=== PATIENT | female | born 1990 | race Two or more races ===

== ENCOUNTER 2024-01-24 09:42 | Outpatient (CLI) | payer MEDICAID, SELFPAY ==
[2024-01-24 10:11] LABS: Basophils # 0.1 K/mm3 (0-0.2); Eosinophils # 0.3 K/mm3 (0.0-0.4); Eosinophils % 3.3 % (0.1-12.0); Hematocrit 43.7 % (37.0-47.0); Hemoglobin 14.5 g/dL (12.2-16.2); Lymphocytes # 3.5 K/mm3 (0.7-4.5); Lymphocytes % 33.8 % (10-50); Mean Corpuscular HGB Conc 33.2 g/dL (31.8-35.4); Mean Corpuscular Hemoglobin 30.7 pg (27.0-31.2); Mean Corpuscular Volume 92.4 fl (81-99); Mean Platelet Volume 7.4 fl (7.4-10.4); Monocytes # 0.7 K/mm3 (0.1-1.0); Monocytes % 6.4 % (1.7-9.3); Neutrophils # 5.7 K/mm3 (1.8-7.8); Neutrophils % 55.5 % (37.0-80.0); Platelet Count 381 K/mm3 (142-424); Red Blood Count 4.73 M/mm3 (4.20-5.40); Red Cell Distribution Width 14.5 % (11.5-17.5); White Blood Count 10.2 K/mm3 (4.8-10.8)
[2024-01-24 10:46] LABS: Alanine Aminotransferase 34 U/L (12-78); Alkaline Phosphatase 146 U/L (38-126); Anion Gap 10.1 mEq/L (5-15); Aspartate Amino Transferase 49 U/L (14-36); Bilirubin,Direct 0.1 mg/dl (0.0-0.4); Bilirubin,Indirect 0.2 mg/dL (0.0-0.9); Bilirubin,Total 0.3 mg/dl (0.2-1.3); Bilirubin,Unconjugated 0.2 mg/dL (0.0-1.1); Blood Urea Nitrogen 12 mg/dl (7-17); Calcium 10.3 mg/dl (8.4-10.2); Carbon Dioxide 26 mmol/L (22.0-30.0); Chloride 110 mmol/L (98-107); Chol/HDL Ratio 4.2 (1-3.5); Cholesterol 235 mg/dl (140-200); Estimated Glomerular Filt Rate 117 ml/min (>60); GFR (African American) 141 ML/MIN (>60); Glucose 77 mg/dl (74-100); HDL Cholesterol 56 mg/dl (40-60); Magnesium 1.7 mg/dl (1.6-2.3); Potassium 4.1 mmoL/L (3.5-5.1); Sodium 142 mmol/L (136-145); Total Protein,Serum 6.6 g/dl (6.3-8.2); Triglycerides 185 mg/dl (30-150); VLDL Cholesterol 37 mg/dL (0-40)
[2024-01-24 10:56] LABS: Direct LDL Cholesterol 125.79 mg/dL (100-129)
[2024-01-24 10:59] LABS: Free T4 (Free Thyroxine) 0.94 ng/dl (0.78-2.19)
[2024-01-24 11:14] LABS: Thyroid Stimulating Hormone 0.92 uIU/mL (0.465-4.68)
== END 2024-01-24 23:59 | disposition home or self-care (01) ==
LOC: LAB 09:45
PROVIDERS: Visit Provider Nurse Practitioner
DX: R00.2 Palpitations (principal); I49.1 Atrial premature depolarization; Z86.79 Personal history of other diseases of the circulatory system
CPT/HCPCS: 36415; 80048; 80061; 80076; 83735; 84439; 84443; 85025; 93270

== ENCOUNTER 2024-02-19 19:46 | Emergency (ER) | payer MEDICAID, SELFPAY ==
[2024-02-19 19:46] VITALS: BP 106/58; PULSE 77; RESP 22; TEMP 36.9; O2SAT 100; BMI 31.9
--- NOTE | 2024-02-19 19:54 | ECG_ITS ---
APPROVED REPORT Exam: Resting ECG HR:60 bpm ECG Measurements Heart Rate 60 AXES ME 153 P 55 QRSd 102 QRS 68 QT 413 T 59 QTc 414 Conclusion SINUS RHYTHM NORMAL ECG UNCONFIRMED REPORT Electronically signed by : Basim Mccarthy, 02/19/2024 23:13:25
--- NOTE | 2024-02-19 19:59 | XR_ITS ---
PROCEDURE INFORMATION: Exam: XR Chest Exam date and time: 02/19/2024 8:23 PM Age: 33 years old Clinical indication: Chest wall pain; Additional info: Dyspnea TECHNIQUE: Imaging protocol: Radiologic exam of the chest. Views: 1 view. COMPARISON: No relevant prior studies available. FINDINGS: Lungs: Normal. Pleural spaces: Unremarkable. No pleural effusion. No pneumothorax. Heart/Mediastinum: Normal. Bones/joints: No acute abnormality. IMPRESSION: No acute findings.
[2024-02-19 20:00] VITALS: PULSE 60
--- NOTE | 2024-02-19 20:01 | ED_ITS ---
Discharge Plan Disposition Patient Disposition: Still a Patient Prescriptions Prescriptions: No Action buprenorphine-naloxone 8-2 mg film 1.5 film sublingual DAILY Patient Comments: Place 1&1/2 filmS under tongue once a day propranolol 40 mg tablet 40 mg PO BID Qty: 60 2RF Referrals Follow up/Referrals: Azael Sierra MD [Staff Physician] - See instructions Activity Restrictions/Add. Instructions Additional Instructions/Restrictions: Call Dr. Sierra for next available appointment return to the emergency room with any worsening symptoms no emergent medical condition identified today. Clinical Impressions Clinical Impression: Dizziness, Heart palpitations, Hypokalemia, Pre-syncope Discharge ED Provider: Juan Mccarthy General Adult HPI General Chief complaint: Arrhythmia/Palpitations Stated complaint: runs of svt with cp Time Seen by Provider: 02/19/24 19:56 Mode of Arrival: EMS Source of Information: Patient Limitations: No Limitations Description of Symptoms (Recalled from ER Triage Doc. by RN): pt has hx of SVT and going in and out of the rythym today, pt has been wearing a holter monitor and sees dr sierra on the History of Present Illness HPI narrative: Is a 33-year-old female who claims that she has a history of SVT presents today with near syncope lightheadedness and palpitations. She was at work states she fell and hit her head did not have any loss of consciousness but was very lightheaded and dizzy. She states that those symptoms have since almost completely resolved. She was recently in our cardiology office today had a 2- week event monitor that was planned and an echo and she is following with Dr. Sierra has an appointment on the of next month. EMS reported that she was in SVT but we do not have a rhythm strip to look at. Patient without any symptoms other than some dizziness at the moment. No nausea vomiting diarrhea changes in medications etc. Related Data Home Medications Medication Instructions Recorded Confirmed buprenorphine 8 mg-naloxone 2 mg 1.5 film sublingual DAILY 01/24/24 01/24/24 sublingual film Previous Rx's Medication Instructions Recorded propranolol 40 mg tablet 40 mg PO BID #60 tabs 01/24/24 Allergies Allergy/AdvReac Type Severity Reaction Status Date / Time NO KNOWN ALLERGIES Allergy Uncoded 01/24/24 09:11 [facility] Disclaimer: The information contained in this section may have been updated after the patient was seen, as this information can be updated by other users. Medical History HTN (hypertension) Bipolar 1 disorder Surgical History History of appendectomy Social History Smoking Status: Current every day smoker alcohol intake: never substance use type: marijuana current occupational status: employed Travel in the last 8 weeks: Inside the [place] ROS Obtained: Yes All systems reviewed & no additional complaints except as documented Physical Exam General General appearance: alert Respiratory Respiratory exam: Present normal lung sounds bilaterally; Absent respiratory distress Cardiovascular Cardiovascular exam: Present regular rate and normal rhythm Neurological Exam Neurological exam: Present alert, oriented X3 and other (Slightly tremulous) Medical Decision Making Shayan Inquiry Pt receiving controlled substance: No Vital Signs: 02/19/24 19:46 Temperature 98.5 F Temperature Source Oral Pulse Rate [Right Radial] 77 Respiratory Rate 22 Blood Pressure [Right Arm] 106/58 L Blood Pressure Mean [Right Arm] 74 02 Sat by Pulse Oximetry 100 Oxygen Delivery Method Room Air Lab Data Lab results reviewed: Yes I reviewed the patient's lab results. Lab Results 02/19/24 20:10: WBC 9.7, RBC 4.65, Hgb 14.1, Hct 43.4, MCV 93.3, MCH 30.2, MCHC 32.4, RDW 14.3, Plt Count 363, MPV 7.4, Neut % (Auto) 49.5, Lymph % (Auto) 40.5, [place] % (Auto) 4.4, Eos % (Auto) 4.6, Baso % (Auto) 1.0, Neut # (Auto) 4.8, Lymph # (Auto) 3.9, [place] # (Auto) 0.4, Eos # (Auto) 0.4, Baso # (Auto) 0.1, Sodium 140, Potassium 3.1 L, Chloride 108 H, Carbon Dioxide 28, Anion Gap 7.1, BUN 12, Creatinine 0.60, Estimated Creat Clear 181, Estimated GFR 117, Est GFR ( Amer) 141, Glucose 77, Calcium 9.5, Magnesium 1.7, Total Bilirubin 0.3, AST 57 H , ALT 60, Alkaline Phosphatase 140 H, Troponin I < 0.01, Total Protein 7.3, Albumin 4.1, Globulin 3.2, Albumin/Globulin Ratio 1.3, TSH 1.25 02/19/24 20:10 02/19/24 20:10 Orders (Tests/Meds): ED MEDICATIONS Generic Name Dose Route Start Last Admin Trade Name Freq PRN Reason Stop Dose Admin Potassium Chloride 60 meq 02/19/24 21:32 Potassium Chloride 20meq Tab PO 02/19/24 21:33 ONCE ONE Discontinued Medications Generic Name Dose Route Start Last Admin Trade Name Freq PRN Reason Stop Dose Admin Lactated Ringer's 1,000 mls @ 999 mls/hr 02/19/24 20:00 02/19/24 20:13 Lactated Ringer's 1000 Ml Bag IV 02/19/24 21:00 999 mls/hr .Q1H1M KARRI Administration ORDERS Category Date Time Status CXR --portable [XR chest portable] Stat Exams 02/19/24 19:59 Completed CBC w/Auto Diff [Complete Blood Count Auto Diff] Stat Lab 02/19/24 20:10 Completed CMP [Comprehensive Metabolic Panel] Stat Lab 02/19/24 20:10 Completed Magnesium Stat Lab 02/19/24 20:10 Completed TSH [Thyroid Stimulating Hormone] Stat Lab 02/19/24 20:10 Completed Trop I [Troponin I] Stat Lab 02/19/24 20:10 Completed Troponin I Q3H Lab 02/19/24 23:00 Ordered Troponin I Q3H Lab 02/20/24 02:00 Ordered ECG Data Tracing #1: I reviewed this ECG and interpreted as documented below: Ventricular to 60 normal sinus rhythm no acute ischemic changes noted normal axis no conduction abnormalities normal EKG Medical Decision Narrative: 33-year-old female with a questionable history of SVT is being worked up and followed by cardiology with an event monitor and echo presents today with similar symptoms. She is stable EKG is normal will place her on a monitor check electrolytes TSH magnesium etc. IV fluids will be administered and if all normal she will be able to be followed up outpatient with cardiology as previously instructed.- Reassessment 933 patient asymptomatic feels much better vital signs stable has not had any recurrence of her symptoms potassium mildly depressed she was given 60 p.o. potassium. Will follow-up with Dr. Sierra she did recently have a 2- week monitor and she is post to follow-up with them for results given the fact that she is in the emergency department I advised that she call tomorrow for an earlier appointment to see if there is any significant abnormalities on that. Still awaiting her echo because of insurance reasons. She was discharged in stable condition. Critical Care Critical Care Time Critical Care Time: No
[2024-02-19] MEDS: LACTATED RINGERS 1000ML 1,000 ML 999 ML IV (20:13)
[2024-02-19 20:20] LABS: Basophils # 0.1 K/mm3 (0-0.2); Eosinophils # 0.4 K/mm3 (0.0-0.4); Eosinophils % 4.6 % (0.1-12.0); Hematocrit 43.4 % (37.0-47.0); Hemoglobin 14.1 g/dL (12.2-16.2); Lymphocytes # 3.9 K/mm3 (0.7-4.5); Lymphocytes % 40.5 % (10-50); Mean Corpuscular HGB Conc 32.4 g/dL (31.8-35.4); Mean Corpuscular Hemoglobin 30.2 pg (27.0-31.2); Mean Corpuscular Volume 93.3 fl (81-99); Mean Platelet Volume 7.4 fl (7.4-10.4); Monocytes # 0.4 K/mm3 (0.1-1.0); Monocytes % 4.4 % (1.7-9.3); Neutrophils # 4.8 K/mm3 (1.8-7.8); Neutrophils % 49.5 % (37.0-80.0); Platelet Count 363 K/mm3 (142-424); Red Blood Count 4.65 M/mm3 (4.20-5.40); Red Cell Distribution Width 14.3 % (11.5-17.5); White Blood Count 9.7 K/mm3 (4.8-10.8)
[2024-02-19 20:27] LABS: Chloride 108 mmol/L (98-107)
[2024-02-19 20:28] LABS: Potassium 3.1 mmoL/L (3.5-5.1); Sodium 140 mmol/L (136-145)
[2024-02-19 20:30] LABS: Alanine Aminotransferase 60 U/L (12-78); Aspartate Amino Transferase 57 U/L (14-36); Blood Urea Nitrogen 12 mg/dl (7-17); Creatinine Clearance Estimated 181 mL/min (50-200); Estimated Glomerular Filt Rate 117 ml/min (>60); GFR (African American) 141 ML/MIN (>60)
[2024-02-19 20:31] LABS: Albumin Level 4.1 g/dl (3.5-5.0); Albumin/Globulin Ratio 1.3 (1.1-1.8); Alkaline Phosphatase 140 U/L (38-126); Anion Gap 7.1 mEq/L (5-15); Bilirubin,Total 0.3 mg/dl (0.2-1.3); Calcium 9.5 mg/dl (8.4-10.2); Carbon Dioxide 28 mmol/L (22.0-30.0); Globulin 3.2 g/dL (1.3-3.2); Glucose 77 mg/dl (74-100); Magnesium 1.7 mg/dl (1.6-2.3); Total Protein,Serum 7.3 g/dl (6.3-8.2)
[2024-02-19 20:51] LABS: Troponin I < 0.01 ng/ml (0.00-0.034)
[2024-02-19 21:02] LABS: Thyroid Stimulating Hormone 1.25 uIU/mL (0.465-4.68)
[2024-02-19] MEDS: POTASSIUM CHLORIDE 20MEQ TAB 60 MEQ PO (21:36)
[2024-02-19 21:39] VITALS: BP 121/72; PULSE 72; RESP 15; TEMP 36.6; O2SAT 99
== END 2024-02-19 21:40 | disposition still patient (30) ==
PROVIDERS: Emergency Provider Student in an Organized Health Care Education/Training Program
DX: E87.6 Hypokalemia (principal); R55 Syncope and collapse; R00.2 Palpitations; R42 Dizziness and giddiness; I10 Essential (primary) hypertension; F17.210 Nicotine dependence, cigarettes, uncomplicated; Z86.79 Personal history of other diseases of the circulatory system
CPT/HCPCS: 71045; 80053; 83735; 84443; 84484; 85025; 93005; 96360; 99284; J7120

== ENCOUNTER 2024-02-28 17:13 | Emergency (ER) | payer MEDICAID, SELFPAY ==
[2024-02-28 17:20] VITALS: BP 120/72; PULSE 96; RESP 18; TEMP 36.9; O2SAT 97; BMI 31.9
--- NOTE | 2024-02-28 17:26 | ED_ITS ---
Discharge Plan Disposition Patient Disposition: Home, Self-Care Condition: Good Prescriptions Prescriptions: New cyclobenzaprine 10 mg Tablet 10 mg PO BID PRN (Reason: Muscle Spasm) Qty: 20 0RF methylprednisolone 4 mg Tablets,Dose Pack 4 mg PO DIRECTED 6 Days Qty: 21 0RF Rx Instructions: Take 1 pack as directed for 6 days No Action buprenorphine-naloxone 8-2 mg film 1.5 film sublingual DAILY Patient Comments: Place 1&1/2 filmS under tongue once a day oxcarbazepine 300 mg tablet 300 mg PO DAILY mirtazapine 30 mg tablet 30 mg PO HS Patient Comments: TAKE 1 TABLET BY MOUTH ONCE DAILY AT BEDTIME aripiprazole 10 mg tablet 10 mg PO DAILY Patient Comments: TAKE 1 TABLET BY MOUTH ONCE DAILY FOR 30 DAYS Trintellix 20 mg tablet 20 mg PO DAILY Patient Comments: TAKE 1 TABLET BY MOUTH ONCE DAILY metoprolol succinate 25 mg tablet extended release 24 hr 25 mg PO DAILY Qty: 30 2RF Referrals Follow up/Referrals: Provider,Referral, MD [Primary Care Provider] - See instructions Activity Restrictions/Add. Instructions Additional Instructions/Restrictions: Go home and rest. It would be best if you rested tomorrow too. No heavy lifting. No twisting. Take the oral medications as directed. The muscle relaxer (cyclobenzaprine--Flexeril) will make you drowsy, so don't drive or operate heavy machinery after taking it. Follow up with your regular doctor. GO TO THE ER FOR ANY WORSENING SYMPTOMS OR CONCERN, ESPECIALLY BOWEL OR BLADDER ISSUES, SADDLE AREA NUMBNESS, FEVER, ETC Clinical Impressions Clinical Impression: Low back pain with sciatica Instructions Patient Instructions: Low Back Pain, DI for Low Back Pain, Cyclobenzaprine, Methylprednisolone Discharge ED Provider: Basim Francisco [facility] General Stated complaint: back pain, bilateral leg pain. Time Seen by Provider: 02/28/24 17:22 History of Present Illness Provider Complaint: She states that for the past 3 days she has had low back pain that radiates down both legs. She denies any urinary complaints. She denies any fall or trauma. Related Data Home Medications Medication Instructions Recorded Confirmed buprenorphine 8 mg-naloxone 2 mg 1.5 film sublingual DAILY 01/24/24 02/28/24 sublingual film aripiprazole 10 mg tablet 10 mg PO DAILY 02/22/24 02/28/24 mirtazapine 30 mg tablet 30 mg PO HS 02/22/24 02/28/24 oxcarbazepine 300 mg tablet 300 mg PO DAILY 02/22/24 02/28/24 vortioxetine 20 mg tablet 20 mg PO DAILY 02/22/24 02/28/24 (Trintellix) Previous Rx's Medication Instructions Recorded metoprolol succinate 25 mg 25 mg PO DAILY #30 tabs 02/22/24 tablet,extended release 24 hr cyclobenzaprine 10 mg tablet 10 mg PO BID PRN Muscle Spasm #20 02/28/24 tabs methylprednisolone 4 mg tablets in 4 mg PO DIRECTED 6 days #21 tabs 02/28/24 a dose pack Allergies Allergy/AdvReac Type Severity Reaction Status Date / Time NO KNOWN ALLERGIES Allergy Unknown Uncoded 02/28/24 17:36 [facility] Disclaimer: The information contained in this section may have been updated after the patient was seen, as this information can be updated by other users. Medical History (Updated 02/28/24 @ 18:04 by Basim Francisco APRN) Syncope HTN (hypertension) Bipolar 1 disorder Surgical History History of appendectomy Social History Smoking Status: Current every day smoker alcohol intake: never substance use type: marijuana current occupational status: employed Travel in the last 8 weeks: Inside the [place] ROS Obtained: Yes All systems reviewed & no additional complaints except as documented Constitutional Constitutional: Denies chills and Denies fever(s) Eyes Eyes: Denies eye discharge ENT Ears, Nose, Mouth, and Throat: Denies dizziness, Denies otalgia and Denies sore throat Cardiovascular Cardiovascular: Denies chest pain Respiratory Respiratory: Denies shortness of breath, Denies chest congestion, Denies cough, Denies stridor and Denies wheezing Gastrointestinal Gastrointestingal: Denies nausea or vomiting Genitourinary Female Genitourinary: Denies dysuria, Denies urinary frequency, Denies urinary incontinence, Denies urinary hesitancy and Denies urinary urgency Musculoskeletal Musculoskeletal: Reports as per HPI and Reports back pain Integumentary/Breasts Skin/Breast: Denies rash Neurologic Neurologic: Denies dizziness and Denies paresthesias Allergic/Immunologic Allergic/Immunologic: Denies wheezing Physical Exam General General appearance: alert and in no apparent distress Head Head exam: atraumatic, normocephalic and normal inspection Eye Eye exam: Present normal appearance, PERRL and EOMI ENT ENT exam: Present normal exam, normal oropharynx, mucous membranes moist, TM's normal bilaterally and normal external ear exam Neck Neck exam: Present normal inspection, full ROM and trachea midline; Absent meningismus or lymphadenopathy Chest Chest inspection: Present normal inspection and symmetric chest wall rise; Absent tenderness Respiratory Respiratory exam: Present normal lung sounds bilaterally; Absent respiratory dis tress Cardiovascular Cardiovascular exam: Present regular rate and normal rhythm; Absent JVD Abdominal Exam Abdominal exam: Present soft and normal bowel sounds; Absent distention, tenderness or guarding Extremities Exam Extremities exam: Present normal inspection, full ROM and normal capillary refill; Absent calf tenderness Back Exam Back exam: Present normal inspection; Absent tenderness Neurological Exam Neurological exam: Present alert, oriented X3, CN II-XII intact, normal gait and reflexes normal; Absent motor sensory deficit Expanded Neurological Exam Cranial nerves: Normal: EOM function (II, III, IV, ), facial sensation (V), facial palsy (VII), gag reflex (IX), spinal accessory function (XI) and tongue deviation (XII) Cerebellar function: normal gait Motor strength - LUE: 5/5 Motor strength - RUE: 5/5 Motor strength - LLE: 5/5 Motor strength - RLE: 5/5 Upper motor neuron exam: Normal: cori neglect and sensory extinction Sensory exam upper extremity: Normal: light touch and 2 point discrimination Sensory exam lower extremity: Normal: light touch and 2 point discrimination DTR: 2+: biceps (L), biceps (R), patellar (L), patellar (R), Achilles tendon (L) and Achilles tendon (R) Spinal cord function: Absent saddle anesthesia Psychiatric Psychiatric exam: Present normal affect and normal mood Skin Skin exam: Present warm, dry, intact and normal color Lymphatic Lymphatic Findings: no adenopathy Medical Decision Making Medical Records Medical records reviewed: No I reviewed the patient's medical records. Shayan Inquiry Pt receiving controlled substance: No
[2024-02-28 18:08] VITALS: BP 120/72; PULSE 96; RESP 18; TEMP 36.9; O2SAT 97
== END 2024-02-28 18:08 | disposition home or self-care (01) ==
PROVIDERS: Emergency Provider Nurse Practitioner Family
DX: M54.41 Lumbago with sciatica, right side (principal); M54.42 Lumbago with sciatica, left side; F17.210 Nicotine dependence, cigarettes, uncomplicated
CPT/HCPCS: 99204; 99212; G0463

== ENCOUNTER 2024-03-05 13:23 | Outpatient (CLI) | payer MEDICAID, SELFPAY ==
--- NOTE | 2024-03-05 13:24 | CA_ITS ---
APPROVED REPORT EXAM: Comprehensive 2D, Doppler, and color-flow Echocardiogram Table Setter: Shannan Crawford RT(R) Ht: 5 ft 4 in Wt: 191lbs BSA: 1.92 BP: 121/66 mmHg Indications: SVT, CP, smoker, HTN, palpitations, bipolar, vertigo, excessive sweating. 2D Dimensions Left Atrium 4.08 cm F: 2.7 - 3.8 LA Volume 51.90 mL LVOT 1.99 cm (M/F) 1.5-2.5 LA Volume Index 27.03 mL/m2 (M/F) 16-34 EF AP4 50.30 % GL Strain -18.7 % M-Mode Dimensions RVDd 2.55 cm (0.9-2.6) LVDd 4.59 cm (3.5-5.7) Ao Diam 2.67 cm (2.0-3.7) LVDs 3.37 cm (3.5-5.7) IVSd 0.85 cm (0.6-1.1) PWd 0.89 cm (0.6-1.1) EF (Teich) 52.10% FS 26.60% EDV (Teich) 96.80 mL ESV (Teich) 46.40 mL LV Diastology E Decel Time 236 (160-240 msec) E/A Ratio 1.6 MED E' 10.4 (>= 7 cm/sec) E'/MED E' Ratio 7.80 (<= 14) LAT E' 15.5 (>= 10 cm/sec) E/LAT E' Ratio 5.23 (<= 14) Mitral Valve MV E Max Talon. 81.0 (40-130 cm/s) MV A Velocity 52.0 (40-130 cm/s) E/A Ratio 1.55 MV Decel. Time 236 (160-240 ms) Left Ventricle The left ventricle is normal size. The left ventricular systolic function is normal. The left ventricular ejection fraction is within the normal range. There is normal left ventricular wall thickness. There is normal LV segmental wall motion. The left ventricular diastolic function is normal. LVEF is 55%. Right Ventricle The right ventricle is normal size. The right ventricular systolic function is normal. Atria The left atrium size is normal. The right atrium size is normal. There is no Doppler evidence of interatrial shunt. Aortic Valve The aortic valve opens well. There is no aortic valvular stenosis. No aortic regurgitation is present. Mitral Valve The mitral valve is normal in structure. No evidence of mitral valve stenosis. Trace mitral regurgitation. Tricuspid Valve The tricuspid valve leaflets are thin and pliable. Mild tricuspid regurgitation. RVSP is 20-25 mmHg. Pulmonic Valve The pulmonary valve is normal in structure. Trace pulmonic regurgitation. Great Vessels The aortic root is normal in size. The ascending aorta is normal in size. IVC is normal in size and collapses >50% with inspiration. Pericardium There is no pericardial effusion. Other Information Study Quality: Adequate Conclusion Normal biventricular systolic function. Mild TR. Electronically signed by : Sharon Reilly MD 03/06/2024 13:40:26
== END 2024-03-05 23:59 | disposition home or self-care (01) ==
LOC: RT 13:24
PROVIDERS: Visit Provider Nurse Practitioner
DX: R00.2 Palpitations (principal); Z86.79 Personal history of other diseases of the circulatory system; I49.1 Atrial premature depolarization
CPT/HCPCS: 93306

== ENCOUNTER 2024-05-14 11:28 | Emergency (ER) | payer MEDICAID, SELFPAY ==
[2024-05-14 11:28] VITALS: BP 118/65; PULSE 70; RESP 16; TEMP 36.6; O2SAT 98; BMI 34.3
--- NOTE | 2024-05-14 11:29 | ECG_ITS ---
APPROVED REPORT Exam: Resting ECG HR:59 bpm ECG Measurements Heart Rate 59 AXES OK 151 P 51 QRSd 105 QRS 54 QT 421 T 49 QTc 421 Conclusion Sinus bradycardia Electronically signed by : MIGUEL CORDOVA, 05/15/2024 21:59:59
--- NOTE | 2024-05-14 11:31 | XR_ITS ---
FINAL REPORT CLINICAL HISTORY: palpitations COMPARISON: 02/19/2024 FINDINGS: SINGLE-VIEW CHEST The heart size is normal. The mediastinum is normal. The lungs are underinflated. There is no pneumothorax. IMPRESSION: No acute cardiopulmonary process. Reviewed, Interpreted and Dictated by Frandy Rdz MD Transcribed by Neli Pryor Authenticated and [facility]
--- NOTE | 2024-05-14 11:38 | PC.NURSE ---
RAD at for CXR
[2024-05-14 11:47] LABS: Basophils % 0.4 % (0.1-2.0); Eosinophils # 0.1 K/mm3 (0.0-0.4); Eosinophils % 1.1 % (0.1-12.0); Hematocrit 44.8 % (37.0-47.0); Hemoglobin 14.1 g/dL (12.2-16.2); Lymphocytes # 1.7 K/mm3 (0.7-4.5); Lymphocytes % 20.2 % (10-50); Mean Corpuscular HGB Conc 31.5 g/dL (31.8-35.4); Mean Corpuscular Hemoglobin 30.5 pg (27.0-31.2); Mean Corpuscular Volume 96.8 fl (81-99); Mean Platelet Volume 7.2 fl (7.4-10.4); Monocytes # 0.4 K/mm3 (0.1-1.0); Monocytes % 4.1 % (1.7-9.3); Neutrophils # 6.3 K/mm3 (1.8-7.8); Neutrophils % 74.2 % (37.0-80.0); Platelet Count 370 K/mm3 (142-424); Red Blood Count 4.63 M/mm3 (4.20-5.40); Red Cell Distribution Width 13.7 % (11.5-17.5); White Blood Count 8.5 K/mm3 (4.8-10.8)
--- NOTE | 2024-05-14 11:50 | ED_ITS ---
Discharge Plan Disposition Patient Disposition: Home, Self-Care Prescriptions Prescriptions: No Action furosemide [Lasix] 20 mg tablet 20 mg PO DAILY PRN (Reason: edema) Qty: 30 3RF buprenorphine-naloxone 8-2 mg film 1.5 film sublingual DAILY Patient Comments: Place 1&1/2 filmS under tongue once a day metoprolol succinate [Toprol XL] 100 mg tablet extended release 24 hr 50 mg PO DAILY Qty: 90 3RF oxcarbazepine 300 mg tablet 300 mg PO DAILY mirtazapine 30 mg tablet 30 mg PO HS Patient Comments: TAKE 1 TABLET BY MOUTH ONCE DAILY AT BEDTIME aripiprazole 10 mg tablet 10 mg PO DAILY Patient Comments: TAKE 1 TABLET BY MOUTH ONCE DAILY FOR 30 DAYS Trintellix 20 mg tablet 20 mg PO DAILY Patient Comments: TAKE 1 TABLET BY MOUTH ONCE DAILY cyclobenzaprine 10 mg Tablet 10 mg PO BID PRN (Reason: Muscle Spasm) Qty: 20 0RF methylprednisolone 4 mg Tablets,Dose Pack 4 mg PO DIRECTED 6 Days Qty: 21 0RF Rx Instructions: Take 1 pack as directed for 6 days Referrals Follow up/Referrals: Dc Galdamez MD [Staff Physician] - See instructions Activity Restrictions/Add. Instructions Additional Instructions/Restrictions: Follow-up with Dr. Galdamez regarding this visit to the emergency department and hyperthyroidism in the setting of palpitations. Hepatitis labs are pending, but these will result and you will be called if they are positive. Call your family doctor to establish care for this visit to the emergency department and schedule follow-up within 48 hours to ensure improvement. If you have any worsening of your condition or any other concerning signs or symptoms, return to the emergency department or your primary care doctor for further evaluation. Clinical Impressions Clinical Impression: Palpitations, Hyperthyroidism Print Language Print Language: Vincentian Discharge ED Provider: Mark Fischer HPI General Chief Complaint: Arrhythmia/Palpitations Stated Complaint: PALPITATIONS/HX SVT Time Seen by Provider: 05/14/24 11:30 History of Present Illness HPI narrative: Please note that above description of symptoms, in this electronic medical record under categorization of recalled from ER triage doctor by RN are reflective of an initial nursing assessment, however, is not reflective of my full history and physical exam that was personally taken and clarified. Consequentially, this preceding description of symptoms, which may include the patient's categorized chief complaint in the EMR, do not reflect my personal clinical impression, and the ultimate description of history of present illness and patient stated complaints should be deferred to this section of the note. Unless stated otherwise or congruent with this section of the note, additional signs, symptoms, or incongruence should be interpreted as inaccurate with my clinical impression. Related Data Home Medications ?Medication ?Instructions ?Recorded ?Confirmed buprenorphine 8 mg-naloxone 2 mg 1.5 film sublingual DAILY 01/24/24 04/24/24 sublingual film aripiprazole 10 mg tablet 10 mg PO DAILY 02/22/24 04/24/24 mirtazapine 30 mg tablet 30 mg PO HS 02/22/24 04/24/24 oxcarbazepine 300 mg tablet 300 mg PO DAILY 02/22/24 04/24/24 vortioxetine 20 mg tablet 20 mg PO DAILY 02/22/24 04/24/24 (Trintellix) Previous Rx's ?Medication ?Instructions ?Recorded cyclobenzaprine 10 mg tablet 10 mg PO BID PRN Muscle Spasm #20 02/28/24 tabs methylprednisolone 4 mg tablets in 4 mg PO DIRECTED 6 days #21 tabs 02/28/24 a dose pack metoprolol succinate 100 mg 50 mg (1/2 x 100 mg) PO DAILY #90 03/06/24 tablet,extended release 24 hr tabs (Toprol XL) furosemide 20 mg tablet (Lasix) 20 mg PO DAILY PRN edema #30 tabs 04/04/24 Allergies Allergy/AdvReac Type Severity Reaction Status Date / Time NO KNOWN ALLERGIES Allergy Unknown Uncoded 04/24/24 14:19 [facility] Disclaimer: The information contained in this section may have been updated after the patient was seen, as this information can be updated by other users. Medical History Syncope HTN (hypertension) Bipolar 1 disorder Surgical History History of appendectomy Social History Smoking Status: Current every day smoker alcohol intake: never substance use type: marijuana current occupational status: employed Travel in the last 8 weeks: Inside the [place] ROS Obtained: Yes All systems reviewed & no additional complaints except as documented Physical Exam General General appearance: alert Neck Neck exam: Present trachea midline Chest Chest inspection: Present normal inspection and symmetric chest wall rise Respiratory Respiratory exam: Present normal lung sounds bilaterally; Absent respiratory distress, wheezes, stridor, accessory muscle use or prolonged expiratory phase Cardiovascular Cardiovascular exam: Present regular rate, normal rhythm and other (Pulses equal and symmetric in upper and lower extremities) Extremities Exam Extremities exam: Absent edema Neurological Exam Neurological exam: Present alert, oriented X3 and CN II-XII intact Skin Skin exam: Present warm and dry; Absent cyanosis, diaphoresis or pallor HEART Score HEART Score HEART Score assessment performed?: Yes HEART Score: 0 Critical Care Critical Care Time Critical Care Time: No Medical Decision Making Medical Records Medical records reviewed: Yes I reviewed the patient's medical records. Shayan Inquiry Pt receiving controlled substance: No Shayan was queried for this patient: No Vital Signs Vital Signs: 05/14/24 11:28 05/14/24 13:30 05/14/24 14:00 Temperature 97.8 F Temperature Source Oral Pulse Rate 69 70 Pulse Rate [Right] 70 Respiratory Rate 16 17 15 Blood Pressure 121/74 115/71 Blood Pressure [Right Arm] 118/65 Blood Pressure Mean [Right Arm] 82 Blood Pressure Source [Right Arm] Automatic Cuff 02 Sat by Pulse Oximetry 98 100 100 Oxygen Delivery Method Room Air Room Air Room Air Lab Data Labs: Lab Results 05/14/24 11:38: WBC 8.5, RBC 4.63, Hgb 14.1, Hct 44.8, MCV 96.8, MCH 30.5, MCHC 31.5 L, RDW 13.7, Plt Count 370, MPV 7.2 L, Neut % (Auto) 74.2, Lymph % (Auto) 20.2, [place] % (Auto) 4.1, Eos % (Auto) 1.1, Baso % (Auto) 0.4, Neut # (Auto) 6.3, Lymph # (Auto) 1.7, [place] # (Auto) 0.4, Eos # (Auto) 0.1, Baso # (Auto) 0.0, D- Dimer 0.67 H, Sodium 140, Potassium 3.5, Chloride 110 H, Carbon Dioxide 25, Anion Gap 8.5, BUN 10, Creatinine 0.70, Estimated GFR 97, Est GFR ( Amer) 117, Glucose 92, Calcium 8.9, Magnesium 2.1, Total Bilirubin 0.8, AST 224 H, ALT 330 H*, Alkaline Phosphatase 128 H, Troponin I < 0.01, Total Protein 7.3, Albumin 4.3, Globulin 3.0, Albumin/Globulin Ratio 1.4, TSH 0.25 L, Thyroxine (T4) 18.3 H, HCG, Quant < 2 05/14/24 11:38 05/14/24 11:38 Response Orders (Tests/Meds): ED MEDICATIONS Discontinued Medications Generic Name Dose Route Start Last Admin Trade Name Freq PRN Reason Stop Dose Admin Iopamidol 75 ml 05/14/24 13:10 05/14/24 13:11 Iopamidol-370 (76%);100ml Bottle IV 05/14/24 13:11 75 ml ONCE ONE Administration Sodium Chloride 50 ml 05/14/24 13:10 05/14/24 13:11 0.9 % Sodium Chloride 50 Ml Vial IV 05/14/24 13:11 50 ml ONCE ONE Administration Sodium Chloride 10 ml 05/14/24 13:10 05/14/24 13:11 Sodium Chloride 0.9% 10ml Syr (Rad Only) IV 05/14/24 13:11 10 ml ONCE ONE Administration ORDERS Category Date Time Status CT angio abdomen pelvis Stat Cat Scan 05/14/24 12:[address] angio chest PE protocol Stat Cat Scan 05/14/24 12:25 Taken XR chest portable Stat Exams 05/14/24 11:31 Completed CBC w/Auto Diff [Complete Blood Count Auto Diff] Stat Lab 05/14/24 11:38 Completed Comprehensive Metabolic Panel Stat Lab 05/14/24 11:38 Completed D-Dimer Stat Lab 05/14/24 11:38 Completed HCG,Quantitative Stat Lab 05/14/24 11:38 Completed HCV RNA PCR, Quant Stat Lab 05/14/24 13:15 Received HIV-1 Quant. RNA PCR Routine Lab 05/14/24 11:38 Received Hepatitis Panel Stat Lab 05/14/24 13:15 Received Magnesium Stat Lab 05/14/24 11:38 Completed T4 (Thyroxine) Stat Lab 05/14/24 11:38 Completed TSH [Thyroid Stimulating Hormone] Stat Lab 05/14/24 11:38 Completed Troponin I Q3H Lab 05/14/24 17:45 Ordered Troponin I Stat Lab 05/14/24 11:38 Completed MDM Narrative Medical Decision Narrative: 34-year-old female history of SVT psych issues, not currently taking her psychiatric meds, but taking metoprolol presenting with concern for palpitations. Patient states that she has had palpitations over the past few days not associated chest pain. She states that they are exertional, nonpositional. Better at rest. Associated with shortness of breath and nausea, no vomiting. No recent illness. Patient states she has been taking her metoprolol as prescribed. Has had high heart rate alerts from her Apple Watch, so came in for further evaluation. History was obtained via conversation with patient. On arrival, patient hemodynamically stable, alert, oriented x4, appropriate, GCS 15, moving all extremities spontaneously, pupils equal and reactive to light. Full physical exam performed and significant for bradycardic patient no acute distress. Saturating appropriately on room air around 100%, nontachycardic. Cardiac exam normal, pulses equal and symmetric in upper and lower extremities. Abdomen soft, nontender, nondistended. Unremarkable overall. Differential includes SVT, medication noncompliance, thyroid versus other endocrinologic abnormality, PE, pneumothorax, among others. Patient placed on continuous cardiac monitoring and continuous pulse ox with initial blood pressure 118/65, heart rate 60, saturation 100% on room air. Independent interpretation of EKG shows sinus bradycardia without ST or T wave changes concerning for acute ischemia. LA 151, QRS 105, QTc 421. [place] normal. Workup independently interpreted and significant for nonactionable CBC. Elevated dimer at 0.67. Patient's chemistry concerning for LFTs elevated AST 224, ALT 330, alkaline phosphatase 128 with normal bilirubin. This is most concerning for inflammatory hepatitis. On independent interpretation of imaging, no acute dissection or PE on CTA of the chest. CTA of the abdomen and pelvis without obvious intrahepatic abnormalities. Thyroid studies concerning for clinical hyperthyroidism with T4 elevated 18.3, TSH low at 0.25. See radiology read for full review of final results. Heart score 0. On reevaluation, patient resting comfortably. Further conversation reveals that patient was told she may have hepatitis at some point in the past, but was later told that she does not. Has never had hepatitis labs drawn, never treated for hepatitis. Hepatitis C as well as HIV was sent alongside for hepatitis panel. Regarding social determinants of health, patient also does not have a primary care physician, referral was placed to Dr. Galdamez, referral information placed in discharge paperwork, patient is agreeable to this. Given patient presentation, workup, history, this most likely represents clinical hyperthyroidism with associated palpitations. It was explained that hyperthyroidism medications are not typically started from the emergency department given need for monitoring of liver function test, blood counts, etc. Patient states that she is agreeable to outpatient management and following up with PCP. Because patient at baseline without signs or symptoms of clinical decompensation, deemed appropriate for discharge. Results were relayed to patient who voiced understanding and were agreeable to outpatient management and follow up. I discussed my clinical impression with patient and answered all questions. At this time, the evidence for any other entities in the differential is insufficient to warrant any further testing or ED observation. This was explained as well. Advisory was given that persistent or worsening symptoms require further evaluation. I confirmed the understanding of this discussion. Flight Engineer disclaimer Much of this encounter note is an electronic strategic planning analyst spoken language to printed text. Electronic strategic planning analyst of the spoken language may permit errors. Although I have reviewed the note, some errors may still exist.
[2024-05-14 11:55] LABS: Albumin Level 4.3 g/dl (3.5-5.0); Chloride 110 mmol/L (98-107)
[2024-05-14 11:56] LABS: Potassium 3.5 mmoL/L (3.5-5.1); Sodium 140 mmol/L (136-145)
[2024-05-14 11:58] LABS: Alanine Aminotransferase 330 U/L (12-78); Alkaline Phosphatase 128 U/L (38-126); Anion Gap 8.5 mEq/L (5-15); Aspartate Amino Transferase 224 U/L (14-36); Bilirubin,Total 0.8 mg/dl (0.2-1.3); Blood Urea Nitrogen 10 mg/dl (7-17); Carbon Dioxide 25 mmol/L (22.0-30.0); Estimated Glomerular Filt Rate 97 ml/min (>60); GFR (African American) 117 ML/MIN (>60)
[2024-05-14 11:59] LABS: Albumin/Globulin Ratio 1.4 (1.1-1.8); Calcium 8.9 mg/dl (8.4-10.2); Glucose 92 mg/dl (74-100); Magnesium 2.1 mg/dl (1.6-2.3); Total Protein,Serum 7.3 g/dl (6.3-8.2)
[2024-05-14 12:13] LABS: Troponin I < 0.01 ng/ml (0.00-0.034)
[2024-05-14 12:17] LABS: T4 (Thyroxine) 18.3 ug/dl (5.53-11.0)
[2024-05-14 12:18] LABS: D-Dimer 0.67 ug/mL (0.0-0.5); HCG,Quantitative < 2 mIU/ml (0-5.42)
--- NOTE | 2024-05-14 12:25 | CT_ITS ---
FINAL REPORT TECHNIQUE: The patient was injected with IV contrast. Axial images were obtained through the chest in a PE protocol. 3-D reconstruction images were also performed. Individualized dose reduction techniques using automated exposure control or adjustment of the MA and/or KV according to patient's size were employed. CLINICAL HISTORY: dimer, palpitations, soa COMPARISON: None FINDINGS: Mediastinal vasculature is adequately opacified. No pulmonary artery filling defects are identified to suggest PE. There is no aortic dissection. Note is made of an aberrant right subclavian artery. There is no axillary adenopathy. There is no hilar or mediastinal adenopathy. The heart size is normal. There is no pericardial or pleural effusion. Limited images of the upper abdomen are unremarkable. No suspicious infiltrate or nodule is identified. A calcified node in the subcarinal region is noted. IMPRESSION: No pulmonary embolus or dissection. Reviewed, Interpreted and Dictated by Frandy Rdz MD Transcribed by Ashley Christianson Authenticated and [facility]
--- NOTE | 2024-05-14 12:27 | CT_ITS ---
FINAL REPORT TECHNIQUE: Pre-and postcontrast images of the abdomen and pelvis were performed by computed tomography. Extensive 3-D reconstruction images were performed. A CTA was performed. This study was performed with techniques to keep radiation doses as low as reasonably achievable (ALARA). Individualized dose reduction techniques using automated exposure control or adjustment of mA and/or kV according to the patient''s size were employed. CLINICAL HISTORY: palpitations, soa, LFT elevations FINDINGS: ABDOMEN/PELVIS: There is mild fatty infiltration of the liver. The gallbladder is present. The spleen and pancreas are unremarkable. There are small nodules in the adrenal glands bilaterally. Nodules measure up to 1.2 cm, probably due to adenomas. The kidneys are unremarkable. The appendix is normal. The uterus is anteverted. Bilateral tubal ligation clips are identified. There is a 3.2 x 2.2 cm cystic structure in the left adnexal region, probably due to physiologic ovarian cyst. CTA: The abdominal aorta is proper caliber. The SMA, celiac axis, and ALEKS are patent. There is no significant stenosis or calcification. The renal arteries are patent bilaterally. The iliacs are unremarkable. IMPRESSION: Mild fatty liver. Bilateral adrenal gland nodules, probably due to adenomas. Reviewed, Interpreted and Dictated by Frandy Rdz MD Transcribed by Neli Pryor Authenticated and [facility]
[2024-05-14 12:31] LABS: Thyroid Stimulating Hormone 0.25 uIU/mL (0.465-4.68)
[2024-05-14] MEDS: SODIUM CHLORIDE 0.9% 10ML SYR (RAD ONLY) 10 ML IV (13:11)
[2024-05-14] MEDS: IOPAMIDOL-370 (76%);100ML BOTTLE 75 ML IV (13:11)
[2024-05-14] MEDS: 0.9 % SODIUM CHLORIDE 50 ML VIAL IV (13:11)
[2024-05-14 13:30] VITALS: BP 121/74; PULSE 69; RESP 17; O2SAT 100
[2024-05-14 14:00] VITALS: BP 115/71; PULSE 70; RESP 15; O2SAT 100
[2024-05-14 15:00] VITALS: BP 132/88; PULSE 78; RESP 17; TEMP 36.7; O2SAT 98
[2024-05-17 03:40] LABS: HIV 1 RNA, Real time PCR <20 copies/mL (.)
[2024-05-17 11:15] LABS: HBsAg Screen Negative (Negative); HCV Ab Reactive (Non Reactive); Hep A Ab, IGM Negative (Negative); Hep B Core Ab, IgM Negative (Negative)
[2024-05-22 08:10] LABS: PDF: SCANNED IMAGE
== END 2024-05-14 15:01 | disposition home or self-care (01) ==
PROVIDERS: Emergency Provider Emergency Medicine
DX: R00.2 Palpitations (principal); E05.90 Thyrotoxicosis, unspecified without thyrotoxic crisis or storm; R06.02 Shortness of breath; R11.0 Nausea; R00.1 Bradycardia, unspecified; R94.5 Abnormal results of liver function studies; B19.20 Unspecified viral hepatitis C without hepatic coma; F17.210 Nicotine dependence, cigarettes, uncomplicated; F31.9 Bipolar disorder, unspecified; I10 Essential (primary) hypertension
CPT/HCPCS: 71045; 71275; 74174; 80050; 80053; 80074; 83735; 84436; 84443; 84484; 84702; 85025; 85378; 87522; 87536; 93005; 99285; Q9967

== ENCOUNTER 2024-05-16 07:44 | Outpatient (CLI) | payer MEDICAID, SELFPAY ==
--- NOTE | 2024-05-16 | CA_ITS ---
APPROVED REPORT Exam: Exercise Treadmill Technologist: Adina Moreno, Ht: 5 ft 4 in Wt: 202 lbs BSA: 1.96 m2 HR: 65 bpm BP: 102/59 mmHg Rhythm: NSR Medical History Medical History: HTN, Smoking Medications: Lasix,,,,, Cyclobenzaprine,,,,, Mirtazapine,,,,, TriNTELLIX,,,,, BuPRenorphinE,,,,, Aripiprasole,,,,, Oxcarbatepine,,,,, Nalaxone,,,,, Metorpolol succinate,,,,, Allergies: No known drug allergies Cardiac Risk Factors: HTN, Smoking Stress Test Details Test: Prem HR Resting HR: 86 bpm Max Heart Rate (APMHR): 188 bpm Max HR Achieved: 156 bpm Target HR (85% APMHR): 160 bpm % of APMHR: 83 Recovery HR: 83 bpm HR response to stress: Normal HR response to stress BP Resting BP: 102.0/59 mmHg Max BP: 140/64 mmHg Recovery BP: 107.0/65.0 mmHg BP response to stress: Normal blood pressure response to stress. ECG Resting ECG: NSR Stress EC.[address] depression Arrhythmia: None Clinical Exercise duration: 07:45 min Highest Stage Achieved: Exercise capacity: 10.1 METs Stress ECG Conclusion Max HR approaching target HR (%83 of max HR) Max HR: 156 % of PM: 83% Max BP: 140/64 Mets: 10.1 Test stopped due to: soa No CP Conclusion: Normal ST response to exercise Normal GXT to HR achieved (83% of PM) GXT only (no imaging) Test Summary REST . . . . . . . Sitting REST 02:54 0.0 0.0 86 . 102/ 59 . . Stage 1 01:00 10.0 1.7 108 . . . . Stage 1 02:00 10.0 1.7 116 . . . . Stage 1 03:00 10.0 1.7 121 . 134/ 68 . . Stage 2 01:00 12.0 2.5 127 . . . . Stage 2 02:00 12.0 2.5 137 . . . . Stage 2 03:00 12.0 2.5 138 . 140/ 64 . . Stage 3 01:00 14.0 3.4 146 . . . . Stage 3 01:45 14.0 3.4 153 . . . Stop exercise at 07:45 RECOVERY 01:00 0.0 0.0 118 . . . . RECOVERY 02:00 0.0 0.0 99 . 129/ 62 . . RECOVERY 03:00 0.0 0.0 89 . 118/ 63 . . RECOVERY 04:00 0.0 0.0 89 . 118/ 63 . . RECOVERY 05:00 0.0 0.0 83 . 107/ 65 . . RECOVERY 05:25 0.0 0.0 86 . 107/ 65 . . Electronically signed by : Sharon Reilly MD 05/22/2024 13:28:00
== END 2024-05-16 23:59 | disposition home or self-care (01) ==
LOC: RT 07:45
PROVIDERS: Visit Provider Nurse Practitioner Family
DX: R07.89 Other chest pain (principal); R55 Syncope and collapse
CPT/HCPCS: 93017; 93018

== ENCOUNTER 2024-06-03 07:32 | Outpatient (CLI) | payer MEDICAID, SELFPAY ==
--- NOTE | 2024-06-03 07:32 | CT_ITS ---
APPROVED REPORT Dynamics Ax Consultant: CLINICAL INDICATION Chest Pain TECHNIQUE Image Acquisition: A 128 slice MDCT scanner (LearnSomething[employer] View) was used for data acquisition. A noncontrast coronary calcium scan was performed. A CT attenuation threshold of 130 Hounsfield units (HU) was used for the detection of calcium in contiguous voxels of 1 sq mm in area to be counted as individual lesions. Bolus tracking in the ascending aorta with a threshold of 180 HU was performed. Immediately afterwards, ECG synchronized cardiac CT was then performed from the cardiac base to apex using retrospective gating with ECG tube current modulation. A total of 85 mL of Isovue 370 mg/mL contrast medium was administered at 5 mL/sec followed by a saline flush using a biphasic injection protocol. A tube voltage of 120 KVp was used. The patient received the following medications prior to the cardiac CT. 75 mg of oral metoprolol 15 mg of oral ivabradine 0.8 mg of sublingual nitroglycerin The average heart rate at the time of acquisition was 59 bpm and regular. Image Reconstruction Transaxial images were reconstructed at 0.67 mm slide thickness. Data was reviewed interactively on an advanced workstation capable of 2 and 3-dimensional displays in all conventional reconstruction formats, including multiplanar reformations, maximum intensity projections, curved multiplanar reformations, and volume rendered reconstructions. When applicable, selected routine images describing the relevant coronary anatomy and pathology were saved and sent to PACS. Complications None Technical Quality Overall image quality was good. Coronary artery opacification was adequate. Total DLP (Dose-Length Product) is 1008.1 mGy-cm. The reported value represents the total of one or more individual components during the CT acquisition of this date and at this time, and as such, the same value may appear in more than one CT report depending on the interpreting/reporting physicians. COMPARISON None FINDINGS CT Coronary Calcium Scoring LMA (Left Main Artery) = 0 LAD (Left Anterior Descending) = 0 LCX (Left Coronary Circumflex) = 0 RCA (Right Coronary Artery) = 0 Total Calcium Score = 0 using the AJ-130 method. The interpretation of the calcium heart score is based on the following continuum*: 0 = no calcified plaque detected (risk of coronary artery disease is very low ??? less than 5%) 1-10 = calcium detected in extremely minimal levels (risk of coronary diseases is still low ??? less than 10%) 11-100 = mild levels of plaque detected with certainty (mild or minimal narrowing of heart arteries is likely) 101-400 = definite,at least moderate levels of plaque detected (relatively high risk of a heart attack within 3-5 years) >401-999 = extensive levels of plaque detected (high risk of heart attack, high levels of vascular disease are present, high likelihood of at least one significant coronary narrowing) *The calcium heart score quantifies the burden of coronary calcification/plaque in the coronary arteries. The calcium heart score is not able to evaluate the presence or burden of non-calcified (i.e. soft) plaque. There is no identifiable calcification in the aortic valve, mitral annulus or mitral valve, pericardium, or myocardium. Coronary CT Angiography The coronary arterial system is right dominant. Quantitative Stenosis Grading: Left Main (LM): The left main originates normally from the left sinus of Valsalva. The LM bifurcates into the left anterior descending artery and left circumflex artery. The LM is patent with no evidence of atherosclerosis. Left Anterior Descending (LAD) and Diagonal Branches: The LAD gives off 2 diagonal branch(es). The LAD and its branches are patent with no evidence of atherosclerosis. There is no evidence of LAD-myocardial bridge. Left Circumflex (LCX) and Obtuse Marginals (OM): The LCX gives off 1 Obtuse Marginal (OM) branch(es). The LCX and its branches are patent with no evidence of atherosclerosis. Right Coronary Artery (RCA): The RCA originates normally from the right sinus of Valsalva. The RCA gives off a posterior descending artery (PDA) and posterolateral (PL) branches. The RCA and its branches are patent with no evidence of atherosclerosis. Non-Coronary Cardiac Findings: Analysis of the left ventricular (LV) structure and function was performed after 3-D reconstruction of the LV from axial images, with user-corrected automatic contouring for assessment of LV volumes and user-defined reconstruction from oblique planes for measurement of 3-D cardiac structure and function. -The left ventricle systolic function is normal. -There is no left atrial appendage filling defect. Two right pulmonary veins and two left pulmonary veins drain normally into the left atrium. -No pericardial thickening or calcification. -Central and branch pulmonary arteries in the [id number] are unremarkable. -Thoracic aorta within the visualized thoracic aortic-branches in the [id number] is unremarkable. Extracardiac Structures No significant extra-cardiac findings. Note, however, that this study is focused on the cardiac findings. IMPRESSION -No coronary calcification with an Agatston score = 0 using the AJ-130 method. -No evidence of significant flow-limiting atherosclerosis of the coronary arteries. -No evidence of coronary anomalies or myocardial bridges. -CAD-RADS 0. Management recommendations per ACC/AHA guidelines*, as clinically appropriate. *Recommendations: CAD RADS 0: Reassurance. Consider non-atherosclerotic causes of chest pain. CAD RADS 1: Consider non-atherosclerotic causes of chest pain. Consider preventive therapy and risk factor modification. CAD RADS 2: Consider non-atherosclerotic causes of chest pain. Consider preventive therapy and risk factor modification, particularly for patients with nonobstructive plaque in multiple segments. CAD RADS 3: Consider further functional testing. Consider symptom-guided anti-ischemic and preventive pharmacotherapy as well as risk factor modification per published guideline statements. CAD RADS 4A: Consider further functional testing or invasive coronary angiography with revascularization per published guideline statements. Consider symptom-guided anti-ischemic and preventive pharmacotherapy as well as risk factor modification per published guideline statements. CAD RADS 4B: Invasive coronary angiography recommended with revascularization per published guideline statements. Consider symptom-guided anti-ischemic and preventive pharmacotherapy as well as risk factor modification per published guideline statements. CAD RADS 5: Consider invasive angiography and/or viability assessment with revascularization per published guideline statements. Consider symptom-guided anti-ischemic and preventive pharmacotherapy as well as risk factor modification per published guideline statements. CRITICAL RESULT None COMMUNICATION Per this written report The coronary and cardiac findings of this CCTA were reviewed, reported, and signed by Chito Reilly MD (Thermograph Operator) Conclusion Electronically signed by : Sharon Reilly MD 06/04/2024 11:58:14
[2024-06-03] MEDS: METOPROLOL TARTRATE 50MG TABLET *IVABRADINE+METOPROLOL REGIMINE 50 MG PO (08:07)
[2024-06-03] MEDS: IVABRADINE HCL 7.5MG TABLET *IVABRADINE+METOPROLOL REGIMINE 15 MG PO (08:07)
[2024-06-03 08:08] VITALS: BP 139/63; PULSE 76; RESP 18; TEMP 36.1; O2SAT 97
[2024-06-03 08:21] LABS: HCG Qualitative, Serum Negative (Negative)
[2024-06-03 08:37] VITALS: BP 129/70; PULSE 59; RESP 16; TEMP 36.2; O2SAT 100
[2024-06-03] MEDS: NITROGLYCERIN 0.4MG SL TABLET 0.8 MG SL (08:37)
[2024-06-03 08:39] VITALS: BP 109/66; PULSE 61; RESP 18; O2SAT 100
[2024-06-03 08:42] VITALS: BP 114/60; PULSE 60; RESP 18; O2SAT 100
[2024-06-03] MEDS: 0.9 % SODIUM CHLORIDE 50 ML VIAL IV (08:43)
[2024-06-03] MEDS: SODIUM CHLORIDE 0.9% 10ML SYR (RAD ONLY) 10 ML IV (08:43)
[2024-06-03] MEDS: IOPAMIDOL-370 (76%);100ML BOTTLE 85 ML IV (08:43)
[2024-06-03 08:54] VITALS: BP 104/63; PULSE 53; RESP 18; O2SAT 98
== END 2024-06-03 08:54 | disposition home or self-care (01) ==
PROVIDERS: PCP Nurse Practitioner Family; Visit Provider Nurse Practitioner Family
DX: R55 Syncope and collapse (principal); R07.89 Other chest pain; R00.2 Palpitations
CPT/HCPCS: 75574; 84703; Q9967

== ENCOUNTER 2024-07-23 19:12 | Emergency (ER) | payer MEDICAID, SELFPAY ==
--- NOTE | 2024-07-23 19:24 | XR_ITS ---
PROCEDURE INFORMATION: Exam: XR Chest Exam date and time: 07/23/2024 7:18 PM Age: 34 years old Clinical indication: Cough and other: Pain TECHNIQUE: Imaging protocol: Radiologic exam of the chest. Views: 2 views. COMPARISON: CT ANGIO CHEST PE PROTOCOL 14/05/2024 13:01 FINDINGS: Lungs: Unremarkable. No consolidation. Pleural spaces: Unremarkable. No pleural effusion. No pneumothorax. Heart/Mediastinum: Unremarkable. No cardiomegaly. Bones/joints: Unremarkable. IMPRESSION: No acute findings.
[2024-07-23 19:25] VITALS: BP 121/70; PULSE 86; RESP 20; TEMP 36.4; O2SAT 100; BMI 37.8
--- NOTE | 2024-07-23 19:27 | ED_ITS ---
Discharge Plan Disposition Patient Disposition: Home, Self-Care Condition: Good Prescriptions Prescriptions: New sulfamethoxazole-trimethoprim [Bactrim DS] 800-160 mg Tablet 1 tab PO BID 10 Days Qty: 20 0RF cephalexin 500 mg capsule 500 mg PO QID Qty: 40 0RF mupirocin 2 % ointment 1 applic topical TID 7 Days Qty: 15 0RF tjcywtvqcrjgwzd-czgzehoxr-ZX [Bromfed DM] 2-30-10 mg/5 mL Syrup 5 ml PO Q6H PRN (Reason: Cough) Qty: 240 0RF No Action metoprolol succinate 100 mg tablet extended release 24 hr 100 mg PO DAILY Patient Comments: TAKE 1 TABLET BY MOUTH ONCE DAILY oxcarbazepine 300 mg tablet 300 mg PO DAILY amitriptyline 25 mg tablet 25 mg PO HS Patient Comments: TAKE 1 TABLET BY MOUTH ONCE DAILY AT BEDTIME mirtazapine 30 mg tablet 30 mg PO HS Patient Comments: TAKE 1 TABLET BY MOUTH ONCE DAILY AT BEDTIME furosemide 20 mg tablet 20 mg PO DAILY Patient Comments: TAKE 1 TABLET BY MOUTH ONCE DAILY NEEDED FOR EDEMA aripiprazole 10 mg tablet 10 mg PO DAILY Patient Comments: TAKE 1 TABLET BY MOUTH ONCE DAILY sofosbuvir-velpatasvir 400-100 mg tablet 1 tab PO DAILY Patient Comments: TAKE ONE TABLET BY MOUTH EVERY DAY Caplyta 42 mg capsule 42 mg PO DAILY Patient Comments: TAKE 1 CAPSULE BY MOUTH ONCE DAILY Referrals Follow up/Referrals: Provider,Referral, MD [Primary Care Provider] - See instructions Activity Restrictions/Add. Instructions Additional Instructions/Restrictions: Drink plenty of fluids. Take tylenol or ibuprofen for pain or fever. Take the medications as directed. Follow up with your regular doctor. GO TO THE ER FOR ANY WORSENING SYMPTOMS Keep the affected area clean and dry. Follow up with your regular doctor. Take the antibiotics as directed and apply the topical antibiotics as directed. Apply warm wet compresses to the affected area three or four times per day. GO TO THE ER FOR ANY WORSENING SYMPTOMS Clinical Impressions Clinical Impression: Acute bronchitis, Abscess of skin Instructions Patient Instructions: Acute Bronchitis, Boil Print Language Print Language: Belgian Discharge ED Provider: Basim Francisco [facility] HPI General Stated complaint: Body aches,staph in left leg Time Seen by Provider: 10/29/24 19:27 History of Present Illness Provider Complaint: she states that she has had a cough with greenish sputum and sinus congestion since she had covid-19 2 weeks. She also has a skin abscess on her left groin that has been present for the past 2 weeks. She was say by her pcp in [place] when it first started. She states that she took bactrim and it did seem to get better, but since finished the antibiotics her symptoms have returned. Related Data Home Medications ?Medication ?Instructions ?Recorded ?Confirmed amitriptyline 25 mg tablet 25 mg PO HS 07/23/24 07/23/24 aripiprazole 10 mg tablet 10 mg PO DAILY 07/23/24 07/23/24 furosemide 20 mg tablet 20 mg PO DAILY 07/23/24 07/23/24 lumateperone 42 mg capsule 42 mg PO DAILY 07/23/24 07/23/24 (Caplyta) metoprolol succinate 100 mg 100 mg PO DAILY 07/23/24 07/23/24 tablet,extended release 24 hr mirtazapine 30 mg tablet 30 mg PO HS 07/23/24 07/23/24 oxcarbazepine 300 mg tablet 300 mg PO DAILY 07/23/24 07/23/24 sofosbuvir 400 mg-velpatasvir 100 1 tab PO DAILY 07/23/24 07/23/24 mg tablet Previous Rx's ?Medication ?Instructions ?Recorded pubdllhkxgutvwh-twdyuabkvbsamed-RC 5 ml PO Q6H PRN Cough #240 mL 07/23/24 2 mg-30 mg-10 mg/5 mL oral syrup (Bromfed DM) cephalexin 500 mg capsule 500 mg PO QID #40 caps 07/23/24 mupirocin 2 % topical ointment 1 applic topical TID 7 days #15 07/23/24 grams sulfamethoxazole 800 1 tab PO BID 10 days #20 tabs 07/23/24 mg-trimethoprim 160 mg tablet (Bactrim DS) Allergies Allergy/AdvReac Type Severity Reaction Status Date / Time No Known Allergies Allergy Verified 07/23/24 19:29 [facility] Disclaimer: The information contained in this section may have been updated after the patient was seen, as this information can be updated by other users. Medical History (Updated 07/23/24 @ 19:52 by Basim Francisco APRN) Syncope HTN (hypertension) Bipolar 1 disorder Surgical History History of tubal ligation History of appendectomy Family History (Updated 06/03/24 @ 08:01 by Roxy Ratliff, RN) Other Family history of cancer Social History (Updated 06/03/24 @ 08:00 by Roxy Ratliff RN) Smoking Status: Current every day smoker alcohol intake: never substance use type: marijuana, crack/cocaine and IV drugs current occupational status: employed Travel in the last 8 weeks: None ROS Obtained: Yes All systems reviewed & no additional complaints except as documented Constitutional Constitutional: Denies chills and Denies fever(s) Eyes Eyes: Denies eye discharge ENT Ears, Nose, Mouth, and Throat: Denies dizziness, Denies otalgia and Denies sore throat Cardiovascular Cardiovascular: Denies chest pain Respiratory Respiratory: Denies shortness of breath, Denies chest congestion, Denies cough, Denies stridor and Denies wheezing Gastrointestinal Gastrointestingal: Denies nausea or vomiting Musculoskeletal Musculoskeletal: Reports system reviewed and no additional complaints, except as documented and Denies arthralgias Integumentary/Breasts Skin/Breast: Reports as per HPI Neurologic Neurologic: Denies dizziness and Denies paresthesias Allergic/Immunologic Allergic/Immunologic: Denies wheezing Physical Exam General General appearance: alert and in no apparent distress Head Head exam: atraumatic, normocephalic and normal inspection Eye Eye exam: Present normal appearance, PERRL and EOMI ENT ENT exam: Present normal exam, normal oropharynx, mucous membranes moist, TM's normal bilaterally and normal external ear exam Neck Neck exam: Present normal inspection, full ROM and trachea midline; Absent meningismus or lymphadenopathy Chest Chest inspection: Present normal inspection and symmetric chest wall rise; Absent tenderness Respiratory Respiratory exam: Present normal lung sounds bilaterally; Absent respiratory dis tress Cardiovascular Cardiovascular exam: Present regular rate and normal rhythm; Absent JVD Abdominal Exam Abdominal exam: Present soft and normal bowel sounds; Absent distention, tenderness or guarding Extremities Exam Extremities exam: Present normal inspection, full ROM and normal capillary refill; Absent calf tenderness Back Exam Back exam: Present normal inspection; Absent tenderness Neurological Exam Neurological exam: Present alert and oriented X3 Psychiatric Psychiatric exam: Present normal affect and normal mood Skin Skin exam: Present warm, dry, intact and normal color Lymphatic Lymphatic Findings: no adenopathy Medical Decision Making Medical Records Medical records reviewed: No I reviewed the patient's medical records. Screening: Per USPSTF and CDC recommendations, given the prevalence of disease in our region, it is our hospital?s policy to screen for HIV and viral Hepatitis for all patients aged 18 and over and those with ongoing risk factors. Shayan Inquiry Pt receiving controlled substance: No Lab Data Lab results reviewed: Yes I reviewed the patient's lab results. Orders (Tests/Meds): ORDERS Category Date Time Status Chest XR 2 view (NOT portable) [XR chest 2V] Stat Exams 07/23/24 19:24 Ordered
[2024-07-23 19:40] VITALS: BP 121/70; PULSE 86; RESP 20; TEMP 36.4; O2SAT 100
[2024-07-23] MEDS: SULFA/TRIMETHOPRIM 1 TABLET 1 EACH PO (19:52)
[2024-07-23] MEDS: cephALEXin 500MG CAPSULE 500 MG PO (19:52)
--- NOTE | 2024-07-29 16:31 | PC.NURSE ---
PATIENT'S WOUND CULTURE REVIEWED BY Rylee BROWN APRN, WHO SPOKE WITH PATIENT AND DISCUSSED FOLLOWING UP WITH PCP [facility] FOR POSSIBLE NEED OF IV ANTIBIOTICS. PATIENT VERBALIZED UNDERSTANDING AND STATES SHE DOES NOT CURRENTLY HAVE A PCP, BUT WILL FIND ONE AND FOLLOW-UP.
== END 2024-07-23 19:55 | disposition home or self-care (01) ==
PROVIDERS: Emergency Provider Nurse Practitioner Family
DX: J20.9 Acute bronchitis, unspecified (principal); L02.214 Cutaneous abscess of groin
CPT/HCPCS: 71046; 87070; 87077; 87186; 87205; 99213; G0381

== ENCOUNTER 2024-08-03 10:44 | Outpatient (CLI) | payer MEDICAID, SELFPAY ==
[2024-08-03 10:44] VITALS: BP 116/63; PULSE 63; RESP 16; TEMP 36.6; O2SAT 100
[2024-08-03] MEDS: DAPTOmycin 500 MG in 0.9 % SODIUM CHLORIDE 50 ML 100 MG IV (11:54)
== END 2024-08-03 11:54 | disposition home or self-care (01) ==
LOC: INF 10:46
PROVIDERS: PCP Nurse Practitioner Family; Visit Provider Nurse Practitioner Family
DX: L02.91 Cutaneous abscess, unspecified (principal)
CPT/HCPCS: 96365; G0463; J0878

== ENCOUNTER 2024-08-04 15:51 | Outpatient (CLI) | payer MEDICAID, SELFPAY ==
[2024-08-04 15:51] VITALS: BP 109/53; PULSE 60; RESP 16; O2SAT 100
[2024-08-04] MEDS: DAPTOmycin 500 MG in 0.9 % SODIUM CHLORIDE 50 ML 100 MG IV (16:18)
[2024-08-04 16:26] VITALS: BMI 34.3
== END 2024-08-04 16:56 | disposition home or self-care (01) ==
LOC: INF 15:52
PROVIDERS: PCP Nurse Practitioner Family; Visit Provider Nurse Practitioner Family
DX: L02.91 Cutaneous abscess, unspecified (principal)
CPT/HCPCS: 96365; G0463; J0878

== ENCOUNTER 2024-08-05 10:34 | Outpatient (CLI) | payer MEDICAID, SELFPAY ==
[2024-08-05 10:49] VITALS: BMI 34.3
[2024-08-05 11:09] LABS: Blood Urea Nitrogen 10 mg/dl (7-17); Calcium 9.3 mg/dl (8.4-10.2); Carbon Dioxide 29 mmol/L (22.0-30.0); Chloride 108 mmol/L (98-107); Creatine Kinase 107 U/L (30-135); Creatinine Clearance Estimated 165 mL/min (50-200); Estimated Glomerular Filt Rate 97 ml/min (>60); GFR (African American) 117 ML/MIN (>60); Glucose 79 mg/dl (74-100); Sodium 141 mmol/L (136-145)
[2024-08-05 11:33] VITALS: BP 108/57; PULSE 67; RESP 18; O2SAT 95
[2024-08-05] MEDS: DAPTOmycin 500 MG in 0.9 % SODIUM CHLORIDE 50 ML 100 MG IV (11:33)
[2024-08-05] MEDS: SODIUM CHLORIDE 0.9% 50ML BAG 50 ML IV (11:33)
[2024-08-05 12:09] VITALS: BP 107/63; PULSE 64; RESP 18; O2SAT 95
== END 2024-08-05 12:09 | disposition home or self-care (01) ==
LOC: INF 10:36
PROVIDERS: PCP Nurse Practitioner Family; Visit Provider Nurse Practitioner Family
DX: L02.214 Cutaneous abscess of groin (principal)
CPT/HCPCS: 80048; 82550; 96365; J0878

== ENCOUNTER 2024-08-06 10:46 | Outpatient (CLI) | payer MEDICAID, SELFPAY ==
[2024-08-06] MEDS: SODIUM CHLORIDE 0.9% 10ML FLUSH SYRINGE 10 ML IV (11:07)
[2024-08-06 11:08] VITALS: BP 114/64; PULSE 62; RESP 16; TEMP 36.7; O2SAT 98
[2024-08-06] MEDS: DAPTOmycin 500 MG in 0.9 % SODIUM CHLORIDE 50 ML 100 MG IV (11:08)
[2024-08-06] MEDS: SODIUM CHLORIDE 0.9% 50ML BAG 50 ML IV (11:08)
[2024-08-06 12:00] VITALS: BP 106/56; PULSE 54; RESP 16; TEMP 36.7; O2SAT 99
== END 2024-08-06 12:00 | disposition home or self-care (01) ==
LOC: INF 10:46
PROVIDERS: PCP Nurse Practitioner Family; Visit Provider Nurse Practitioner Family
DX: L02.91 Cutaneous abscess, unspecified (principal)
CPT/HCPCS: 96365; J0878

== ENCOUNTER 2024-08-07 10:34 | Outpatient (CLI) | payer MEDICAID, SELFPAY ==
--- OUTSIDE RECORDS SUMMARY | 2024-08-07 10:35 | XMS_ITS | Clinical Summary ---
Author Organization Healthcare Address [address] [place] [address] Care Team Providers Care Assembler Arranger Name Role Phone Lc Hancock MD Primary Care Provider [phone] Allergies No known active allergies Medications No known medications Active Problems No known active problems Social History Tobacco Use Types Packs/Day Years Used Date Smoking Tobacco: Never Assessed Comments Unknown Sex and Gender Information Value Date Recorded Sex Assigned at Not on file Legal Sex Female 8:18 PM EDT Gender Identity Not on file Sexual Orientation Not on file Last Filed Vital Signs Vital Sign Reading Time Taken Comments Blood Pressure 111/74 12/09/2023 9:37 PM EDT Pulse 83 12/09/2023 9:37 PM EDT Temperature 36.7 ??C (98 ??F) 12/09/2023 9:37 PM EDT Respiratory Rate 18 12/09/2023 9:37 PM EDT Oxygen Saturation 100% 12/09/2023 9:37 PM EDT Inhaled Oxygen Concentration - - Weight 81.6 kg (180 lb) 12/09/2023 9:37 PM EDT Height 162.6 cm (5' 4 ) 12/09/2023 9:37 PM EDT Body Mass Index 30.9 12/09/2023 9:37 PM EDT Plan of Treatment Health Maintenance Due Date Last Done Comments [facility]-Depression Screening 1992 [facility]-/Child/Adol SDOH Screenings 1992 [facility]-Obesity Intervention 1998 [facility]-Varicella Vaccines (2 of 2 - 2-dose childhood series) 09/06/2004 06/14/2004 [facility]- SDOH Screenings 2010 [facility]-Adult SDOH Screenings 2010 [facility]-HPV Vaccines (2 - 3-dose series) 02/10/2011 01/13/2011 [facility]-Pap Smear 2013 [facility]-Cervical Cancer Screening 2022 [facility]-HPV/Cotest 2022 [id number] Vaccine (3 - 2022-24 season) 2024 02/24/2021, 01/27/2021 [facility]-Influenza Vaccine (#1) 2024 [facility]-DTaP,Tdap,and Td Vaccine s (3 - Td or Tdap) 02/01/2027 02/01/2017, 06/14/2004, 05/10/1996 [facility]-Zoster Vaccines (1 of 2) 2042 06/14/2004 [facility]-RSV Vaccine: 60+ Years o r (1 - 1-dose 60+ series) 2052 [facility]-Hepatitis B Vaccines Completed 004, 02/11/1999, 12/17/1998 [facility]-HIV Screening Completed 11/21/2022, 11/21/2022 [facility]-Hepatitis C Screening Completed 11/21/2022 [facility]-HIB Vaccines Aged Out No longer e ligible based on patient's age to complete this topic [facility]-Hepatitis A Vaccines Aged Out No longer eligible based on patient's age to complete this topic [facility]-IPV Vaccines Aged Out No longer e ligible based on patient's age to complete this topic [facility]-Pneumococcal Vaccine: Pediatrics (0 to 5 Years) and At-Risk Patients (6 to 64 Years) Aged Out No longer eligible b ased on patient's age to complete this topic [facility]-Rotavirus Vaccines Aged Out No lo nger eligible based on patient's age to complete this topic Procedures Procedure Name Priority Date/Time Associated Diagnosis Comments HEPATITIS C ANTIBODY - ED W/REFLEX TO HCV QUANT PCR STAT 11/21/2022 9:27 PM EST HIV 1/2 ANTIBODY/ANTIGEN SCREEN WITH REFLEX TO HIV I/II DIFFERENTIATION STAT 11/21/2022 9:27 PM EST from Last 3 Months or Most Recently Relevant to Health Maintenance Results * HIV 1 & 2 Antibody/Antigen Screen (11/21/2022 9:27 PM EST) HIV 1 & 2 Antibody/Antigen Screen Non Reactive Non Reactive 11/21/2022 10:28 PM EST [facility] Comment:Screening for HIV 1 & 2 antibodies, and P24 antigen is NONREACTIVE. No confirmatory testing is required. Blood Venous blood specimen / Unknown Venipuncture / Unknown 11/21/2022 9:27 PM EST 11/21/2022 9:52 PM EST Trent Riddle MD LAB BLOOD ORDERABLES Final Res ult [facility] [address] [place] [address] * (ABNORMAL) Hepatitis C Antibody - ED (11/21/2022 9:27 PM EST) Pathologist [facility] Hepatitis C Antibody Positive(A ) Negative 11/21/2022 10:31 PM EST [facility] Blood Venous blood specimen / Unknown Venipuncture / Unknown 11/21/2022 9:27 PM EST 11/21/2022 9:52 PM EST Trent Riddle MD LAB BLOOD ORDERABLES Final Res [facility] [address] [place] [address] from Last 3 Months or Most Recently Relevant to Health Maintenance Insurance MEDICAID Care Teams Assembler Arranger Relationship Specialty Start Date End Date Lc Hancock MD [address] [id number] PCP - General 02/05/21
--- OUTSIDE RECORDS SUMMARY | 2024-08-07 10:35 | XMS_ITS | Encounter Summary ---
Author Organization [facility] Address [address] [place] [address] Care Team Providers Care Development Mechanic Name Role Phone Provider, No Known Primary Care Provider Unavail able Reason for Visit * Cardiac (Routine) - Closed Specialty Diagnoses / Procedures Referred By Contac t Referred To Contact Diagnoses SVT (supraventricular tachycardia) Palpitations Procedures Holter Monitor - 72 Hour Up To 15 Days Diana Holland APRN [address] [place] [address] Phone: tel: fax: [employer] [facility] [address] [facility] [place] [address] Phone: tel: Referral ID Status Reason Start Date Expiration Date Visits Re quested Visits Authorized [id number] Closed 05/15/2023 05/14/2024 1 1 Encounter Details Date Type Department Care Team (Late st Contact Info) Description 05/15/2023 1:30 PM EDT Ancillary Procedure [facility] [address] [id number] Social History Tobacco Use Types Packs/Day Years Used Date Smoking Tobacco: Every Day Cigarettes 1 15 Passive Smoke Exposure: Current Smokeless Tobacco: Never Alcohol Use Standard Drinks/Week Comments Yes 0 (1 standard drink = 0.6 oz pur e alcohol) occ Comments Unknown Sex and Gender Information Value Date Recorded Sex Assigned at Not on file Legal Sex Female 7:31 AM EDT Gender Identity Not on file Sexual Orientation Not on file documented as of this encounter Plan of Treatment Not on file documented as of this encounter Procedures Procedure Name Priority Date/Time Associated Diagnosis Comments HOLTER MONITOR >48HRS UP TO 7 DAYS HOOK-UP & INTERP Routine 05/15/2023 4:03 PM EDT SVT (supraventricular tachycardia) Palpitations documented in this encounter Results * HOLTER MONITOR >48HRS UP TO 7 DAYS HOOK-UP & INTERP (05/15/2023 4:03 PM EDT) Anatomical Region Laterality Modality Ultrasound Narrative 06/05/2023 5:07 PM EDT ?A relatively benign monitor study. ?Nonsustained SVT. ??See raw data for further information. Study Description Monitor placed on patient by Venancio Sandra MA at 13:30 EDT. Instructions were provided to patient on use of holter monitor and duration of monitoring. The monitor was scanned on 05/31/2023. The patient was monitored for 6 days 11 hours and 59 minutes. Indications for this exam include Supraventricular tachycardia. Total beats: [id number]. Average HR: 86. Min HR: 46. Max HR: 179. Study Impressions A relatively benign monitor study. Nonsustained SVT. See raw data for further information. us Diana Holland APRN [facility] Final Result documented in this encounter Visit Diagnoses Not on filedocumented in this encounter Care Teams Development Mechanic Relationship Specialty Start Date End Date Provider, [place] [address] PCP - General 05/15/23 documented as of this encounter
--- OUTSIDE RECORDS SUMMARY | 2024-08-07 10:35 | XMS_ITS | Encounter Summary ---
Author Organization Healthcare Address [address] [place] [address] Care Team Providers Care Universal Grinder Tool Name Role Phone Lc Hancock MD Primary Care Provider [phone] Encounter Details Date Type Department Care Team (Latest Contact Info) Description 12/09/2023 Travel Social History Tobacco Use Types Packs/Day Years Used Date Smoking Tobacco: Never Assessed Comments Unknown Sex and Gender Information Value Date Recorded Sex Assigned at Not on file Legal Sex Female 8:18 PM EDT Gender Identity Not on file Sexual Orientation Not on file documented as of this encounter Plan of Treatment Not on file documented as of this encounter Visit Diagnoses Not on filedocumented in this encounter Care Teams Universal Grinder Tool Relationship Specialty Start Date End Date Lc Hancock MD [address] [place], [place] [id number] PCP - General 02/05/21 documented as of this encounter
--- OUTSIDE RECORDS SUMMARY | 2024-08-07 10:35 | XMS_ITS | Clinical Summary ---
Author Organization [facility] Address [address] [place] [address] Care Team Providers Care Hardware Sales Assistant Name Role Phone Provider, No Known Primary Care Provider Unavail able Allergies No known active allergies Medications risperiDONE (risperDAL) 1 MG tablet Take 1 tablet by mouth Every 12 (Twelve) Hours. 05/26/2023 Active QUEtiapine (SEROquel) 50 MG tablet Take 1 tablet by mouth every night at bedtime. 06/07/2023 Active atorvastatin (LIPITOR) 10 MG tablet TAKE ONE TABLET BY MOUTH DAILY AT BEDTIME FOR HLD 05/26/2023 Active Austedo 6 MG tablet TAKE 1 tablet with food Orally Once a day FOR 30 day(s) 06/08/2023 Active Trintellix 5 MG tablet tablet Take 1 tablet by mouth Daily. 06/07/2023 Active ibuprofen (ADVIL,MOTRIN) 800 MG tablet Take 1 tablet by mouth 3 times a day. 06/09/2023 Active propranolol (INDERAL) 10 MG tabletIndicatio ns:SVT (supraventricul ar tachycardia) Take 1 tablet by mouth 2 (Two) Times a Day. 60 tablet 3 06/15/2023 Active Active Problems Problem Noted Date Diagnosed Date Other hyperlipidemia 06/15/2023 Assessment & Plan (06/15/2023 3:55 PM EDT): Lipid panel from 05/25/2023 reviewed, triglycerides 122, cholesterol 262, HDL 42, LDL 196. -Continue atorvastatin at current dose. SVT (supraventricular tachycardia) 05/15/2023 Assessment & Plan (06/15/2023 3:56 PM EDT): Holter monitor from 05/15/2023 revealed a relatively benign monitor study. Nonsustained SVT noted. Patient has been out of propanolol and is requesting a refill. - Propanolol 10 mg twice daily. Assessment & Plan (05/15/2023 9:27 PM EDT): Patient reports an increase in palpitations. History of SVT - 7-day Holter monitor further evaluation management - We will likely start beta-mercedes at follow-up visit once monitor results reviewed. 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 Patient reportedly has had a full cardiac work-up in the last several years, including a left heart cath at [facility]. Palpitations 05/15/2023 Screening for lipid disorders 05/15/2023 Assessment & Plan (05/15/2023 9:27 PM EDT): She reports that she was previously taking a cholesterol medication and has not had labs checked in a while. - Fasting lipid panel for further evaluation and management. Immunizations Name Administration Dates Next Due HPV Quadrivalent 01/13/2011 Hep B, Adolescent or Pediatric 06/14/2004,1998,12/17/1998 MMR 05/10/1996 Pneumococcal Conjugate 20-Valent (PCV20) 023 TD Preservative Free (Tenivac) 05/10/1996 Td (TDVAX) 06/14/2004 Tdap 02/01/2017 Varicella 06/14/2004 Family History Medical History Relation Name Comments No Known Problems Father No Known Problems Mother Relation Name Status Comments Father Mother Social History Tobacco Use Types Packs/Day Years Used Date Smoking Tobacco: Every Day Cigarettes 1 15 Passive Smoke Exposure: Current Smokeless Tobacco: Never Tobacco Cessation:Ready to Q uit: Not Asked; Counseling Given: Not Answered Alcohol Use Standard Drinks/Week Comments Yes 0 (1 standard drink = 0.6 oz pur e alcohol) occ Abuse Screen Answer Date Recorded Unsafe at Home or Work/School Not on file Feels Threatened by Someone? Not on file 08/2023 Does Anyone Keep You from Co ntacting Others or Doint Things Outside the Home? Not on file 07/06/2023 Physical Sign of Abuse Present Not on file 1 Housing Stability Answer Date Recorded Current Living Arrangements Not on file 06/25 Potentially Unsafe Housing Conditions Not on beth e 07/06/2023 Family and Community Support Answer Nelson e Recorded Help with Day-to-Day Activities Not on file 07/06/2023 Lonely or Isolated Not on file 07/06/2023 Employment Answer Date Recorded Do you want help finding or keeping work or a anil b? Not on file 07/06/2023 Disabilities Answer Date Recorded Concentrating, Remembering, or Making Decisions Difficulty Not on file 07/06/2023 Doing Errands Independently Difficulty Not on fi le 07/06/2023 Education Answer Date Recorded Help with school or training? Not on file Preferred Language Not on file 07/06/2023 Comments Unknown Sex and Gender Information Value Date Recorded Sex Assigned at Not on file Legal Sex Female 7:31 AM EDT Gender Identity Not on file Sexual Orientation Not on file Last Filed Vital Signs Vital Sign Reading Time Taken Comments Blood Pressure 120/72 06/15/2023 1:31 PM EDT Pulse 99 06/15/2023 1:31 PM EDT Temperature - - Respiratory Rate - - Oxygen Saturation 100% 06/15/2023 1:31 PM EDT Inhaled Oxygen Concentration - - Weight 91.2 kg (201 lb) 06/15/2023 1:31 PM EDT Height 162.6 cm (5' 4 ) 06/15/2023 1:31 PM EDT Body Mass Index 34.5 06/15/2023 1:31 PM EDT Plan of Treatment Health Maintenance Due Date Last Done Comments Annual Gynecologic Pelvic an d Breast Exam 1992 ANNUAL PHYSICAL 07/31/2019 PAP SMEAR 07/31/2019 INFLUENZA VACCINE 04/25/2024 LIPID PANEL 05/25/2024 05/25/2023 COVID-19 Vaccine ( - season) 05/26/202410/2020, 01/27/2021 TDAP/TD VACCINES (3 - Td or Tdap) 02/01/2027 02/01/2017, 06/14/2004, 05/10/1996 HEPATITIS C SCREENING Completed 11/21/2022, 023 Pneumococcal Vaccine 0-64 Completed 05/26/2023 Procedures Procedure Name Priority Date/Time Associated Diagnosis Comments LIPID PANEL Routine 05/25/2023 Screening for lipid disorders from Last 3 Months or Most Recently Relevant to Health Maintenance Results * Lipid Panel (05/25/2023) Blood Diana Holland APRN LAB BLOOD ORDERABLES Fin al Result [facility]
[address] [place] [address], from Last 3 Months or Most Recently Relevant to Health Maintenance Insurance [employer] Care Teams Hardware Sales Assistant Relationship Specialty Start Date End Date Provider, No Known [facility] [place] [address] PCP - General 05/15/23
--- OUTSIDE RECORDS SUMMARY | 2024-08-07 10:35 | XMS_ITS | Encounter Summary ---
Author Organization [facility] Address [address] [place] [address] Care Team Providers Care Cooling Tower Technician Name Role Phone Provider, No Known Primary Care Provider Unavail able Reason for Visit * Reason Comments Rapid Heart Rate Encounter Details Date Type Department Care Team (Latest Contact Info) Description 06/15/2023 1:30 PM EDT Office Visit [facility] CARDIOLOGY [address] [id number] Diana Holland APRN [address] [place] [id number] SVT (supraventricular tachycardia) (Primary Dx); Other hyperlipidemia Social History Tobacco Use Types Packs/Day Years [...] on file documented as of this encounter Last Filed Vital Signs Vital Sign Reading [...] Mass Index 34.5 06/15/2023 1:31 PM EDT documented in this encounter Progress Notes * Diana Holland APRN - 06/15/2023 3:56 PM EDTAssociated Problem(s): SVT (supraventricular tachycardia) Holter monitor from 05/15/2023 revealed a relatively benign monitor study. Nonsustained SVT noted. Patient has been out of propanolol and is requesting a refill. - Propanolol 10 mg twice daily. * Diana Holland APRN - 06/15/2023 3:55 PM EDTAssociated Problem(s): Other hyperlipidemia Lipid panel from 05/25/2023 reviewed, triglycerides 122, cholesterol 262, HDL 42, LDL 196. -Continue atorvastatin at current dose. * Diana Holland APRN - 06/15/2023 1:30 PM EDT Images from the original note were not included. [facility] Provider Note Date: 06/15/2023 Name: Arleen Montenegro : 1990 PCP: Provider, No Known Chief Complaint Patient presents with Rapid Heart Rate Subjective History of Present Illness Arleen Montenegro is a 33 y.o. female with medical history of bipolar disorder, anxiety, depression, substance abuse and pseudoseizures who presents today for follow-up on SVT and recent Holter monitor results. Patient reports that she was diagnosed with SVT several years ago. She has noticed an increase in palpitations recently. She was previously followed by a information tech in [place] but recently moved back to [place]. She reports that she was taking a beta-mercedes and a cholesterol medicine [facility] but has been out of that for several months. She also reports shortness of breath and occasional dizziness. She has had a full cardiac work-up in the past several years, including a left heart cath at [facility] that was reportedly normal. Holter monitor from 05/15/2023 revealed a relatively benign monitor study. Nonsustained SVT noted. Patient has been out of propanolol and is requesting a refill. Lipid panel from 05/25/2023 reviewed, triglycerides 122, cholesterol 262, HDL 42, LDL 196. She was recently started on atorvastatin 10 mg by another provider. She denies any new symptoms or concerns today. Cardiac history 1. SVT Echocardiogram 09/20/2019-EF 60%. Trace tricuspid regurgitation. RVSP is normal. Holter monitor 05/15/2023-relatively benign monitor study. Nonsustained SVT. 5 events of SVT, longest event was 6 beats. Fastest event was 121 bpm. No Known Allergies Current Outpatient Medications: atorvastatin (LIPITOR) 10 MG tablet, TAKE ONE TABLET BY MOUTH DAILY AT BEDTIME FOR HLD, Disp: , Rfl: Austedo 6 MG tablet, TAKE 1 tablet with food Orally Once a day FOR 30 day(s), Disp: , Rfl: ibuprofen (ADVIL,MOTRIN) 800 MG tablet, Take 1 tablet by mouth 3 times a day., Disp: , Rfl: QUEtiapine (SEROquel) 50 MG tablet, Take 1 tablet by mouth every night at bedtime., Disp: , Rfl: risperiDONE (risperDAL) 1 MG tablet, Take 1 tablet by mouth Every 12 (Twelve) Hours., Disp: , Rfl: Trintellix 5 MG tablet tablet, Take 1 tablet by mouth Daily., Disp: , Rfl: propranolol (INDERAL) 10 MG tablet, Take 1 tablet by mouth 2 (Two) Times a Day., Disp: 60 tablet, Rfl: 3 Past Medical History: Diagnosis Date SVT (supraventricular tachycardia) Past Surgical History: Procedure Laterality Date APPENDECTOMY DENTAL PROCEDURE TONSILLECTOMY TUBAL ABDOMINAL LIGATION Family History Problem Relation Age of Onset No Known Problems Mother No Known Problems Father Social History Socioeconomic History Marital status: Unknown Tobacco Use Smoking status: Every Day Packs/day: 1.00 Years: 15.00 Pack years: 15.00 Types: Cigarettes Passive exposure: Current Smokeless tobacco: Never Vaping Use Vaping Use: Never used Substance and Sexual Activity Alcohol use: Yes Comment: occ Drug use: Yes Types: Marijuana Sexual activity: Defer Objective Vital Signs: BP 120/72 Pulse 99 Ht 162.6 cm (64 ) Wt 91.2 kg (201 lb) SpO2 100% BMI 34.50 kg/m?? Estimated body mass index is 34.5 kg/m?? as calculated from the following: Height as of this encounter: 162.6 cm (64 ). Weight as of this encounter: 91.2 kg (201 lb). Physical Exam Vitals reviewed. Constitutional: Appearance: Normal appearance. HENT: Head: Normocephalic. Cardiovascular: Rate and Rhythm: Normal rate and regular rhythm. Heart sounds: Normal heart sounds. Pulmonary: Effort: Pulmonary effort is normal. Breath sounds: Normal breath sounds. Musculoskeletal: Right lower leg: No edema. Left lower leg: No edema. Skin: General: Skin is warm and dry. Capillary Refill: Capillary refill takes less than 2 seconds. Neurological: General: No focal deficit present. Mental Status: She is alert and oriented to person, place, and time. Psychiatric: Mood and Affect: Mood normal. Behavior: Behavior normal. Cardiology studies reviewed: Holter monitor reviewed. Assessment and Plan Diagnoses and all orders for this visit: 1. SVT (supraventricular tachycardia) (Primary) Assessment & Plan: Holter monitor from 05/15/2023 revealed a relatively benign monitor study. Nonsustained SVT noted. Patient has been out of propanolol and is requesting a refill. - Propanolol 10 mg twice daily. Orders: - propranolol (INDERAL) 10 MG tablet; Take 1 tablet by mouth 2 (Two) Times a Day. Dispense: 60 tablet; Refill: 3 2. Other hyperlipidemia Assessment & Plan: Lipid panel from 05/25/2023 reviewed, triglycerides 122, cholesterol 262, HDL 42, LDL 196. -Continue atorvastatin at current dose. Recommendations: Report if any new/changing symptoms immediately Follow Up Return in about 6 months (around 12/14/2023) for SVT . Patient was given instructions and counseling regarding her condition or for health maintenance advice. Please see specific information pulled into the AVS if appropriate. documented in this encounter Plan of Treatment Not on file documented as of this encounter Visit Diagnoses Diagnosis SVT (supraventricular tachycardia)- Primary Other specified cardiac dysrhythmias Other hyperlipidemia documented in this encounter Care Teams Cooling Tower Technician Relationship Specialty Start Date End Date Provider, [place] [address] PCP - General 05/15/23 documented as of this encounter
--- OUTSIDE RECORDS SUMMARY | 2024-08-07 10:35 | XMS_ITS | Encounter Summary ---
Author Organization [facility] Address [address] [place] [address] Care Team Providers Care Assistant Mechanic Name Role Phone Provider, No Known Primary Care Provider Unavail able Reason for Referral * Cardiac (Routine) - Closed Specialty Diagnoses / Procedures Referred By Skyler t Referred To Contact Diagnoses SVT (supraventricular tachycardia) Palpitations Procedures Holter Monitor - 72 Hour Up To 15 Days Diana Holland APRN [address] [place] [address] Phone: tel: fax: [facility] [address] [place] [address] Phone: tel: Referral ID Status Reason Start Date Expiration Date Visits Re quested Visits Authorized [id number] Closed 05/15/2023 05/14/2024 1 1 Reason for Visit * Reason Comments Establish Care * Consultation (Routine) - Closed Specialty Diagnoses / Procedures Referred By Contac t Referred To Contact Cardiology Diagnoses Irregular heart rate Referring, [place], [place] [id number] [place] [address] [place] [address] Phone: tel: fax: Referral ID Status Reason Start Date Expiration Date Visits Re quested Visits Authorized [id number] Closed 05/08/2023 05/07/2024 1 1 Encounter Details Date Type Department Care Team (Late st Contact Info) Description 05/15/2023 1:00 PM EDT Office Visit [facility] CARDIOLOGY [address] [phone] Diana Holland APRN [address] [place] [address] SVT (supraventricular tachycardia) (Primary Dx); Screening for lipid disorders; Palpitations Social History Tobacco Use Types Packs/Day Years Used Date Smoking Tobacco: Every Day Cigarettes 1 15 Passive Smoke Exposure: Current Smokeless Tobacco: Never Tobacco Cessation:Ready to Q uit: No; Counseling Given: No Alcohol Use Standard Drinks/Week Comments Yes 0 [...] Sign Reading Time Taken Comments Blood Pressure 120/70 05/15/2023 1:02 PM EDT Pulse 90 05/15/2023 1:02 PM EDT Temperature - - Respiratory Rate - - Oxygen Saturation 97% 05/15/2023 1:02 PM EDT Inhaled Oxygen Concentration - - Weight 88.5 kg (195 lb) 05/15/2023 1:02 PM EDT Height 162.6 cm (5' 4 ) 05/15/2023 1:02 PM EDT Body Mass Index 33.47 05/15/2023 1:02 PM EDT documented in this encounter Progress Notes * Diana Holland APRN - 05/15/2023 9:27 PM EDTAssociated Problem(s): Screening for lipid disorders She reports that she was previously taking a cholesterol medication and has not had labs checked sindhu while. - Fasting lipid panel for further evaluation and management. * Diana Holland APRN - 05/15/2023 9:27 PM EDTAssociated Problem(s): SVT (supraventricular tachycardia) Patient reports an increase in palpitations. History of SVT - 7-day Holter monitor further evaluation management - We will likely start beta-mercedes at follow-up visit once monitor results reviewed. - We will obtain records from previous quality control engineering technician in [place]. Patient reportedly has had a full cardiac work-up in the last several years, including a left heart cath at [facility]. * Diana Holland APRN - 05/15/2023 1:00 PM EDTAssociated Order(s): ECG 12 Lead Post-Procedure Diagnose(s): Palpitations; SVT (supraventricular tachycardia) Images from the original note were not included. [facility] Provider Note Date: 05/15/2023 Name: Arleen Montenegro : 1990 PCP: Provider, No Known Chief Complaint Patient presents with Establish Care Subjective History of Present Illness Arleen Montenegro is a 33 y.o. female with medical history of bipolar disorder, anxiety, depression, substance abuse and pseudoseizures who presents today for new patient evaluation to establish cardiac care for history of SVT. Patient reports that she was diagnosed with SVT several years ago. She has noticed an increase in palpitations recently. She was previously followed by a quality control engineering technician in [place] but recently moved back to [place]. She reports that she was taking a beta-mercedes and a cholesterol medicine in the past but has been out of that for several months. She also reports shortness of breath and occasional dizziness. She has had a full cardiac work-up in the past several years, including a left heart cath at [facility] that was reportedly normal. Patient's mother is with her today and reports that the patient has had several episodes of passing out in the last several months, requiring CPR performed by her mom. Last episode was December 2022, ER records reviewed. There was no documentation of cardiac arrest or CPR during that visit. Cardiac history 1. SVT Echocardiogram 09/20/2019-EF 60%. Trace tricuspid regurgitation. RVSP is normal. Reports Denies Chest Pain [] [] Shortness of Air [x] [] Palpitations [x] [] Edema [] [x] Dizziness [x] [] Syncope [] [x] No Known Allergies No current outpatient medications on file. Past Medical History: Diagnosis Date SVT (supraventricular [...] Sexual activity: Defer Objective Vital Signs: BP 120/70 Pulse 90 Ht 162.6 cm (64 ) Wt 88.5 kg (195 lb) SpO2 97% BMI 33.47 kg/m?? Estimated body mass index is 33.47 kg/m?? as calculated from the following: Height as of this encounter: 162.6 cm (64 ). Weight as of this encounter: 88.5 kg (195 lb). BMI is >= 30 and <35. (Class 1 Obesity). The following options were offered after discussion;: weight loss educational material (shared in after visit summary) Physical Exam Constitutional: Appearance: Normal appearance. She is well-developed. HENT: Head: Normocephalic and atraumatic. Eyes: Pupils: Pupils are equal, round, and reactive to light. Neck: Vascular: No carotid bruit. Cardiovascular: Rate and Rhythm: Normal rate and regular rhythm. Pulses: Normal pulses. Heart sounds: Normal heart sounds. No murmur heard. Pulmonary: Breath sounds: Normal breath sounds. No wheezing or rhonchi. Musculoskeletal: Right lower leg: No edema. Left lower leg: No edema. Skin: Capillary Refill: Capillary refill takes less than 2 seconds. Coloration: Skin is not cyanotic. Nails: There is no clubbing. Neurological: Mental Status: She is alert and oriented to person, place, and time. Motor: No weakness. Gait: Gait normal. Psychiatric: Mood and Affect: Mood normal. Behavior: Behavior is cooperative. Thought Content: Thought content normal. Cognition and Memory: Memory normal. Cardiology studies reviewed: Echocardiogram 2019 and Recent hospitalization notes reviewed: ER visit from 01/12/2023 reviewed ECG 12 Lead Date/Time: 05/15/2023 1:21 PM Performed by: Diana Holland APRN Authorized by: Diana Holland APRN Comparison: not compared with previous ECG Previous ECG: no previous ECG available Rhythm: sinus tachycardia Rate: tachycardic BPM: 105 QRS axis: normal Clinical impression: normal ECG Assessment and Plan Diagnoses and all orders for this visit: 1. SVT (supraventricular tachycardia) (Primary) Assessment & Plan: Patient reports an increase in palpitations. History of SVT - 7-day Holter monitor further evaluation management - We will likely start beta-mercedes at follow-up visit once monitor results reviewed. - We will obtain records from previous quality control engineering technician in [place]. Patient reportedly has had a full cardiac work-up in the last several years, including a left heart cath at [facility]. Orders: - Holter Monitor - 72 Hour Up To 15 Days 2. Screening for lipid disorders Assessment & Plan: She reports that she was previously taking a cholesterol medication and has not had labs checked sindhu while. - Fasting lipid panel for further evaluation and management. Orders: - Lipid Panel; Future 3. Palpitations - Holter Monitor - 72 Hour Up To 15 Days - Comprehensive Metabolic Panel; Future - CBC & Differential; Future - Magnesium; Future - TSH Rfx On Abnormal To Free T4; Future Other orders - ECG 12 Lead Recommendations: ER if symptoms increase, Report if any new/changing symptoms immediately, and Limit caffeine Follow Up Return in about 4 weeks (around 06/12/2023) for cardiac testing results. Patient was given instructions and counseling regarding [...] 4:03 PM EDT SVT (supraventricular tachycardia) Palpitations ECG 12-LEAD Routine 05/15/2023 1:21 PM EDT SVT (supraventricular tachycardia) Palpitations documented in this encounter Results * TSH Rfx On Abnormal To Free T4 (05/25/2023) Blood us Diana E Trautwein HOME DEMONSTRATION AGENT LAB BLOOD ORDERABLES Fin al Result Performing Organization Address [facility] Phone Number [facility]
[address] [place] [address], [place] [phone] * Lipid Panel (05/25/2023) Blood Diana E Trautwein HOME DEMONSTRATION AGENT LAB BLOOD ORDERABLES Fin al Result Performing Organization Address [facility] Phone Number [facility]
[address] [place] [address], [place] [phone] * CBC & Differential (05/25/2023) Blood Diana E Trautwein HOME DEMONSTRATION AGENT LAB BLOOD ORDERABLES Fin al Result Performing Organization Address [facility] Phone Number [facility]
[address] [place] [address], [place] [phone] * Comprehensive Metabolic Panel (05/25/2023) Blood Diana E Trautwein HOME DEMONSTRATION AGENT LAB BLOOD ORDERABLES Fin al Result Performing Organization Address [facility] de Phone Number [facility]
[address] [place] [address], [place] [phone] * HOLTER MONITOR >48HRS UP TO 7 [...] this exam include Supraventricular tachycardia. Total beats: [id number]. Average HR: 86. Min HR: 46. Max HR: 179. Study Impressions A relatively benign monitor study. Nonsustained SVT. See raw data for further information. us Diana Holland APRN [facility] ORDShay JONES Final Result * ECG 12-LEAD (05/15/2023 1:21 PM EDT) Narrative ClotildeSlime ramos RegSched Rep - 05/15/2023 1:21 PM EDT Diana Holland APRN ? 05/15/2023 ??9:32 PM ECG 12 Lead Date/Time: 05/15/2023 1:21 PM Performed by: Diana Holland APRN Authorized by: Diana Holland APRN Comparison: not compared with previous ECG Previous ECG: no previous ECG available Rhythm: sinus tachycardia Rate: tachycardic BPM: 105 QRS axis: normal Clinical impression: normal ECG Procedure Note Diana Holland APRN - 05/15/2023 1:00 PM EDT Images from the original note were not included. [facility] Provider Note Date: 05/15/2023 Name: Arleen Montenegro : 1990 PCP: Provider, No Known Chief Complaint Patient presents with Establish Care Subjective History of Present Illness Arleen Montenegro is a 33 y.o. female with medical history of bipolar disorder,anxiety, depression, substance abuse and pseudoseizures who presents todayfor new patient evaluation to establish cardiac care for history of SVT.Patient reports that she was diagnosed with SVT several years ago. Shehas noticed an increase in palpitations recently. She was previouslyfollowed by a quality control engineering technician in [place] but recently moved back to [place].She reports that she was taking a beta-mercedes and a cholesterol medicinein the past but has been out of that for several months. She also reportsshortness of breath and occasional dizziness. She has had a full cardiacwork-up in the past several years, including a left heart cath at [facility] that was reportedly normal. Patient's mother is with her todayand reports that the patient has had several episodes of passing out inthe last several months, requiring CPR performed by her mom. Last episodewas December 2022, ER records reviewed. There was no documentation of cardiacarrest or CPR during that visit. Cardiac history 1. SVT Echocardiogram 09/20/2019-EF 60%. Trace tricuspid regurgitation. RVSP isnormal. Reports Denies Chest Pain [] [] Shortness of Air [x] [] Palpitations [x] [] Edema [] [x] Dizziness [x] [] Syncope [] [x] No Known Allergies No current outpatient medications on file. Past Medical History: Diagnosis Date SVT (supraventricular [...] Sexual activity: Defer Objective Vital Signs: BP 120/70 Pulse 90 Ht 162.6 cm (64 ) Wt 88.5 kg (195 lb) [id number]% BMI 33.47 kg/m?? Estimated body mass index is 33.47 kg/m?? as calculated from thefollowing: Height as of this encounter: 162.6 cm (64 ). Weight as of this encounter: 88.5 kg (195 lb). BMI is >= 30 and <35. (Class 1 Obesity). The following options wereoffered after discussion;: weight loss educational material (shared inafter visit summary) Physical Exam Constitutional: Appearance: Normal appearance. She is well-developed. HENT: Head: Normocephalic and atraumatic. Eyes: Pupils: Pupils are equal, round, and reactive to light. Neck: Vascular: No carotid bruit. Cardiovascular: Rate and Rhythm: Normal rate and regular rhythm. Pulses: Normal pulses. Heart sounds: Normal heart sounds. No murmur heard. Pulmonary: Breath sounds: Normal breath sounds. No wheezing or rhonchi. Musculoskeletal: Right lower leg: No edema. Left lower leg: No edema. Skin: Capillary Refill: Capillary refill takes less than 2 seconds. Coloration: Skin is not cyanotic. Nails: There is no clubbing. Neurological: Mental Status: She is alert and oriented to person, place, and time. Motor: No weakness. Gait: Gait normal. Psychiatric: Mood and Affect: Mood normal. Behavior: Behavior is cooperative. Thought Content: Thought content normal. Cognition and Memory: Memory normal. Cardiology studies reviewed: Echocardiogram 2019 and Recenthospitalization notes reviewed: ER visit from 01/12/2023 reviewed ECG 12 Lead Date/Time: 05/15/2023 1:21 PM Performed by: Diana Holland APRN Authorized by: Diana Holland APRN Comparison: not compared with previous ECG Previous ECG: no previous ECG available Rhythm: sinus tachycardia Rate: tachycardic BPM: 105 QRS axis: normal Clinical impression: normal ECG Assessment and Plan Diagnoses and all orders for this visit: 1. SVT (supraventricular tachycardia) (Primary) Assessment & Plan: Patient reports an increase in palpitations. History of SVT - 7-day Holter monitor further evaluation management - We will likely start beta-mercedes at follow-up visit once monitorresults reviewed. - We will obtain records from previous quality control engineering technician in [place].Patient reportedly has had a full cardiac work-up in the last severalyears, including a left heart cath at [facility]. Orders: - Holter Monitor - 72 Hour Up To 15 Days 2. Screening for lipid disorders Assessment & Plan: She reports that she was previously taking a cholesterol medication andhas not had labs checked in a while. - Fasting lipid panel for further evaluation and management. Orders: - Lipid Panel; Future 3. Palpitations - Holter Monitor - 72 Hour Up To 15 Days - Comprehensive Metabolic Panel; Future - CBC & Differential; Future - Magnesium; Future - TSH Rfx On Abnormal To Free T4; Future Other orders - ECG 12 Lead Recommendations: ER if symptoms increase, Report if any new/changingsymptoms immediately, and Limit caffeine Follow Up Return in about 4 weeks (around 06/12/2023) for cardiac testing results. Patient was given instructions and counseling regarding her condition orfor health maintenance advice. Please see specific information pulled intothe AVS if appropriate. us Diana Holland APRN ECG ORDERABLES Final Re sult documented in this encounter Visit Diagnoses Diagnosis SVT (supraventricular tachycardia)- Primary Other specified cardiac dysrhythmias Screening for lipid disorders Palpitations documented in this encounter Care Teams Assistant Mechanic Relationship Specialty Start Date End Date Provider, [place] [address] PCP - General 05/15/23 documented as of this encounter
--- OUTSIDE RECORDS SUMMARY | 2024-08-07 10:35 | XMS_ITS | Encounter Summary ---
Author Organization Healthcare Address [address] [place] [address] Care Team Providers Care Regulator Inspector Name Role Phone Lc Hancock MD Primary Care Provider [phone] Encounter Details Date Type Department Care Team (Latest Contact Info) Description 11/22/2022 Travel Social History Tobacco Use Types Packs/Day Years Used Date Smoking Tobacco: Never Assessed Comments Unknown Sex and Gender Information Value Date Recorded Sex Assigned at Not on file Legal Sex Female 8:18 PM EDT Gender Identity Not on file Sexual Orientation Not on file COVID-19 Exposure Response Date Recorded In the last 10 days, have yo u been in contact with someone who was confirmed or suspected to have Coronavirus/COVID-19? No / Unsure 11/21/2022 8:45 PM EST documented as of this encounter Plan of Treatment Not on file documented as of this encounter Visit Diagnoses Not on filedocumented in this encounter Care Teams Regulator Inspector Relationship Specialty Start Date End Date Lc Hancock MD [address] [place] [id number] PCP - General 02/05/21 documented as of this encounter
--- OUTSIDE RECORDS SUMMARY | 2024-08-07 10:35 | XMS_ITS | Encounter Summary ---
Author Organization Healthcare Address [address] [place] [address] Care Team Providers Care Automatic Equipment Technician Name Role Phone Lc Hancock MD Primary Care Provider [phone] Reason for Visit * Reason Comments Wound Check Encounter Details Date Type Department Care Team (Late st Contact Info) Description 12/09/2023 9:32 PM EDT - 12/09/2023 10:45 PM EDT Emergency [facility] [address] [place] [id number] Discharge Disposition: Left WIthout Being Seen Social History Tobacco Use Types Packs/Day Years [...] Mass Index 30.9 12/09/2023 9:37 PM EDT documented in this encounter Miscellaneous Notes * ED Triage Notes - Daniele Sebastian RN - 12/09/2023 9:32 PM EDT Pt endorses boil on left groin, endorses bright yellow/orange urine/ increase in pain today. documented in this encounter Plan of Treatment Not on file documented as of this encounter Visit Diagnoses Not on filedocumented in this encounter Care Teams Automatic Equipment Technician Relationship Specialty Start Date End Date Lc Hancock MD [address] [place] [address] PCP - General 02/05/21 documented as of this encounter
--- OUTSIDE RECORDS SUMMARY | 2024-08-07 10:36 | XMS_ITS | Encounter Summary ---
Author Organization Healthcare Address [address] [place] [address] Care Team Providers Care Quality Assurance Associate Name Role Phone Lc Hancock MD Primary Care Provider Reason for Visit * Reason Comments Seizures Shortness of Breath Encounter Details Date Type Department Care Team ([facility] st Contact Info) Description 11/21/2022 8:30 PM EST - 11/22/2022 2:42 AM EST Emergency [facility] Emergency Department [address] [place] [id number] Radha Riddle MD [address] [place] [phone] Teo Martin MD [address] [place] [phone] Seizure-like activity (CMS/HCC) (Primary Dx) Discharge Disposition: Home or Self Care Social History Tobacco Use Types Packs/Day Years [...] PM EST documented as of this encounter Last Filed Vital Signs Vital Sign Reading Time Taken Comments Blood Pressure 88/42 11/22/2022 2:10 AM EST Pulse 77 11/22/2022 2:10 AM EST Temperature 36.4 ??C (97.5 ??F) 11/22/2022 2:10 AM ES T Respiratory Rate 18 11/22/2022 2:10 AM EST Oxygen Saturation 95% 11/22/2022 2:10 AM EST Inhaled Oxygen Concentration - - Weight 99.8 kg (220 lb) 11/21/2022 8:45 PM EST Height 154.9 cm (5' 1 ) 11/21/2022 8:45 PM EST Body Mass Index 41.57 11/21/2022 8:45 PM EST documented in this encounter Discharge Instructions * Discharge Instructions* Clayton Sarabia MD - 11/22/2022 1:50 AM EST Seizure precautions: 1) Avoid sleep loss 2) Avoid open bodies of water or open flame 3) Avoid situations where loss of consciousness may predispose to injury 4) Avoid swimming alone 5) Take showers, not baths Do not drive until cleared by your neuro. documented in this encounter Miscellaneous Notes * ED Provider Notes - Gregg Baldwin DO - 11/21/2022 8:29 PM EST HPI Chief Complaint Patient presents with Seizures Shortness of Breath This is a 32-year-old female with history of bipolar, anxiety depression, nonepileptic seizures, substance abuse, hypertension presenting for possible seizure like activity. Patient believes she has had a seizure earlier today. Mother who is at bedside states that patient has been under lot of stress as the mother and father are going through a divorce in the father just recently left today. Became very upset started having chest pain and increased work of breathing then had with the mother described as eyes rolling in the back of her head and shaking in her arms. She states this episode lasted approximately 30 seconds. Did report some confusion afterwards. No tongue bite or urinary incontinence. No data recorded Patient History History reviewed. No pertinent past medical history. History reviewed. No pertinent surgical history. No family history on file. Immunization History Immunization History: reviewed Allergies: No Known Allergies Review of Systems Review of Systems Neurological: Positive for seizures. Physical Exam ED Triage Vitals [11/21/222044] Temp Heart Rate Resp BP 36.4 ??C (97.5 ??F) 77 20 118/69 SpO2 Temp Source Heart Rate Source Patient Position 98 % Oral Monitor -- BP Location FiO2 (%) -- -- Physical Exam Vitals reviewed. Constitutional: General: She is not in acute distress. Appearance: She is well-developed. She is not ill-appearing or toxic-appearing. HENT: Head: Normocephalic and atraumatic. Right Ear: External ear normal. Left Ear: External ear normal. Nose: Nose normal. Mouth/Throat: Mouth: Mucous membranes are moist. Pharynx: Oropharynx is clear. Eyes: Extraocular Movements: Extraocular movements intact. Conjunctiva/sclera: Conjunctivae normal. Cardiovascular: Rate and Rhythm: Normal rate. Pulses: Normal pulses. Pulmonary: Effort: Pulmonary effort is normal. Breath sounds: Normal breath sounds. Abdominal: General: There is no distension. Palpations: Abdomen is soft. Tenderness: There is no abdominal tenderness. There is no guarding or rebound. Musculoskeletal: Cervical back: Normal range of motion and neck supple. Right lower leg: No edema. Left lower leg: No edema. Skin: General: Skin is warm and dry. Capillary Refill: Capillary refill takes less than 2 seconds. Neurological: General: No focal deficit present. Mental Status: She is alert and oriented to person, place, and time. Cranial Nerves: No cranial nerve deficit. Sensory: No sensory deficit. Motor: No weakness. Coordination: Coordination normal. Gait: Gait normal. ED Course & MDM ED Disposition: Medical Decision Making This patient was seen and staffed with ED attending, Dr. Riddle. In summary, this is a 32 y.o. female presenting for evaluation of Seizures and Shortness of Breath. Patient arrived hemodynamically stable. Exam notable for nontoxic- appearing female. Nonfocal neurologic exam. Unremarkable cardiopulmonary exam. Based on her history and physical exam, my differential diagnosis included seizure, non epileptic seizure, drug intoxication, metabolic abnormality. Ruling out the most morbid conditions drove my clinical assessment. Given this, workup included troponins, UA, TSH, UDS, alcohol level, magnesium, CMP, Tylenol level, salicylate level, test, CBC, VBG, chest x-ray, CT head. ITherapy included IV fluids. It should be noted that her chronic conditions includes bipolar disorder, which currently is not atgoal therapy. This complicates her clinical picture because it may be exacerbating symptoms. Additional history was provided by family Care was transferred to the oncoming resident with laboratory analysis, imaging, and final disposition still pending. ED Prescriptions None Sign Off Checklist Clinical Impression: See Transfer of Care note for Clinical Impression ED Disposition: See Transfer of Care note for ED Disposition - Gregg Baldwin DO Resident 11/21/22 [id number] Cosigned by Radha Riddle MD at 11/23/2022 2:39 PM EST Associated attestation - Radha Riddle MD - 11/23/2022 2:39 PM EST I saw and evaluated the patient with the resident/fellow. I discussed the case with the resident/fellow and agree with the findings and plan as documented. * ED Triage Notes - Dc Guerrero - 11/21/2022 8:29 PM EST Patient brought to ED from home via EMS, patient states that she had multiple seizures today, but does not know if she takes seizure medications, also states she has a hard time breathing because of chest pressure that has been going on for some time. Patient was seen at [facility] last night and discharged home, patient states she has an appointment with a senior engineering associate in the morning but does not know who. * Progress Notes - Clayton Sarabia MD - 11/21/2022 8:29 PM EST I received sign-out and accepted care of this patient from the departing resident physician. Pleasesee the primary providers??? note for complete elements of the history, physical exam, and ED course. Illness Severity: Stable Patient Summary: Arleen Montenegro is a 32 y.o. female with a PMHx of History reviewed. No pertinent past medical history. presented to the ED with Seizures and Shortness of Breath. Most recent vital signs: Visit Vitals BP (!) 88/42 (Patient Position: Lying) Pulse 77 Temp 36.4 ??C (97.5 ??F) (Oral) Resp 18 Ht 1.549 m (5' 1 ) Wt 99.8 kg (220 lb) SpO2 95% BMI 41.57 kg/m?? BSA 2.07 m?? Room/Bed: 49/49 Disposition: Labs were independently interpreted by me. They are significant for UDS presumptive pos for cannabinoid, cocaine, methadone, trops undetectable. Upon repeat evaluation, patient in stable condition, amenable to discharge at this time. My clinical impression was discussed with the patient and all questions were answered. Specific return precautions were given, with verbalization of understanding and agreement of this plan. Any pending tests are to be followed up online. Ambulatory referral orders were placed to the following services: Referrals Provided Procedures Discharge Ambulatory referral to Neurology Referral Priority: Routine Referral Type: Consultation Referral Reason: Specialty Services Required Requested Specialty: Neurology Number of Visits Requested: 1 The following providers were documented as being assigned to this patient during this visit: Sincerely, MD Teo Berry MD Jacob M Agner, DO Philip M Kayser, MD Clinical Impressions as of 12/03/221851 Seizure-like activity (CMS/HCC) Impression: Complete Disposition: Discharge Cosigned by Teo Martin MD at 12/05/2022 3:47 PM EDT Associated attestation - Teo Martin MD - 12/05/2022 3:47 PM EDT Seen by resident only. documented in this encounter Plan of Treatment Not on file documented as of this encounter Procedures Procedure Name Priority Date/Time Associated Diagnosis Comments CT HEAD WO IV CONTRAST STAT 3 12:54 AM EST TROPONIN T, HIGH SENSITIVITY, 2 HOUR, PLASMA Timed 11/21/2022 11:25 PM EST URINALYSIS MICROSCOPIC FOR UA REFLEX STAT 11/21/2022 9:56 PM EST COCAINE METABOLITE CONFIRM URINE STAT 11/21/2022 9:56 PM EST METHADONE, LCMSMS STAT 11/21/2022 9:5 6 PM EST DRUG ABUSE SCREEN, URINE STAT 11/21/2022 9:56 PM EST THC URINE CONFIRM STAT 11/21/2022 9:5 6 PM EST URINALYSIS WITH REFLEX MICROSCOPIC STAT 11/21/2022 9:56 PM EST XR CHEST 1 VIEW STAT 11/21/2022 9:31 PM EST ED PROTOCOL HIV 1/2 ANTIBODY/ANTIGEN SCREEN W/REFLEX TO HIV 1/2 ANTIBODY DIFFERENTIATION STAT 11/21/2022 9:27 PM EST TROPONIN T, HIGH SENSITIVITY, 0 HOUR, PLASMA, REFLEX TO 2 HOUR STAT 11/21/2022 9:27 PM EST HEPATITIS C VIRUS (HCV) QUANTITATIVE PCR - ED STAT 11/21/2022 9:27 PM EST ETHYL ALCOHOL PLASMA STAT 11/21/2022 9:27 PM EST ACETAMINOPHEN, QUANTATATIVE, PLASMA STAT 11/21/2022 9:27 PM EST HIV 1/2 ANTIBODY/ANTIGEN SCREEN WITH REFLEX TO HIV I/II DIFFERENTIATION STAT 11/21/2022 9:27 PM EST HEPATITIS C ANTIBODY - ED W/REFLEX TO HCV QUANT PCR STAT 11/21/2022 9:27 PM EST CBC WITH AUTO DIFFERENTIAL STAT 11/21/2022 9:27 PM EST TEST QUALITATIVE PLASMA STAT 11/21/2022 9:27 PM EST TSH STAT 11/21/2022 9:27 PM EST FREE T4, PLASMA STAT 11/21/2022 9:27 PM EST MAGNESIUM, PLASMA STAT 11/21/2022 9:2 7 PM EST BLOOD GAS PANEL, VENOUS STAT 11/21/19 9:27 PM EST SALICYLATE, QUANTITATIVE, PLASMA STAT 11/21/2022 9:27 PM EST COMPREHENSIVE METABOLIC PANEL, PLASMA STAT 11/21/2022 9:27 PM EST ECG ADULT STAT 11/21/2022 9:18 PM EST documented in this encounter Results * CT Head wo IV Contrast (11/22/2022 12:54 AM EST) Anatomical Region Laterality Modality Head Computed Tomogra phy Impressions 11/22/2022 1:45 AM EST No acute intracranial abnormality. CRITICAL RESULT: ?? No. COMMUNICATION: Per this written report. Approved by Theo Rich D.O. on 11/22/2022 1:23 AM By electronically signing this report, I, the attending physician, attest that I have personally reviewed the images/data for the above examination(s) and agree with the final edited report. Dictated by Theo Rich D.O. on 11/22/2022 1:23 AM Signed by Aaron Glynn MD on 11/22/2022 1:45 AM Narrative 11/22/2022 1:45 AM EST Exam/Procedure: CT HEAD WO IV CONTRAST ordered by RADHA RIDDLE, [id number] CLINICAL INDICATION: seizure TECHNIQUE: Routine contiguous axial CT images of the head were obtained without contrast administration. Total DLP (Dose-Length Product): 665.57 mGy.cm. Please note: The reported value represents the total of one or more individual components during the CT acquisition on this date and at this time, and as such, the same value may appear in more than one CT report depending on the interpreting/reporting physicians. COMPARISON: None. FINDINGS: No acute intracranial abnormality. No evidence of acute hemorrhage or ischemia. No mass, mass effect, or midline displacement of structures. Normal ventricular size and configuration. Patent basal cisterns. No displaced or depressed calvarial fractures. The mastoid air cells are clear. Partial mucosal thickening in the left sphenoid sinus. The other visualized paranasal sinuses are clear. Procedure Note Aaron Glynn MD - 11/22/2022 Exam/Procedure: CT HEAD WO IV CONTRAST ordered by RADHA RIDDLE, [id number] CLINICAL INDICATION: seizure TECHNIQUE: Routine contiguous axial CT images of the head were obtained withoutcontrast administration. Total DLP (Dose-Length Product): 665.57 mGy.cm. Please note: The reportedvalue represents the total of one or more individual components during theCT acquisition on this date and at this time, and as such, the same valuemay appear in more than one CT report depending on theinterpreting/reporting physicians. COMPARISON: None. FINDINGS: No acute intracranial abnormality. No evidence of acute hemorrhage orischemia. No mass, mass effect, or midline displacement of structures.Normal ventricular size and configuration. Patent basal cisterns. No displaced or depressed calvarial fractures. The mastoid air cells areclear. Partial mucosal thickening in the left sphenoid sinus. The othervisualized paranasal sinuses are clear. IMPRESSION: No acute intracranial abnormality. CRITICAL RESULT: No. COMMUNICATION: Per this written report. Approved by Theo Rich D.O. on 11/22/2022 1:23 AM By electronically signing this report, I, the attending physician, attestthat I have personally reviewed the images/data for the aboveexamination(s) and agree with the final edited report. Dictated by Theo Rich D.O. on 11/22/2022 1:23 AM Signed by Aaron Glynn MD on 11/22/2022 1:45 AM Radha Riddle MD IMG CT PROCEDURES Final Result * Troponin T, High Sensitivity, 2 Hour, Plasma (11/21/2022 11:25 PM EST) Troponin T, High Sensitivity, 2 Hour <6 <14 ng/L 11/21/2022 11:49 PM EST [facility] Troponin Delta Interpretation Not Calculated 11/21/2022 11:49 PM EST [facility] Comment:Specimen not collect ed within acceptable timeframe. Delta will not be calculated. Blood Venous blood specimen / Unknown Venipuncture / Unknown 11/21/2022 11:25 PM EST 11/21/2022 11:28 PM EST Radha Riddle MD LAB BLOOD ORDERABLES Final Res ult Performing Organization Address City/[facility] Co de Phone Number [facility] [address] [place] [address] * Methadone Confirm LCMSMS (11/21/2022 9:56 PM EST) Methadone <50 <50 ng/mL 11/23/2022 2:11 PM EST [facility] EDDP - Methadone Metabolite <50 <50 ng/mL 11/23/2022 2:11 PM EST [facility] Urine Urine specimen obtained by clean catch procedure / Unknown Non-blood Collection / Unknown 11/21/2022 9:56 PM EST 11/21/2022 10:01 PM EST Narrative [facility] - 11/23/2022 2:11 PM EST Drug analysis is confirmed by LC-MS/MS (LC Tandem Mass Spectrometry) on Urine specimens. ?? This test was developed and its performance characteristics determined by [facility]. It has not been cleared or approved by the FDA. The laboratory is regulated under CLIA as qualified to perform high-complexity testing. This test is used for clinical purposes. Testing is performed at the [facility]. Radha Riddle MD LAB URINE ORDERABLES Final Res ult Performing Organization Address [facility] Co de Phone Number [facility] [address] [place] [address] * (ABNORMAL) Cocaine Metabolite Confirm Urine (11/21/2022 9:56 PM EST) Benzoylecgonine >1,000(H) <50 ng/mL 2:10 PM EST [facility] Urine Urine specimen obtained by clean catch procedure / Unknown Non-blood Collection / Unknown 11/21/2022 9:56 PM EST 11/21/2022 10:01 PM EST Narrative [facility] - 11/23/2022 2:10 PM EST Drug analysis is confirmed by LC-MS/MS (LC Tandem Mass Spectrometry) on Urine specimens. ?? This test was developed and its performance characteristics determined by [facility]. It has not been cleared or approved by the FDA. The laboratory is regulated under CLIA as qualified to perform high-complexity testing. This test is used for clinical purposes. Testing is performed at the [facility]. Radha Riddle MD LAB URINE ORDERABLES Final Res ult Performing Organization Address [facility] de Phone Number [facility] [address] [place] [address] * (ABNORMAL) THC Urine Confirm LCMSMS (11/21/2022 9:56 PM EST) 9 Carboxy THC 22(H) <10 ng/mL 11/23/2022 2:09 PM EST [facility] 9 Carboxy THC Glucuronide 330(H) <25 ng/mL 11/23/2022 2:09 PM EST [facility] Urine Urine specimen obtained by clean catch procedure / Unknown Non-blood Collection / Unknown 11/21/2022 9:56 PM EST 11/21/2022 10:01 PM EST Narrative [facility] - 11/23/2022 2:09 PM EST Drug analysis is confirmed by LC-MS/MS (LC Tandem Mass Spectrometry) on Urine specimens. ?? This test was developed and its performance characteristics determined by [facility]. It has not been cleared or approved by the FDA. The laboratory is regulated under CLIA as qualified to perform high-complexity testing. This test is used for clinical purposes. Testing is performed at the [facility]. us Radha Riddle MD LAB URINE ORDERABLES Final Res ult Performing Organization Address [facility] Co de Phone Number [facility] [address] [place] [address] * Urinalysis Microscopic Examination (11/21/2022 9:56 PM EST) Urine Urine specimen obtained by clean catch procedure / Unknown Non-blood Collection / Unknown 11/21/2022 9:56 PM EST 11/21/2022 10:01 PM EST Radha Riddle MD LAB URINE ORDERABLES Final Res ult [facility] [address] [place] [address] * Drug abuse screen (11/21/2022 9:56 PM EST) Amphetamine Screen Urine Negative Cutoff: 500 ng/mL 11/21/2022 10:34 PM EST [facility] Benzodiazepines Screen Urine Negative Cutoff: 200 ng/mL 11/21/2022 10:34 PM EST [facility] Cannabinoid Screen Urine Presumptive positive. Confirmation by LC-MS/MS to follow. Cutoff: 50 ng/mL 11/21/2022 10:34 PM EST [facility] Cocaine Screen Urine Presumptive positive. Confirmation by LC-MS/MS to follow. Cutoff: 300 ng/mL 11/21/2022 10:34 PM EST [facility] Barbiturate Screen Urine Negative Cutoff: 200 ng/mL 11/21/2022 10:34 PM EST [facility] Opiate Screen Urine Negative Cutoff: 300 ng/mL 11/21/2022 10:34 PM EST [facility] Methadone Screen Urine Presumptive positive. Confirmation by LC-MS/MS to follow. Cutoff: 300 ng/mL 11/21/2022 10:34 PM EST [facility] Buprenorphine Screen Urine Negative Cutoff: 10 ng/mL 11/21/2022 10:34 PM EST [facility] Fentanyl Screen Urine Negative Cutoff: 1 ng/mL 11/21/2022 10:34 PM EST [facility] Oxycodone Screen Urine Negative Cutoff: 100 ng/mL 11/21/2022 10:34 PM EST [facility] Urine Urine specimen obtained by clean catch procedure / Unknown Non-blood Collection / Unknown 11/21/2022 9:56 PM EST 11/21/2022 10:01 PM EST Radha Riddle MD LAB URINE ORDERABLES Final Res ult [facility] [address] [place] [address] * (ABNORMAL) Urinalysis with reflex microscopic (11/21/2022 9:56 PM EST) Color, Urine Yellow LAB URINALYSIS - AUTOMATED METHOD 11/21/2022 11:46 PM EST [facility] Clarity, Urine Cloudy LAB URINALYSIS - AUTOMATED METHOD 11/21/2022 11:46 PM EST [facility] Spec [place], Urine 1.011 <=1.005 to >=1.030 LAB URINALYSIS - AUTOMATED METHOD 11/21/2022 11:46 PM EST [facility] pH, Urine 6.0 4.5 to 8 LAB URINALYSIS - AUTOMATED METHOD 11/21/2022 11:46 PM EST [facility] Protein, Urine Negative Negative mg/dL LAB URINALYSIS - AUTOMATED METHOD 11/21/2022 11:46 PM EST [facility] Glucose, Urine Negative Negative mg/dL LAB URINALYSIS - AUTOMATED METHOD 11/21/2022 11:46 PM EST [facility] Ketones, Urine Negative Negative mg/dL LAB URINALYSIS - AUTOMATED METHOD 11/21/2022 11:46 PM EST [facility] Blood, Urine Negative Negative LAB URINALYSIS - AUTOMATED METHOD 11/21/2022 11:46 PM EST [facility] Bilirubin, Urine Negative Negative LAB URINALYSIS - AUTOMATED METHOD 11/21/2022 11:46 PM EST [facility] Urobilinogen, Urine 1.0 0.2 to 1.0 mg/dL LAB URINALYSIS - AUTOMATED METHOD 11/21/2022 11:46 PM EST [facility] Leukocytes, Urine Large(A) Negative LAB URINALYSIS - AUTOMATED METHOD 11/21/2022 11:46 PM EST [facility] Nitrite, Urine Negative Negative LAB URINALYSIS - AUTOMATED METHOD 11/21/2022 11:46 PM EST [facility] RBC, Urine 2 0 to 3 /HPF LAB URINALYSIS - AUTOMATED METHOD 11/21/2022 11:46 PM EST [facility] Comment:This result was prev iously suppressed from the chart. WBC, Urine >50(A) 0 to 5 /HPF LAB URINALYSIS - AUTOMATED METHOD 11/21/2022 11:46 PM EST [facility] Comment:This result was prev iously suppressed from the chart. Squamous Epithelial Cells 16 - 30(A) 0 to 5 /HPF LAB URINALYSIS - AUTOMATED METHOD 11/21/2022 11:46 PM EST [facility] Comment:This result was prev iously suppressed from the chart. Hyaline Casts 0 - 8 0 to 8 /LPF LAB URINALYSIS - AUTOMATED METHOD 11/21/2022 11:46 PM EST [facility] Comment:This result was prev iously suppressed from the chart. Bacteria, Urine Present Negative LAB URINALYSIS - AUTOMATED METHOD 11/21/2022 11:46 PM EST [facility] Comment:This result was prev iously suppressed from the chart. Renal Tubular Cells <1-2 0 /HPF 11/21/2022 11:46 PM EST [facility] Comment:This result was prev iously suppressed from the chart. Trichomonas Present Absent 11/21/2022 11:46 PM EST [facility] Comment:This result was prev iously suppressed from the chart. Yeast (Budding and/or Pseudohyphae) Present(A) Absent 11/21/2022 11:46 PM EST [facility] Comment:This result was prev iously suppressed from the chart. Urine Urine specimen obtained by clean catch procedure / Unknown Non-blood Collection / Unknown 11/21/2022 9:56 PM EST 11/21/2022 10:01 PM EST Narrative [facility] - 11/21/2022 11:46 PM EST Performed by manual method us Radha Riddle MD LAB URINE ORDERABLES Final Res ult [facility] [address] [place] [id number] * XR Chest 1 View (11/21/2022 9:31 PM EST) Anatomical Region Laterality Modality Chest Digital Radiogra phy Impressions 11/21/2022 10:06 PM EST Borderline cardiomegaly, otherwise no acute findings. CRITICAL RESULT: ?? No. COMMUNICATION: Per this written report. Dictated by Carter Hanson MD on 11/21/2022 10:05 PM Signed by Carter Hanson MD on 11/21/2022 10:06 PM Narrative 11/21/2022 10:06 PM EST Exam/Procedure: XR CHEST 1 VIEW ordered by RADHA RIDDLE, [id number] CLINICAL INDICATION: ? seizure TECHNIQUE: XR CHEST 1 VIEW COMPARISON: None. FINDINGS: No consolidation or evidence of a significant effusion. No appreciable pneumothorax. Borderline cardiomegaly, with unremarkable cardiac and mediastinal contours. No free subdiaphragmatic gas. No acute osseous findings. Procedure Note Carter Hanson MD - 11/21/2022 Exam/Procedure: XR CHEST 1 VIEW ordered by RADHA RIDDLE, [id number] CLINICAL INDICATION: ? seizure TECHNIQUE: XR CHEST 1 VIEW COMPARISON: None. FINDINGS: No consolidation or evidence of a significant effusion. No appreciablepneumothorax. Borderline cardiomegaly, with unremarkable cardiac andmediastinal contours. No free subdiaphragmatic gas. No acute osseousfindings. IMPRESSION: Borderline cardiomegaly, otherwise no acute findings. CRITICAL RESULT: No. COMMUNICATION: Per this written report. Dictated by Carter Hanson MD on 11/21/2022 10:05 PM Signed by Carter Hanson MD on 11/21/2022 10:06 PM Radha Riddle MD IMG XR PROCEDURES Final Result * Hepatitis C Virus (HCV) Quantitative PCR - ED (11/21/2022 9:27 PM EST) Hepatitis C Virus (HCV) Quantitative Interpretation Not Detected Not Detected . 11/22/2022 12:23 PM EST [facility] Hepatitis C Virus (HCV) Quantitative Viral Load Log Result <1.08 <1.08 log10 IU/mL 11/22/2022 12:23 PM EST [facility] Hepatitis C Virus (HCV) Quantitative IU/mL Result <12 <12 IU/mL 11/22/2022 12:23 PM EST [facility] Blood Venous blood specimen / Unknown Venipuncture / Unknown 11/21/2022 9:27 PM EST 11/21/2022 9:52 PM EST Narrative [facility] - 11/22/2022 12:23 PM EST The [employer] M2000 HCV test is a Real Time in vitro nucleic acid amplification test for the quantitation of Hepatitis C Viral (HCV) RNA in human serum in HCV-infected individuals. It is intended for use as an aid in the management of HCV-infected individuals undergoing anti-viral therapy. The dynamic range for this test is log10 = 1.08 to 8.00 and/or 12 to 100,000,000 IU/mL. The limit of detection (LOD) for this assay is 12 IU/mL and the limit of quantitation (LOQ) is 12 IU/mL. This assay is FDA approved for clinical use. Radha Riddle MD LAB BLOOD ORDERABLES Final Res ult Performing Organization Address [facility] de Phone Number [facility] [address] [place] [address] * Salicylate level (11/21/2022 9:27 PM EST) Salicylate, Quantitative, Plasma <1.0 <25 mg/dL mg/dL 11/21/2022 9:56 PM EST [facility] Blood Venous blood specimen / Unknown Venipuncture / Unknown 11/21/2022 9:27 PM EST 11/21/2022 9:34 PM EST Narrative [facility] - 11/21/2022 9:56 PM EST Therapeutic Range: ? <25 mg/dL Supratherapeutic Level: ??>30 mg/dL Radha Riddle MD LAB BLOOD ORDERABLES Final Res ult Performing Organization Address [facility] de Phone Number [facility] [address] [place] [address] * (ABNORMAL) Acetaminophen, Quantitative, Plasma (11/21/2022 9:27 PM EST) Acetaminophen <5.0(L) 10.0 - 30.0 ??g/mL 11/21/2022 10:15 PM EST [facility] Blood Venous blood specimen / Unknown Venipuncture / Unknown 11/21/2022 9:27 PM EST 11/21/2022 9:34 PM EST Narrative [facility] - 11/21/2022 10:15 PM EST Therapeutic: 10 to 30 ug/mL Supratherapeutic: >35 ug/mL Radha Riddle MD LAB BLOOD ORDERABLES Final Res ult Performing Organization Address City/[facility]/ZIP Co de Phone Number [facility] [address] [place] [address] * HIV 1 & 2 Antibody/Antigen Screen (11/21/2022 9:27 PM EST) Pathologist [facility] [place] HIV 1 & 2 Antibody/Antigen Screen Non Reactive Non Reactive 11/21/2022 10:28 PM EST [facility] Comment:Screening for HIV 1 & 2 antibodies, and P24 antigen is NONREACTIVE. No confirmatory testing is required. Blood Venous blood specimen / Unknown Venipuncture / Unknown 11/21/2022 9:27 PM EST 11/21/2022 9:52 PM EST Radha Riddle MD LAB BLOOD ORDERABLES Final Res ult Performing Organization Address [facility] Co de Phone Number [facility] [address] [place] [id number] * (ABNORMAL) CBC w/diff (11/21/2022 9:27 PM EST) Pathologist [facility] [place] WBC Count 15.33(H) 3.70 - 10.30 10*3/uL LAB HEMATOLOGY METHOD 11/21/2022 9:36 PM EST [facility] RBC Count 4.03 3.90 - 5.20 10*6/uL LAB HEMATOLOGY METHOD 11/21/2022 9:36 PM EST [facility] HGB 12.3 11.2 - 15.7 g/dL LAB HEMATOLOGY METHOD 11/21/2022 9:36 PM EST [facility] HCT 36.7 34.0 - 45.0 % LAB HEMATOLOGY METHOD 11/21/2022 9:36 PM EST [facility] Platelet Count 332 155 - 369 10*3/uL LAB HEMATOLOGY METHOD 11/21/2022 9:36 PM EST [facility] MCV 91 79 - 98 fL LAB HEMATOLOGY METHOD 11/21/2022 9:36 PM EST [facility] MCH 30.5 26.0 - 32.0 pg LAB HEMATOLOGY METHOD 11/21/2022 9:36 PM EST [facility] MCHC 33.5 30.7 - 35.5 g/dL LAB HEMATOLOGY METHOD 11/21/2022 9:36 PM EST [facility] RDW 14.4 11.5 - 14.5 % LAB HEMATOLOGY METHOD 11/21/2022 9:36 PM EST [facility] MPV 8.9 8.8 - 12.5 fL LAB HEMATOLOGY METHOD 11/21/2022 9:36 PM EST [facility] nRBC 0.0 <=0.0 per 100 WBCs LAB HEMATOLOGY METHOD 11/21/2022 9:36 PM EST [facility] Differential Type Automated LAB HEMATOLOGY METHOD 11/21/2022 9:36 PM EST [facility] Neutrophils % 63.0 % LAB HEMATOLOGY METHOD 11/21/2022 9:36 PM EST [facility] Lymphocytes % 29.0 % LAB HEMATOLOGY METHOD 11/21/2022 9:36 PM EST [facility] Monocytes % 7.0 % LAB HEMATOLOGY METHOD 11/21/2022 9:36 PM EST [facility] Eosinophils % 1.0 % LAB HEMATOLOGY METHOD 11/21/2022 9:36 PM EST [facility] Basophils % 0.0 % LAB HEMATOLOGY METHOD 11/21/2022 9:36 PM [facility] Immature Granulocytes % 0.0 % LAB HEMATOLOGY METHOD 11/21/2022 9:36 PM [facility] Neutrophils Absolute 9.66(H) 1.60 - 6.10 10*3/uL LAB HEMATOLOGY METHOD 11/21/2022 9:36 PM EST [facility] Lymphocytes Absolute 4.38(H) 1.20 - 3.90 10*3/uL LAB HEMATOLOGY METHOD 11/21/2022 9:36 PM EST [facility] Monocytes Absolute 1.00(H) 0.30 - 0.90 10*3/uL LAB HEMATOLOGY METHOD 11/21/2022 9:36 PM [facility] Eosinophils Absolute 0.22 0.00 - 0.50 10*3/uL LAB HEMATOLOGY METHOD 11/21/2022 9:36 PM [facility] Basophils Absolute 0.03 0.00 - 0.10 10*3/uL LAB HEMATOLOGY METHOD 11/21/2022 9:36 PM [facility] Immature Granulocytes Absolute 0.04 0.00 - 0.06 10*3/uL LAB HEMATOLOGY METHOD 11/21/2022 9:36 PM [facility] Blood Venous blood specimen / Unknown Venipuncture / Unknown 11/21/2022 9:27 PM EST 11/21/2022 9:34 PM EST Narrative [facility] - 11/21/2022 9:36 PM EST Therapeutic decision making should be based on absolute values, rather than percentages. Radha Riddle MD LAB BLOOD ORDERABLES Final Res ult [facility] [address] [place] [address] * (ABNORMAL) Blood gas panel, venous (11/21/2022 9:27 PM EST) pH, Venous 7.37 7.32 - 7.43 LAB HEMATOLOGY METHOD 11/21/2022 9:36 PM EST [facility] pCO2, Venous 46 37 - 52 mmHg LAB HEMATOLOGY METHOD 11/21/2022 9:36 PM EST [facility] pO2, Venous 22(L) 25 - 40 mmHg LAB HEMATOLOGY METHOD 11/21/2022 9:36 PM EST [facility] SO2, Measured, Venous 39.5(L) 65 - 80 % LAB HEMATOLOGY METHOD 11/21/2022 9:36 PM EST [facility] Base Excess, Venous 0.8 -2.0 - 3.0 mmol/L LAB HEMATOLOGY METHOD 11/21/2022 9:36 PM EST [facility] Bicarbonate, Calculated, Venous 27(H) 22 - 26 mmol/L LAB HEMATOLOGY METHOD 11/21/2022 9:36 PM EST [facility] Hematocrit, Whole Blood 39.3 34.0 - 45.0 % LAB HEMATOLOGY METHOD 11/21/2022 9:36 PM EST [facility] Sodium, Whole Blood 146(H) 136 - 145 mmol/L LAB HEMATOLOGY METHOD 11/21/2022 9:36 PM EST [facility] Potassium, Whole Blood 2.9(L) 3.6 - 4.9 mmol/L LAB HEMATOLOGY METHOD 11/21/2022 9:36 PM EST [facility] Chloride, Whole Blood 111(H) 97 - 107 mmol/L LAB HEMATOLOGY METHOD 11/21/2022 9:36 PM EST [facility] Glucose, Whole Blood 84 74 - 99 mg/dL LAB HEMATOLOGY METHOD 11/21/2022 9:36 PM EST [facility] Lactate, Venous, Whole Blood 1.5 0.5 - 2.2 mmol/L LAB HEMATOLOGY METHOD 11/21/2022 9:36 PM EST [facility] Ionized Calcium, Whole Blood 4.8 4.6 - 5.1 mg/dL LAB HEMATOLOGY METHOD 11/21/2022 9:36 PM EST [facility] Blood Venous blood specimen / Unknown Venipuncture / Unknown 11/21/2022 9:27 PM EST 11/21/2022 9:34 PM EST Radha Riddle MD LAB BLOOD ORDERABLES Final Res ult Performing Organization Address [facility] de Phone Number [facility] [address] [place] [address] * hCG qualitative (11/21/2022 9:27 PM EST) Test Negative Negative 11/21/2022 10:06 PM EST [facility] Blood Venous blood specimen / Unknown Venipuncture / Unknown 11/21/2022 9:27 PM EST 11/21/2022 9:34 PM EST Narrative [facility] - 11/21/2022 10:06 PM EST Reference Range: Males and non- females: Negative. Radha Riddle MD LAB BLOOD ORDERABLES Final Res ult Performing Organization Address [facility] de Phone Number [facility] [address] [place] [address] * Ethyl Alcohol Plasma (11/21/2022 9:27 PM EST) Ethanol Plasma <10 <10 mg/dL 11/21/2022 10:21 PM EST [facility] Blood Venous blood specimen / Unknown Venipuncture / Unknown 11/21/2022 9:27 PM EST 11/21/2022 9:52 PM EST Narrative [facility] - 11/21/2022 10:21 PM EST Test performed by Gas Chromatography at the [facility]. This test was developed and its performance characteristics determined by [facility]. It has not been cleared or approved by the FDA.The laboratory is regulated under CLIA as qualified to perform high-complexity testing. This test is used for clinical purposes only. us Radha Riddle MD LAB BLOOD ORDERABLES Final Res ult Performing Organization Address City/[facility] Co de Phone Number [facility] [address] [place] [address] * Free T4, Plasma (11/21/2022 9:27 PM EST) Free T4, Plasma 1.0 0.8 - 1.7 ng/dL 11/21/2022 11:00 PM EST [facility] Blood Venous blood specimen / Unknown Venipuncture / Unknown 11/21/2022 9:27 PM EST 11/21/2022 9:34 PM EST Narrative [facility] - 11/21/2022 11:00 PM EST Free T4 Trimester Specific Ranges 1st Trimester ??0.9??- 1.50 ng/dL 2nd Trimester ??0.7 - 1.40 ng/dL 3rd Trimester ??0.7??- 1.24 ng/dL Result [facility] Radha Riddle MD LAB BLOOD ORDERABLES Final Res ult Performing Organization Address [facility] de Phone Number [facility] [address] [place] [address] * Thyroid Stimulating Hormone, Plasma (11/21/2022 9:27 PM EST) Thyroid Stimulating Hormone, Plasma 0.69 0.40 - 4.20 uIU/mL 11/21/2022 10:06 PM EST [facility] Blood Venous blood specimen / Unknown Venipuncture / Unknown 11/21/2022 9:27 PM EST 11/21/2022 9:34 PM EST Narrative [facility] - 11/21/2022 10:06 PM EST Trimester Specific Ranges ?TSH (??IU/mL) 1st Trimester ??0.1 ??- 3.0 2nd Trimester ??0.19 - 4.06 3rd Trimester ??0.3 ??- 3.7 Result [facility] Radha Riddle MD LAB BLOOD ORDERABLES Final Res ult Performing Organization Address City/[facility] Co de Phone Number [facility] [address] [place] [address] * Troponin now and 120 min (11/21/2022 9:27 PM EST) [facility] Troponin T, High Sensitivity, 0 Hour <6 <14 ng/L 11/21/2022 10:06 PM EST [facility] Blood Venous blood specimen / Unknown Venipuncture / Unknown 11/21/2022 9:27 PM EST 11/21/2022 9:34 PM EST Radha Riddle MD LAB BLOOD ORDERABLES Final Res ult [facility] [address] [place] [address] * (ABNORMAL) Magnesium (11/21/2022 9:27 PM EST) [facility] Magnesium, Plasma 1.8(L) 1.9 - 2.4 mg/dL 11/21/2022 10:15 PM EST [facility] Blood Venous blood specimen / Unknown Venipuncture / Unknown 11/21/2022 9:27 PM EST 11/21/2022 9:34 PM EST Radha Riddle MD LAB BLOOD ORDERABLES Final Res ult Performing Organization Address City/[facility]/ZIP Co de Phone Number [facility] [address] [place] [address] * (ABNORMAL) Hepatitis C Antibody - ED (11/21/2022 9:27 PM EST) [facility] Hepatitis C Antibody Positive(A ) Negative 11/21/2022 10:31 PM EST [facility] Blood Venous blood specimen / Unknown Venipuncture / Unknown 11/21/2022 9:27 PM EST 11/21/2022 9:52 PM EST Radha Riddle MD LAB BLOOD ORDERABLES Final Res ult [facility] [address] [place] [address] * (ABNORMAL) CMP (11/21/2022 9:27 PM EST) [facility] Glucose, Plasma 84 74 - 99 mg/dL 11/21/2022 10:15 PM EST [facility] BUN, Plasma 11 7 - 21 mg/dL 11/21/2022 10:15 PM [facility] Creatinine, Plasma 0.63 0.60 - 1.10 mg/dL 11/21/2022 10:15 PM [facility] BUN/Creatinine Ratio 17 11/21/2022 10:15 PM [facility] Sodium, Plasma 145 136 - 145 mmol/L 11/21/2022 10:15 PM [facility] Potassium, Plasma 3.1(L) 3.7 - 4.8 mmol/L 11/21/2022 10:15 PM [facility] Chloride, Plasma 111(H) 97 - 107 mmol/L 11/21/2022 10:15 PM [facility] CO2, Plasma 25 22 - 29 mmol/L 11/21/2022 10:15 PM [facility] Anion Gap 9 6 - 16 mmol/L 11/21/2022 10:15 PM [facility] Total Calcium, Plasma 8.9 8.9 - 10.2 mg/dL 11/21/2022 10:15 PM [facility] Total Protein 6.3 6.3 - 7.9 g/dL 11/21/2022 10:15 PM [facility] Albumin, Plasma 3.7 3.5 - 5.2 g/dL 11/21/2022 10:15 PM [facility] AST, Plasma 17 11 - 32 U/L 11/21/2022 10:15 PM [facility] ALT, Plasma 15 8 - 33 U/L 11/21/2022 10:15 PM [facility] Alkaline Phosphatase, Plasma 115(H) 35 - 104 U/L 11/21/2022 10:15 PM [facility] Total Bilirubin, Plasma <0.2(L) 0.2 - 1.1 mg/dL 11/21/2022 10:15 PM [facility] eGFRcr 122.6 mL/min/1.7 3m*2 11/21/2022 10:15 PM [facility] Comment: Reported eGFRcr in mL/min/1.73m2 is based the CKD-EPI 2020 equation that does not use a race coefficient. Effective 04/20/22 our laboratory changed the eGFR calculation to the CKD-EPI 2020 equation from the previously reported eGFR, based on the MDRD equation. ??For comparisons between the two equations, please see laboratory website: ??[email or web address] Blood Venous blood specimen / Unknown Venipuncture / Unknown 11/21/2022 9:27 PM EST 11/21/2022 9:34 PM EST us Radha Riddle MD LAB BLOOD ORDERABLES Final Res ult Performing Organization Address City/[facility]/ZIP Co de Phone Number [facility] [address] [place] [id number] * EKG now - STAT (adult) (11/21/2022 9:18 PM EST) EKG DIAGNOSIS CLASS Normal MUSE ECG Ventricular Rate 82 BPM MUSE ECG Atrial Rate 82 BPM MUSE ECG HI Interval 162 ms MUSE ECG QRSD Interval 92 ms MUSE ECG QT Interval 416 ms MUSE ECG QTC Interval 486 ms MUSE ECG P Devon 60 degrees MUSE ECG R Devon 52 degrees MUSE ECG T Wave Devon 38 degrees MUSE ECG Diagnosis Normal sinus rhythm MUSE ECG Diagnosis Normal ECG MUSE ECG Diagnosis Confirmed by Marcelina Pal ([id number]) on 11/22/2022 2:18:33 PM MUSE ECG 11/21/2022 9:18 PM EST 11/22/2022 2:18 PM EST Radha Riddle MD ECG ORDERABLES Final Result Performing Organization Address City/[facility]/ZIP Co de Phone Number MUSE ECG documented in this encounter Visit Diagnoses Diagnosis Seizure-like activity (CMS/HCC)- Primary documented in this encounter Administered Medications Inactive Administered Medications - up to 3 most recent administrations Medication Order MAR Action Action Date Dose Rate Site lactated Ringer's infusion 1,000 mL 1,000 mL, Intravenous, Once, 1 dose, On 11/21/22 at 2110, STAT New Bag 11/21/2022 9:30 PM EST 1,000 mL documented in this encounter Active and Recently Administered Medications Times are shown in EST. Scheduled Medication Order 11/20/2022 11/21/2022 11/22/2022 lactated Ringer's infusion 1,000 mL (COMPLETED) 1,000 mL, Intravenous, Once, 1 dose, On Mon11/21/22 at 2110, STAT 2130 (New Bag - Provider: Dc Guerrero)2333 (Stopped - Provider: Dc Guerrero) documented in this encounter Care Teams Quality Assurance Associate Relationship Specialty Start Date End Date Lc Hancock MD [address] [place] [address] PCP - General 02/05/21 documented as of this encounter
--- OUTSIDE RECORDS SUMMARY | 2024-08-07 10:36 | XMS_ITS | Encounter Summary ---
Author Organization Healthcare Address [address] [place] [address] Care Team Providers Care Emergency Physician Name Role Phone Lc Hancock MD Primary Care Provider [phone] Encounter Details Date Type Department Care Team (Latest Contact Info) Description 11/21/2022 Travel Social History Tobacco Use Types Packs/Day [...] on filedocumented in this encounter Care Teams Emergency Physician Relationship Specialty Start Date End Date Lc Hancock MD [address] [place] [id number] PCP - General 02/05/21 documented as of this encounter
[2024-08-07 10:56] VITALS: BP 102/48; PULSE 55; O2SAT 100
[2024-08-07] MEDS: DAPTOmycin 500 MG in 0.9 % SODIUM CHLORIDE 50 ML 100 MG IV (10:56)
[2024-08-07 11:35] VITALS: BP 98/80; PULSE 54; O2SAT 99
[2024-08-07] MEDS: SODIUM CHLORIDE 0.9% 50ML BAG 50 ML IV (11:37)
== END 2024-08-07 11:35 | disposition home or self-care (01) ==
LOC: INF 10:34
PROVIDERS: PCP Nurse Practitioner Family; Visit Provider Nurse Practitioner Family
DX: L02.91 Cutaneous abscess, unspecified (principal)
CPT/HCPCS: 96365; J0878

== ENCOUNTER 2024-08-08 10:45 | Outpatient (CLI) | payer MEDICAID, SELFPAY ==
--- OUTSIDE RECORDS SUMMARY | 2024-08-08 10:47 | XMS_ITS | Encounter Summary ---
Author Organization [facility] Address [address] [place] [address] Care Team Providers Care Service Observer Name Role Phone Provider, No Known Primary Care Provider Unavail able Reason for Referral * Cardiac (Routine) - Closed Specialty Diagnoses / Procedures Referred By Skyler t Referred To Contact Diagnoses SVT (supraventricular tachycardia) Palpitations Procedures Holter Monitor - 72 Hour Up To 15 Days Diana Holland APRN [address] [place] [address] Phone: tel: fax: [facility] [address] [place] [address] Phone: tel: Referral ID Status Reason Start Date Expiration Date Visits Re quested Visits Authorized [id number] Closed 05/15/2023 05/14/2024 1 1 Reason for Visit * Reason Comments Establish Care * Consultation (Routine) - Closed Specialty Diagnoses / Procedures Referred By Contac t Referred To Contact Cardiology Diagnoses Irregular heart rate Referring, [place], [place] [id number] [place] [address] [place] [address] Phone: tel: fax: Referral ID Status Reason Start Date Expiration Date Visits Re quested Visits Authorized [id number] Closed 05/08/2023 05/07/2024 1 1 Encounter Details Date Type Department Care Team (Late st Contact Info) Description 05/15/2023 1:00 PM EDT Office Visit [facility] CARDIOLOGY [address] [phone] Diana Holland APRN [address] [place] [address] SVT (supraventricular tachycardia) (Primary Dx); Screening for [...] - We 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 Patient reportedly has had a full cardiac work-up in the last several years, including a left heart cath at [facility]. * Diana Holland APRN - 05/15/2023 [...] recently. She was previously followed by a health care sanitary technician in [place] but recently moved back to [place]. She reports that she was taking a beta-mercedes and a cholesterol medicine in the past but has been out of that for several months. She also reports shortness of breath and occasional dizziness. She has had a full cardiac work-up in the past several years, including a left heart cath at [facility] that was reportedly normal. Patient's mother [...] - We 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 Patient reportedly has had a full cardiac work-up in the last several years, including a left heart cath at [facility]. Orders: - Holter Monitor - 72 [...] T4 (05/25/2023) Blood us Diana E Trautwein [facility] BLOOD ORDERABLES Fin al Result Performing Organization Address [facility] Phone Number [facility]
[address] [place] [address], [place] [phone] * Lipid Panel (05/25/2023) Blood Diana E Trautwein [facility] BLOOD ORDERABLES Fin al Result Performing Organization Address [facility] Phone Number [facility]
[address] [place] [address], [place] [phone] * CBC & Differential (05/25/2023) Blood Diana E Trautwein [facility] BLOOD ORDERABLES Fin al Result Performing Organization Address [facility] Phone Number [facility]
[address] [place] [address], [place] [phone] * Comprehensive Metabolic Panel (05/25/2023) Blood Diana E Trautwein [facility] BLOOD ORDERABLES Fin al Result Performing Organization Address [facility] de Phone Number [facility]
[address] [place] [address], [place] [phone] * HOLTER MONITOR >48HRS UP TO 7 [...] this exam include Supraventricular tachycardia. Total beats: [id number]. Average HR: 86. Min HR: 46. Max HR: 179. Study Impressions A relatively benign monitor study. Nonsustained SVT. See raw data for further information. us Diana Holland APRN [facility] ORDShay JONES Final Result * ECG 12-LEAD (05/15/2023 1:21 PM EDT) Narrative [facility] Rep - 05/15/2023 1:21 PM EDT Diana oHlland APRN ? 05/15/2023 ??9:32 PM ECG 12 [...] palpitations recently. She was previouslyfollowed by a health care sanitary technician in [place] but recently moved back to [place].She reports that she was taking a beta-mercedes and a cholesterol medicinein the past but has been out of that for several months. She also reportsshortness of breath and occasional dizziness. She has had a full cardiacwork-up in the past several years, including a left heart cath at [facility] that was reportedly normal. Patient's mother [...] (66 ) Wt 88.5 kg (195 lb) RnI252% BMI 33.47 kg/m?? Estimated body mass index [...] - We 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Patient reportedly has had a full cardiac work-up in the last severalyears, including a left heart cath at [facility]. Orders: - Holter Monitor - 72 [...] Palpitations documented in this encounter Care Teams Service Observer Relationship Specialty Start Date End Date Provider, [place] [address] PCP - General 05/15/23 documented as of this encounter
--- OUTSIDE RECORDS SUMMARY | 2024-08-08 10:47 | XMS_ITS | Clinical Summary ---
Author Organization Healthcare Address [address] [place] [address] Care Team Providers Care Hand Bender Name Role Phone Lc Hancock MD Primary Care Provider [phone] Allergies No known active allergies Medications No [...] 2013 [facility]-Cervical Cancer Screening 2022 [facility]HPV/Cotest 2022 [id number] Vaccine (3 - 2022-24 season) 2024 02/24/2021, [...] Final Res ult [facility] [address] [place] [address] * (ABNORMAL) Hepatitis C Antibody - ED (11/21/2022 9:27 PM EST) Pathologist [facility] Hepatitis C Antibody Positive(A ) Negative 11/21/2022 10:31 PM EST [facility] Blood Venous blood specimen / Unknown Venipuncture / Unknown 11/21/2022 9:27 PM EST 11/21/2022 9:52 PM EST Trent Riddle MD LAB BLOOD ORDERABLES Final Res ult [facility] [address] [place] [address] from Last 3 Months or Most Recently Relevant to Health Maintenance Insurance MEDICAID Care Teams Hand Bender Relationship Specialty Start Date End Date Lc Hancock MD [address] [id number] PCP - General 02/05/21
--- OUTSIDE RECORDS SUMMARY | 2024-08-08 10:47 | XMS_ITS | Clinical Summary ---
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 Patient reportedly has had a full cardiac work-up in the last several years, including a left heart cath at [facility]. Palpitations 05/15/2023 Screening for lipid disorders 05/15/2023 [...] APRN LAB BLOOD ORDERABLES Fin al Result [facility]
[address] [place] [address], from Last 3 Months or Most Recently Relevant to Health Maintenance Insurance [employer] Care Teams Air Carrier Operations Inspector Relationship Specialty Start Date End Date Provider, No Known [facility] [place] [address] PCP - General 05/15/23
--- OUTSIDE RECORDS SUMMARY | 2024-08-08 10:47 | XMS_ITS | Encounter Summary ---
Author Organization [facility] Address [address] [place] [address] Care Team Providers Care Boiler Out Name Role Phone Provider, No Known Primary Care Provider Unavail able Reason for Visit * Reason Comments Rapid Heart Rate Encounter Details Date Type Department Care Team (Latest Contact Info) Description 06/15/2023 1:30 PM EDT Office Visit [facility] [address] [id number] Diana Holland APRN [address] [place] [address] SVT (supraventricular tachycardia) (Primary Dx); Other [...] recently. She was previously followed by a choir singer in [place] but recently moved back to [place]. She reports that she was taking a beta-mercedes and a cholesterol medicine in [facility] but has been out of that for several months. She also reports shortness of breath and occasional dizziness. She has had a full cardiac work-up in the past several years, including a left heart cath at [facility] that was reportedly normal. Holter monitor from [...] hyperlipidemia documented in this encounter Care Teams Boiler Out Relationship Specialty Start Date End Date Provider, [place] [address] PCP - General 05/15/23 documented as of this encounter
--- OUTSIDE RECORDS SUMMARY | 2024-08-08 10:47 | XMS_ITS | Encounter Summary ---
Author Organization [facility] Address [address] [place] [address] Care Team Providers Care Service Station Helper Name Role Phone Provider, No Known Primary Care Provider Unavail able Reason for Visit * Cardiac (Routine) - Closed Specialty Diagnoses / Procedures Referred By Contac t Referred To Contact Diagnoses SVT (supraventricular tachycardia) Palpitations Procedures Holter Monitor - 72 Hour Up To 15 Days Diana Holland APRN [address] [place] [address] Phone: tel: fax: [employer] [address] [facility] [address] Phone: tel: Referral ID Status Reason Start Date Expiration Date Visits Re quested Visits Authorized [id number] Closed 05/15/2023 05/14/2024 1 1 Encounter Details Date Type Department Care Team (Late st Contact Info) Description 05/15/2023 1:30 PM EDT Ancillary Procedure [facility] [address] [id number] Social History Tobacco Use Types Packs/Day Years [...] this exam include Supraventricular tachycardia. Total beats: 840241. Average HR: 86. Min HR: 46. Max HR: 179. Study Impressions A relatively benign monitor study. Nonsustained SVT. See raw data for further information. us Diana Holland APRN [facility] Final Result documented in this encounter Visit Diagnoses Not on filedocumented in this encounter Care Teams Service Station Helper Relationship Specialty Start Date End Date Provider, [place] [address] PCP - General 05/15/23 documented as of this encounter
--- OUTSIDE RECORDS SUMMARY | 2024-08-08 10:48 | XMS_ITS | Encounter Summary ---
Author Organization Healthcare Address [address] [place] [address] Care Team Providers Care Obstetrics Gyn Physician Name Role Phone Lc Hancock MD Primary Care Provider [phone] Reason for Visit * Reason Comments Wound Check Encounter Details Date Type Department Care Team (Late st Contact Info) Description 12/09/2023 9:32 PM EDT - 12/09/2023 10:45 PM EDT Emergency [facility] [address] [place] [address] Discharge Disposition: Left WIthout Being Seen Social [...] on filedocumented in this encounter Care Teams Obstetrics Gyn Physician Relationship Specialty Start Date End Date Lc Hancock MD [address] [place] [address] PCP - General 02/05/21 documented as of this encounter
--- OUTSIDE RECORDS SUMMARY | 2024-08-08 10:48 | XMS_ITS | Encounter Summary ---
Author Organization [facility] Address [address] [place] [address] Care Team Providers Care Butcher Fish Name Role Phone Lc Hancock MD Primary Care Provider [phone] Encounter Details Date Type Department Care Team [...] on filedocumented in this encounter Care Teams Butcher Fish Relationship Specialty Start Date End Date Lc Hancock MD [address] [place] [id number] PCP - General 02/05/21 documented as of this encounter
--- OUTSIDE RECORDS SUMMARY | 2024-08-08 10:48 | XMS_ITS | Encounter Summary ---
Author Organization [facility] Address [address] [place] [address] Care Team Providers Care Assistant Manager Quality Management Name Role Phone Lc Hancock MD Primary Care Provider [phone] Encounter Details Date Type Department Care Team [...] on filedocumented in this encounter Care Teams Assistant Manager Quality Management Relationship Specialty Start Date End Date Lc Hancock MD [address] [place] [id number] PCP - General 02/05/21 documented as of this encounter
--- OUTSIDE RECORDS SUMMARY | 2024-08-08 10:48 | XMS_ITS | Encounter Summary ---
Author Organization [facility] Address [address] [place] [address] Care Team Providers Care Photo Finisher Name Role Phone Lc Hancock MD Primary Care Provider [phone] Encounter Details Date Type Department Care Team [...] on filedocumented in this encounter Care Teams Photo Finisher Relationship Specialty Start Date End Date Lc Hancock MD [address] [place], [place] [id number] PCP - General 02/05/21 documented as of this encounter
--- OUTSIDE RECORDS SUMMARY | 2024-08-08 10:48 | XMS_ITS | Encounter Summary ---
Author Organization Healthcare Address [address] [place] [address] Care Team Providers Care Hairspring Studder Name Role Phone Lc Hancock MD Primary Care Provider [phone] Reason for Visit * Reason Comments Seizures Shortness of Breath Encounter Details Date Type Department Care Team ([facility] st Contact Info) Description 11/21/2022 8:30 PM EST - 11/22/2022 2:42 AM EST Emergency PAV A Emergency Department [address] [place] [address] Radha Riddle MD [address] [place] [phone] Teo Martin MD [address] [place] [phone] Seizure-like activity (CMS/HCC) (Primary Dx) Discharge [...] Disposition - Gregg Baldwin DO Resident 11/21/22 [id number] Cosigned by Radha Riddle MD at 11/23/2022 [...] for some time. Patient was seen at [facility] last night and discharged home, patient states she has an appointment with a doctor's assistant in the morning but does not know [...] WO IV CONTRAST ordered by RADHA RIDDLE, [id number] CLINICAL INDICATION: seizure TECHNIQUE: Routine contiguous axial [...] WO IV CONTRAST ordered by RADHA RIDDLE, [id number] CLINICAL INDICATION: seizure TECHNIQUE: Routine contiguous axial [...] <6 <14 ng/L 11/21/2022 11:49 PM EST [facility] Troponin Delta Interpretation Not Calculated 11/21/2022 11:49 PM EST [facility] Comment:Specimen not collect ed within acceptable timeframe. Delta will not be calculated. Blood Venous blood specimen / Unknown Venipuncture / Unknown 11/21/2022 11:25 PM EST 11/21/2022 11:28 PM EST Radha Riddle MD LAB BLOOD ORDERABLES Final Res ult Performing Organization Address City/[facility] Co de Phone Number [facility] [address] [place] [address] * Methadone Confirm LCMSMS (11/21/2022 9:56 PM EST) Methadone <50 <50 ng/mL 11/23/2022 2:11 PM EST [facility] EDDP - Methadone Metabolite <50 <50 ng/mL 11/23/2022 2:11 PM EST [facility] Urine Urine specimen obtained by clean catch procedure / Unknown Non-blood Collection / Unknown 11/21/2022 9:56 PM EST 11/21/2022 10:01 PM EST Narrative [facility] - 11/23/2022 2:11 PM EST Drug analysis is confirmed by LC-MS/MS (LC Tandem Mass Spectrometry) on Urine specimens. ?? This test was developed and its performance characteristics determined by [facility]. It has not been cleared or approved by the FDA. The laboratory is regulated under CLIA as qualified to perform high-complexity testing. This test is used for clinical purposes. Testing is performed at the [facility]. Radha Riddle MD LAB URINE ORDERABLES Final Res ult Performing Organization Address [facility] Co de Phone Number [facility] [address] [place] [address] * (ABNORMAL) Cocaine Metabolite Confirm Urine (11/21/2022 9:56 PM EST) Benzoylecgonine >1,000(H) <50 ng/mL 2:10 PM EST [facility] Urine Urine specimen obtained by clean catch procedure / Unknown Non-blood Collection / Unknown 11/21/2022 9:56 PM EST 11/21/2022 10:01 PM EST Narrative [facility] - 11/23/2022 2:10 PM EST Drug analysis is confirmed by LC-MS/MS (LC Tandem Mass Spectrometry) on Urine specimens. ?? This test was developed and its performance characteristics determined by [facility]. It has not been cleared or approved by the FDA. The laboratory is regulated under CLIA as qualified to perform high-complexity testing. This test is used for clinical purposes. Testing is performed at the [facility]. Radha Riddle MD LAB URINE ORDERABLES Final Res ult Performing Organization Address [facility] de Phone Number [facility] [address] [place] [address] * (ABNORMAL) THC Urine Confirm LCMSMS (11/21/2022 9:56 PM EST) 9 Carboxy THC 22(H) <10 ng/mL 11/23/2022 2:09 PM EST [facility] 9 Carboxy THC Glucuronide 330(H) <25 ng/mL 11/23/2022 2:09 PM EST [facility] Urine Urine specimen obtained by clean catch procedure / Unknown Non-blood Collection / Unknown 11/21/2022 9:56 PM EST 11/21/2022 10:01 PM EST Narrative [facility] - 11/23/2022 2:09 PM EST Drug analysis is confirmed by LC-MS/MS (LC Tandem Mass Spectrometry) on Urine specimens. ?? This test was developed and its performance characteristics determined by [facility]. It has not been cleared or approved by the FDA. The laboratory is regulated under CLIA as qualified to perform high-complexity testing. This test is used for clinical purposes. Testing is performed at the [facility]. us Radha Riddle MD LAB URINE ORDERABLES Final Res ult Performing Organization Address [facility] Co de Phone Number [facility] [address] [place] [address] * Urinalysis Microscopic Examination (11/21/2022 9:56 PM EST) Urine Urine specimen obtained by clean catch procedure / Unknown Non-blood Collection / Unknown 11/21/2022 9:56 PM EST 11/21/2022 10:01 PM EST Radha Riddle MD LAB URINE ORDERABLES Final Res ult [facility] [address] [place] [id number] * Drug abuse screen (11/21/2022 9:56 PM EST) Amphetamine Screen Urine Negative Cutoff: 500 ng/mL 11/21/2022 10:34 PM EST [facility] Benzodiazepines Screen Urine Negative Cutoff: 200 ng/mL 11/21/2022 10:34 PM EST [facility] Cannabinoid Screen Urine Presumptive positive. Confirmation by LC-MS/MS to follow. Cutoff: 50 ng/mL 11/21/2022 10:34 PM EST [facility] Cocaine Screen Urine Presumptive positive. Confirmation by LC-MS/MS to follow. Cutoff: 300 ng/mL 11/21/2022 10:34 PM EST [facility] Barbiturate Screen Urine Negative Cutoff: 200 ng/mL 11/21/2022 10:34 PM EST [facility] Opiate Screen Urine Negative Cutoff: 300 ng/mL 11/21/2022 10:34 PM EST [facility] Methadone Screen Urine Presumptive positive. Confirmation by LC-MS/MS to follow. Cutoff: 300 ng/mL 11/21/2022 10:34 PM EST [facility] Buprenorphine Screen Urine Negative Cutoff: 10 ng/mL 11/21/2022 10:34 PM EST [facility] Fentanyl Screen Urine Negative Cutoff: 1 ng/mL 11/21/2022 10:34 PM EST [facility] Oxycodone Screen Urine Negative Cutoff: 100 ng/mL 11/21/2022 10:34 PM EST [facility] Urine Urine specimen obtained by clean catch procedure / Unknown Non-blood Collection / Unknown 11/21/2022 9:56 PM EST 11/21/2022 10:01 PM EST Radha Riddle MD LAB URINE ORDERABLES Final Res ult [facility] [address] [place] [address] * (ABNORMAL) Urinalysis with reflex microscopic (11/21/2022 9:56 PM EST) Color, Urine Yellow LAB URINALYSIS - AUTOMATED METHOD 11/21/2022 11:46 PM EST [facility] Clarity, Urine Cloudy LAB URINALYSIS - AUTOMATED METHOD 11/21/2022 11:46 PM EST [facility] Spec [place], Urine 1.011 <=1.005 to >=1.030 LAB URINALYSIS - AUTOMATED METHOD 11/21/2022 11:46 PM EST [facility] pH, Urine 6.0 4.5 to 8 LAB URINALYSIS - AUTOMATED METHOD 11/21/2022 11:46 PM EST [facility] Protein, Urine Negative Negative mg/dL LAB URINALYSIS - AUTOMATED METHOD 11/21/2022 11:46 PM EST [facility] Glucose, Urine Negative Negative mg/dL LAB URINALYSIS - AUTOMATED METHOD 11/21/2022 11:46 PM EST [facility] Ketones, Urine Negative Negative mg/dL LAB URINALYSIS - AUTOMATED METHOD 11/21/2022 11:46 PM EST [facility] Blood, Urine Negative Negative LAB URINALYSIS - AUTOMATED METHOD 11/21/2022 11:46 PM EST [facility] Bilirubin, Urine Negative Negative LAB URINALYSIS - AUTOMATED METHOD 11/21/2022 11:46 PM EST [facility] Urobilinogen, Urine 1.0 0.2 to 1.0 mg/dL LAB URINALYSIS - AUTOMATED METHOD 11/21/2022 11:46 PM EST [facility] Leukocytes, Urine Large(A) Negative LAB URINALYSIS - AUTOMATED METHOD 11/21/2022 11:46 PM EST [facility] Nitrite, Urine Negative Negative LAB URINALYSIS - AUTOMATED METHOD 11/21/2022 11:46 PM EST [facility] RBC, Urine 2 0 to 3 /HPF LAB URINALYSIS - AUTOMATED METHOD 11/21/2022 11:46 PM EST [facility] Comment:This result was prev iously suppressed [...] Trichomonas Present Absent 11/21/2022 11:46 PM EST [facility] Comment:This result was prev iously suppressed from the chart. Yeast (Budding and/or Pseudohyphae) Present(A) Absent 11/21/2022 11:46 PM EST [facility] Comment:This result was prev iously suppressed from the chart. Urine Urine specimen obtained by clean catch procedure / Unknown Non-blood Collection / Unknown 11/21/2022 9:56 PM EST 11/21/2022 10:01 PM EST Narrative [facility] - 11/21/2022 11:46 PM EST Performed by manual method us Radha Riddle MD LAB URINE ORDERABLES Final Res ult [facility] [address] [place] [id number] * XR Chest 1 View (11/21/2022 9:31 [...] CHEST 1 VIEW ordered by RADHA RIDDLE, [id number] CLINICAL INDICATION: ? seizure TECHNIQUE: XR CHEST 1 VIEW COMPARISON: None. FINDINGS: No consolidation or evidence of a significant effusion. No appreciable pneumothorax. Borderline cardiomegaly, with unremarkable cardiac and mediastinal contours. No free subdiaphragmatic gas. No acute osseous findings. Procedure Note Carter Hanson MD - 11/21/2022 Exam/Procedure: XR CHEST 1 VIEW ordered by RADHA RIDDLE, [id number] CLINICAL INDICATION: ? seizure TECHNIQUE: XR CHEST [...] LAB - 11/22/2022 12:23 PM EST The [employer] M2000 HCV test is a Real Time [...] ORDERABLES Final Res ult Performing Organization Address [facility] de Phone Number [facility] [address] [place] [address] * Salicylate level (11/21/2022 9:27 PM EST) Salicylate, Quantitative, Plasma <1.0 <25 mg/dL mg/dL 11/21/2022 9:56 PM EST [facility] Blood Venous blood specimen / Unknown Venipuncture / Unknown 11/21/2022 9:27 PM EST 11/21/2022 9:34 PM EST Narrative [facility] - 11/21/2022 9:56 PM EST Therapeutic Range: ? <25 mg/dL Supratherapeutic Level: ??>30 mg/dL Radha Riddle MD LAB BLOOD ORDERABLES Final Res ult Performing Organization Address [facility] de Phone Number [facility] [address] [place] [address] * (ABNORMAL) Acetaminophen, Quantitative, Plasma (11/21/2022 9:27 [...] ORDERABLES Final Res ult Performing Organization Address City/[facility]/ZIP Co de Phone Number [facility] [address] [place] [address] * HIV 1 & 2 Antibody/Antigen Screen (11/21/2022 9:27 PM EST) Pathologist [facility] HIV 1 & 2 Antibody/Antigen Screen Non Reactive Non Reactive 11/21/2022 10:28 PM EST [facility] Comment:Screening for HIV 1 & 2 antibodies, and P24 antigen is NONREACTIVE. No confirmatory testing is required. Blood Venous blood specimen / Unknown Venipuncture / Unknown 11/21/2022 9:27 PM EST 11/21/2022 9:52 PM EST Radha Riddle MD LAB BLOOD ORDERABLES Final Res ult Performing Organization Address [facility] Co de Phone Number [facility] [address] [place] [phone] * (ABNORMAL) CBC w/diff (11/21/2022 9:27 PM EST) Pathologist [facility] WBC Count 15.33(H) 3.70 - 10.30 10*3/uL LAB HEMATOLOGY METHOD 11/21/2022 9:36 PM EST [facility] RBC Count 4.03 3.90 - 5.20 10*6/uL LAB HEMATOLOGY METHOD 11/21/2022 9:36 PM EST [facility] HGB 12.3 11.2 - 15.7 g/dL LAB HEMATOLOGY METHOD 11/21/2022 9:36 PM EST [facility] HCT 36.7 34.0 - 45.0 % LAB HEMATOLOGY METHOD 11/21/2022 9:36 PM EST [facility] Platelet Count 332 155 - 369 10*3/uL LAB HEMATOLOGY METHOD 11/21/2022 9:36 PM EST [facility] MCV 91 79 - 98 fL LAB HEMATOLOGY METHOD 11/21/2022 9:36 PM EST [facility] MCH 30.5 26.0 - 32.0 pg LAB HEMATOLOGY METHOD 11/21/2022 9:36 PM EST [facility] MCHC 33.5 30.7 - 35.5 g/dL LAB HEMATOLOGY METHOD 11/21/2022 9:36 PM EST [facility] RDW 14.4 11.5 - 14.5 % LAB HEMATOLOGY METHOD 11/21/2022 9:36 PM EST [facility] MPV 8.9 8.8 - 12.5 fL LAB HEMATOLOGY METHOD 11/21/2022 9:36 PM EST [facility] nRBC 0.0 <=0.0 per 100 WBCs LAB HEMATOLOGY METHOD 11/21/2022 9:36 PM EST [facility] Differential Type Automated LAB HEMATOLOGY METHOD 11/21/2022 9:36 PM EST [facility] Neutrophils % 63.0 % LAB HEMATOLOGY METHOD 11/21/2022 9:36 PM EST [facility] Lymphocytes % 29.0 % LAB HEMATOLOGY METHOD 11/21/2022 9:36 PM EST [facility] Monocytes % 7.0 % LAB HEMATOLOGY METHOD 11/21/2022 9:36 PM EST [facility] Eosinophils % 1.0 % LAB HEMATOLOGY METHOD 11/21/2022 9:36 PM EST [facility] Basophils % 0.0 % LAB HEMATOLOGY METHOD 11/21/2022 9:36 PM [facility] Immature Granulocytes % 0.0 % LAB HEMATOLOGY METHOD 11/21/2022 9:36 PM [facility] Neutrophils Absolute 9.66(H) 1.60 - 6.10 10*3/uL LAB HEMATOLOGY METHOD 11/21/2022 9:36 PM EST [facility] Lymphocytes Absolute 4.38(H) 1.20 - 3.90 10*3/uL LAB HEMATOLOGY METHOD 11/21/2022 9:36 PM EST [facility] Monocytes Absolute 1.00(H) 0.30 - 0.90 10*3/uL LAB HEMATOLOGY METHOD 11/21/2022 9:36 PM [facility] Eosinophils Absolute 0.22 0.00 - 0.50 10*3/uL LAB HEMATOLOGY METHOD 11/21/2022 9:36 PM [facility] Basophils Absolute 0.03 0.00 - 0.10 10*3/uL LAB HEMATOLOGY METHOD 11/21/2022 9:36 PM [facility] Immature Granulocytes Absolute 0.04 0.00 - 0.06 10*3/uL LAB HEMATOLOGY METHOD 11/21/2022 9:36 PM [facility] Blood Venous blood specimen / Unknown Venipuncture / Unknown 11/21/2022 9:27 PM EST 11/21/2022 9:34 PM EST Narrative [facility] - 11/21/2022 9:36 PM EST Therapeutic decision making should be based on absolute values, rather than percentages. Radha Riddle MD LAB BLOOD ORDERABLES Final Res ult [facility] [address] [place] [address] * (ABNORMAL) Blood gas panel, venous (11/21/2022 9:27 PM EST) pH, Venous 7.37 7.32 - 7.43 LAB HEMATOLOGY METHOD 11/21/2022 9:36 PM EST [facility] pCO2, Venous 46 37 - 52 mmHg LAB HEMATOLOGY METHOD 11/21/2022 9:36 PM EST [facility] pO2, Venous 22(L) 25 - 40 mmHg LAB HEMATOLOGY METHOD 11/21/2022 9:36 PM EST [facility] SO2, Measured, Venous 39.5(L) 65 - 80 % LAB HEMATOLOGY METHOD 11/21/2022 9:36 PM EST [facility] Base Excess, Venous 0.8 -2.0 - 3.0 mmol/L LAB HEMATOLOGY METHOD 11/21/2022 9:36 PM EST [facility] Bicarbonate, Calculated, Venous 27(H) 22 - 26 mmol/L LAB HEMATOLOGY METHOD 11/21/2022 9:36 PM EST [facility] Hematocrit, Whole Blood 39.3 34.0 - 45.0 % LAB HEMATOLOGY METHOD 11/21/2022 9:36 PM EST [facility] Sodium, Whole Blood 146(H) 136 - 145 mmol/L LAB HEMATOLOGY METHOD 11/21/2022 9:36 PM EST [facility] Potassium, Whole Blood 2.9(L) 3.6 - 4.9 mmol/L LAB HEMATOLOGY METHOD 11/21/2022 9:36 PM EST [facility] Chloride, Whole Blood 111(H) 97 - 107 mmol/L LAB HEMATOLOGY METHOD 11/21/2022 9:36 PM EST [facility] Glucose, Whole Blood 84 74 - 99 mg/dL LAB HEMATOLOGY METHOD 11/21/2022 9:36 PM EST [facility] Lactate, Venous, Whole Blood 1.5 0.5 - 2.2 mmol/L LAB HEMATOLOGY METHOD 11/21/2022 9:36 PM EST [facility] Ionized Calcium, Whole Blood 4.8 4.6 - 5.1 mg/dL LAB HEMATOLOGY METHOD 11/21/2022 9:36 PM EST [facility] Blood Venous blood specimen / Unknown Venipuncture / Unknown 11/21/2022 9:27 PM EST 11/21/2022 9:34 PM EST Radha Riddle MD LAB BLOOD ORDERABLES Final Res ult Performing Organization Address [facility] de Phone Number [facility] [address] [place] [address] * hCG qualitative (11/21/2022 9:27 PM EST) Test Negative Negative 11/21/2022 10:06 PM EST [facility] Blood Venous blood specimen / Unknown Venipuncture / Unknown 11/21/2022 9:27 PM EST 11/21/2022 9:34 PM EST Narrative [facility] - 11/21/2022 10:06 PM EST Reference Range: Males and non- females: Negative. Radha Riddle MD LAB BLOOD ORDERABLES Final Res ult Performing Organization Address [facility] de Phone Number [facility] [address] [place] [address] * Ethyl Alcohol Plasma (11/21/2022 9:27 PM EST) Ethanol Plasma <10 <10 mg/dL 11/21/2022 10:21 PM EST [facility] Blood Venous blood specimen / Unknown Venipuncture / Unknown 11/21/2022 9:27 PM EST 11/21/2022 9:52 PM EST Narrative [facility] - 11/21/2022 10:21 PM EST Test performed by Gas Chromatography at the [facility]. This test was developed and its performance characteristics determined by [facility]. It has not been cleared or approved by the FDA.The laboratory is regulated under CLIA as qualified to perform high-complexity testing. This test is used for clinical purposes only. us Radha Riddle MD LAB BLOOD ORDERABLES Final Res ult Performing Organization Address City/[facility] Co de Phone Number [facility] [address] [place] [address] * Free T4, Plasma (11/21/2022 9:27 PM [...] ng/dL 3rd Trimester ??0.7??- 1.24 ng/dL Result [facility] Radha Riddle MD LAB BLOOD ORDERABLES Final Res ult Performing Organization Address [facility] de Phone Number [facility] [address] [place] [address] * Thyroid Stimulating Hormone, Plasma (11/21/2022 9:27 [...] 4.06 3rd Trimester ??0.3 ??- 3.[address] [facility] Radha Riddle MD LAB BLOOD ORDERABLES Final Res ult Performing Organization Address City/[facility] Co de Phone Number [facility] [address] [place] [address] * Troponin now and 120 min (11/21/2022 9:27 PM EST) [facility] Troponin T, High Sensitivity, 0 Hour <6 <14 ng/L 11/21/2022 10:06 PM EST [facility] Blood Venous blood specimen / Unknown Venipuncture / Unknown 11/21/2022 9:27 PM EST 11/21/2022 9:34 PM EST Radha Riddle MD LAB BLOOD ORDERABLES Final Res ult [facility] [address] [place] [address] * (ABNORMAL) Magnesium (11/21/2022 9:27 PM EST) [facility] Magnesium, Plasma 1.8(L) 1.9 - 2.4 mg/dL 11/21/2022 10:15 PM EST [facility] Blood Venous blood specimen / Unknown Venipuncture / Unknown 11/21/2022 9:27 PM EST 11/21/2022 9:34 PM EST Radha Riddle MD LAB BLOOD ORDERABLES Final Res ult Performing Organization Address [facility]/ZIP Co de Phone Number [facility] [address] [place] [address] * (ABNORMAL) Hepatitis C Antibody - ED (11/21/2022 9:27 PM EST) [facility] Hepatitis C Antibody Positive(A ) Negative 11/21/2022 10:31 PM EST [facility] Blood Venous blood specimen / Unknown Venipuncture / Unknown 11/21/2022 9:27 PM EST 11/21/2022 9:52 PM EST Radha Riddle MD LAB BLOOD ORDERABLES Final Res ult [facility] [address] [place] [address] * (ABNORMAL) CMP (11/21/2022 9:27 PM EST) [facility] Glucose, Plasma 84 74 - 99 mg/dL 11/21/2022 10:15 PM EST [facility] BUN, Plasma 11 7 - 21 mg/dL 11/21/2022 10:15 PM [facility] Creatinine, Plasma 0.63 0.60 - 1.10 mg/dL 11/21/2022 10:15 PM [facility] BUN/Creatinine Ratio 17 11/21/2022 10:15 PM [facility] Sodium, Plasma 145 136 - 145 mmol/L 11/21/2022 10:15 PM [facility] Potassium, Plasma 3.1(L) 3.7 - 4.8 mmol/L 11/21/2022 10:15 PM [facility] Chloride, Plasma 111(H) 97 - 107 mmol/L 11/21/2022 10:15 PM [facility] CO2, Plasma 25 22 - 29 mmol/L 11/21/2022 10:15 PM [facility] Anion Gap 9 6 - 16 mmol/L 11/21/2022 10:15 PM [facility] Total Calcium, Plasma 8.9 8.9 - 10.2 mg/dL 11/21/2022 10:15 PM [facility] Total Protein 6.3 6.3 - 7.9 g/dL 11/21/2022 10:15 PM [facility] Albumin, Plasma 3.7 3.5 - 5.2 g/dL 11/21/2022 10:15 PM [facility] AST, Plasma 17 11 - 32 U/L 11/21/2022 10:15 PM [facility] ALT, Plasma 15 8 - 33 U/L 11/21/2022 10:15 PM [facility] Alkaline Phosphatase, Plasma 115(H) 35 - 104 U/L 11/21/2022 10:15 PM [facility] Total Bilirubin, Plasma <0.2(L) 0.2 - 1.1 mg/dL 11/21/2022 10:15 PM [facility] eGFRcr 122.6 mL/min/1.7 3m*2 11/21/2022 10:15 PM [facility] Comment: Reported eGFRcr in mL/min/1.73m2 is based the CKD-EPI 2020 equation that does not use a race coefficient. Effective 04/20/22 our laboratory changed the eGFR calculation to the CKD-EPI 2020 equation from the previously reported eGFR, based on the MDRD equation. ??For comparisons between the two equations, please see laboratory website: ??[email or web address]/[facility] Blood Venous blood specimen / Unknown Venipuncture / Unknown 11/21/2022 9:27 PM EST 11/21/2022 9:34 PM EST us Radha Riddle MD LAB BLOOD ORDERABLES Final Res ult Performing Organization Address City/[facility]/ZIP Co de Phone Number [facility] [address] [place] [phone] * EKG now - STAT (adult) (11/21/2022 9:18 PM EST) EKG DIAGNOSIS CLASS Normal MUSE ECG Ventricular Rate 82 BPM MUSE ECG Atrial Rate 82 BPM MUSE ECG MS Interval 162 ms MUSE ECG QRSD Interval 92 ms MUSE ECG QT Interval 416 ms MUSE ECG QTC Interval 486 ms MUSE ECG P [place] 60 degrees MUSE ECG R [place] 52 degrees MUSE ECG T Wave [place] 38 degrees MUSE ECG Diagnosis Normal sinus rhythm MUSE ECG Diagnosis Normal ECG MUSE ECG Diagnosis Confirmed by Marcelina Pal ([id number]) on 11/22/2022 2:18:33 PM MUSE ECG 11/21/2022 9:18 PM EST 11/22/2022 2:18 PM EST Radha Riddle MD ECG ORDERABLES Final Result Performing Organization Address City/[facility]/ZIP Co de Phone Number MUSE ECG documented [...] Guerrero) documented in this encounter Care Teams Hairspring Studder Relationship Specialty Start Date End Date Lc Hancock MD [address] [place] [address] PCP - General 02/05/21 documented as of this encounter
[2024-08-08 11:04] VITALS: BP 105/69; PULSE 62; RESP 14; TEMP 36.5; O2SAT 100
[2024-08-08] MEDS: DAPTOmycin 500 MG in 0.9 % SODIUM CHLORIDE 50 ML 100 MG IV (11:04)
[2024-08-08] MEDS: SODIUM CHLORIDE 0.9% 10ML FLUSH SYRINGE 10 ML IV (11:04)
[2024-08-08] MEDS: SODIUM CHLORIDE 0.9% 50ML BAG 50 ML IV (11:04)
[2024-08-08 11:45] VITALS: BP 114/67; PULSE 52; RESP 14; TEMP 36.5; O2SAT 99
== END 2024-08-08 11:48 | disposition home or self-care (01) ==
LOC: INF 10:46
PROVIDERS: PCP Nurse Practitioner Family; Visit Provider Nurse Practitioner Family
DX: L02.91 Cutaneous abscess, unspecified (principal)
CPT/HCPCS: 96365; J0878

== ENCOUNTER 2024-08-08 16:46 | Emergency (ER) | payer MEDICAID, SELFPAY ==
[2024-08-08] VITALS (8 sets, daily range): BP systolic 108–133; BP diastolic 62–83; PULSE 53–73; RESP 18; TEMP 36.5–36.6; O2SAT 96–100; BMI 34.3
--- NOTE | 2024-08-08 16:50 | HMH.EDGENADL ---
Discharge Plan Prescriptions Prescriptions: No Action ondansetron 8 mg tablet,disintegrating 8 mg PO Q12H Qty: 30 0RF metoprolol succinate 100 mg tablet extended release 24 hr 100 mg PO DAILY Patient Comments: TAKE 1 TABLET BY MOUTH ONCE DAILY oxcarbazepine 300 mg tablet 300 mg PO DAILY amitriptyline 25 mg tablet 25 mg PO HS Patient Comments: TAKE 1 TABLET BY MOUTH ONCE DAILY AT BEDTIME mirtazapine 30 mg tablet 30 mg PO HS Patient Comments: TAKE 1 TABLET BY MOUTH ONCE DAILY AT BEDTIME furosemide 20 mg tablet 20 mg PO DAILY Patient Comments: TAKE 1 TABLET BY MOUTH ONCE DAILY NEEDED FOR EDEMA aripiprazole 10 mg tablet 10 mg PO DAILY Patient Comments: TAKE 1 TABLET BY MOUTH ONCE DAILY sofosbuvir-velpatasvir 400-100 mg tablet 1 tab PO DAILY Patient Comments: TAKE ONE TABLET BY MOUTH EVERY DAY Caplyta 42 mg capsule 42 mg PO DAILY Patient Comments: TAKE 1 CAPSULE BY MOUTH ONCE DAILY sulfamethoxazole-trimethoprim [Bactrim DS] 800-160 mg Tablet 1 tab PO BID 10 Days Qty: 20 0RF cephalexin 500 mg capsule 500 mg PO QID Qty: 40 0RF mupirocin 2 % ointment 1 applic topical TID 7 Days Qty: 15 0RF drvzgiydczbdaho-rvithyeft-YE [Bromfed DM] 2-30-10 mg/5 mL Syrup 5 ml PO Q6H PRN (Reason: Cough) Qty: 240 0RF Referrals Follow up/Referrals: Provider,Referral, MD [Primary Care Provider] - See instructions Activity Restrictions/Add. Instructions Additional Instructions/Restrictions: Follow-up with your primary care physician. Continue to eat well to keep your blood sugar from going low. Hydrate well by drinking plenty of electrolyte filled fluids, such as propel, sugar-free Gatorade, and Pedialyte. If you develop any new or worsening symptoms, or if you become concerned for your health for any reason, return to the emergency department for evaluation. Clinical Impressions Clinical Impression: Light-headedness, Hypoglycemia Print Language Print Language: Cuban Discharge ED Provider: Humberto Skinner General Adult HPI General Chief complaint: Dizziness Stated complaint: WEAKNESS Time Seen by Provider: 08/08/24 16:50 Mode of Arrival: EMS Source of Information: Patient Limitations: No Limitations History of Present Illness HPI narrative: Arleen Montenegro is a 34-year-old female with a past medical history of SVT, bipolar disorder, hypertension who presents to the emergency department for complaints of generalized weakness and lightheadedness. Patient states that she has not been eating well over the past several days and has been drinking lots of water. She states that she has had multiple episodes of feeling lightheaded and nearly passing out. She states that yesterday she had an episode and fell and hit her right knee. She states that she had 2 episodes today, 1 while at work, however she did not fall or lose consciousness completely. EMS was called and her fingerstick blood glucose was 50. She received oral glucose x 2 with continued glucose in the 50-60 range. She received D10 to 50 and route and fingerstick 144 on arrival. Patient notes that she is currently being treated with IV antibiotics for a skin infection to her left thigh. She denies any preceding chest pains, heart palpitations or shortness of breath. She complains of some numbness in her right thumb. Patient also admits to using cocaine today. Related Data Home Medications ?Medication ?Instructions ?Recorded ?Confirmed amitriptyline 25 mg tablet 25 mg PO HS 07/23/24 08/08/24 aripiprazole 10 mg tablet 10 mg PO DAILY 07/23/24 08/08/24 furosemide 20 mg tablet 20 mg PO DAILY 07/23/24 08/08/24 lumateperone 42 mg capsule 42 mg PO DAILY 07/23/24 08/08/24 (Caplyta) metoprolol succinate 100 mg 100 mg PO DAILY 07/23/24 08/08/24 tablet,extended release 24 hr mirtazapine 30 mg tablet 30 mg PO HS 07/23/24 08/08/24 oxcarbazepine 300 mg tablet 300 mg PO DAILY 07/23/24 08/08/24 sofosbuvir 400 mg-velpatasvir 100 1 tab PO DAILY 07/23/24 08/08/24 mg tablet Previous Rx's ?Medication ?Instructions ?Recorded lqqwiaiuenkzazq-fwxrxiyukgenkbh-VS 5 ml PO Q6H PRN Cough #240 mL 07/23/24 2 mg-30 mg-10 mg/5 mL oral syrup (Bromfed DM) cephalexin 500 mg capsule 500 mg PO QID #40 caps 07/23/24 mupirocin 2 % topical ointment 1 applic topical TID 7 days #15 07/23/24 grams sulfamethoxazole 800 1 tab PO BID 10 days #20 tabs 07/23/24 mg-trimethoprim 160 mg tablet (Bactrim DS) ondansetron 8 mg disintegrating 8 mg PO Q12H n/v #30 tabs 08/05/24 tablet Allergies Allergy/AdvReac Type Severity Reaction Status Date / Time No Known Allergies Allergy Verified 08/08/24 11:31 [facility] Disclaimer: The information contained in this section may have been updated after the patient was seen, as this information can be updated by other users. Medical History Syncope HTN (hypertension) Bipolar 1 disorder Surgical History History of tubal ligation History of appendectomy Family History Other Family history of cancer Social History (Updated 08/08/24 @ 11:27 by Tamara Giron RN) Smoking Status: Current every day smoker alcohol intake: never substance use type: marijuana, crack/cocaine and IV drugs current occupational status: employed Travel in the last 8 weeks: None Other Medical History Have you received the Flu Vaccine for this season: No Have you received the Pneumonia Vaccine: No ROS Obtained: Yes Systems reviewed as appropriate & no additional complaints except as documented Physical Exam General General appearance: alert, in no apparent distress and obese Head Head exam: atraumatic Eye Eye exam: Present normal appearance ENT ENT exam: Present normal external ear exam Neck Neck exam: Present normal inspection Chest Chest inspection: Present normal inspection and symmetric chest wall rise; Absent tenderness Respiratory Respiratory exam: Present normal lung sounds bilaterally; Absent respiratory distress Cardiovascular Cardiovascular exam: Present regular rate, normal rhythm and normal heart sounds Abdominal Exam Abdominal exam: Present soft; Absent distention or tenderness Extremities Exam Extremities exam: Present normal inspection; Absent edema Back Exam Back exam: Present normal inspection Neurological Exam Neurological exam: Present alert, oriented X3, CN II-XII intact and normal gait Psychiatric Psychiatric exam: Present normal affect Skin Skin exam: Present warm and dry Medical Decision Making Medical Records Medical records reviewed: Yes I reviewed the patient's medical records. Screening: Per USPSTF and CDC recommendations, given the prevalence of disease in our region, it is our hospital?s policy to screen for HIV and viral Hepatitis for all patients aged 18 and over and those with ongoing risk factors. Shayan Inquiry Pt receiving controlled substance: No Vital Signs: 08/08/24 16:46 08/08/24 16:49 08/08/24 17:00 Temperature 98 F Temperature Source Oral Pulse Rate 73 70 Pulse Rate [Right] 69 Respiratory Rate 18 Blood Pressure 113/83 126/79 Blood Pressure [Right Arm] 133/83 Blood Pressure Mean Blood Pressure Mean [Right Arm] 99 02 Sat by Pulse Oximetry 96 97 98 Oxygen Delivery Method Room Air Room Air 08/08/24 17:31 08/08/24 17:44 08/08/24 18:00 Temperature Temperature Source Pulse Rate 63 65 65 Pulse Rate [Right] Respiratory Rate Blood Pressure 109/62 L 118/70 108/73 L Blood Pressure [Right Arm] Blood Pressure Mean Blood Pressure Mean [Right Arm] 02 Sat by Pulse Oximetry 100 98 100 Oxygen Delivery Method Room Air Room Air Room Air 08/08/24 18:30 Temperature Temperature Source Pulse Rate 62 Pulse Rate [Right] Respiratory Rate Blood Pressure 111/67 Blood Pressure [Right Arm] Blood Pressure Mean 79 Blood Pressure Mean [Right Arm] 02 Sat by Pulse Oximetry 99 Oxygen Delivery Method Room Air Lab Data Lab Results 08/08/24 16:50: WBC 5.9, RBC 4.27, Hgb 13.6, Hct 40.1, MCV 94.0, MCH 31.9 H, MCHC 33.9, RDW 13.8, Plt Count 322, MPV 6.9 L, Neut % (Auto) 48.5, Lymph % (Auto) 40.7, [place] % (Auto) 4.1, Eos % (Auto) 5.9, Baso % (Auto) 0.8, Neut # (Auto) 2.9, Lymph # (Auto) 2.4, [place] # (Auto) 0.2, Eos # (Auto) 0.4, Baso # (Auto) 0.1, Sodium 139, Potassium 3.2 L, Chloride 106, Carbon Dioxide 26, Anion Gap 10.2, BUN 10, Creatinine 0.70, Estimated Creat Clear 165, Estimated GFR 97, Est GFR ( Amer) 117, Glucose 133 H, Calcium 9.2, Troponin I < 0.01, TSH 0.31 L 08/08/24 16:50 08/08/24 16:50 Orders (Tests/Meds): ED MEDICATIONS Discontinued Medications Generic Name Dose Route Start Last Admin Trade Name Dolly PRN Reason Stop Dose Admin Potassium Chloride 40 meq 08/08/24 17:22 08/08/24 18:01 Potassium Chloride 20meq Tab PO 08/08/24 17:23 40 meq ONCE ONE Administration ORDERS Category Date Time Status BMP [Basic Metabolic Panel] Stat Lab 08/08/24 16:50 Completed CBC w/Auto Diff [Complete Blood Count Auto Diff] Stat Lab 08/08/24 16:50 Completed TSH [Thyroid Stimulating Hormone] Stat Lab 08/08/24 16:50 Completed Troponin I Stat Lab 08/08/24 16:50 Completed ECG Data Tracing #1: I reviewed this ECG and interpreted as documented below: EKG interpreted by me personally at 1704. Sinus bradycardia with ventricular rate of 59 bpm. Normal DC interval of 166. QTc normal at 414. No ST elevations or depressions. No evidence of ischemic changes. Medical Decision Narrative: Arleen Montenegro is a 34-year-old female with past medical history of SVT, hypertension, bipolar disorder and is currently receiving antibiotics for cellulitis who presents to the emergency department for complaints of lightheadedness and generalized weakness. This has been present over the last several days with feeling of presyncope. She states that she has not been eating well over the last several days. Patient's fingerstick blood glucose and route was 50 but responded to oral glucose and 250 of D10. Patient does report that she was recently told that her thyroid levels were elevated. Patient denying any chest pain, shortness of breath, or palpitations before these events. Patient's never had a low glucose in the past. On arrival, patient is normotensive, heart rate within normal limits, breathing comfortably on room air with SpO2 of 98%. Afebrile. Physical exam grossly unremarkable as stated above. Differential diagnosis includes: SVT, ACS, hypoglycemia, dehydration, hypothyroidism/hyperthyroidism, anemia, among others. Patient's workup in the emergency department included: Troponin, CBC, BMP, TSH. Chest x-ray was considered, however given the patient's not short of breath and not having chest pain and does not have any infectious symptoms, is felt that this is not indicated at this time as it would not change ED management. Labs reviewed by me personally. No leukocytosis, no anemia, mild hypokalemia at 3.2 but electrolytes otherwise within normal limits. Glucose on BMP 133. Initial troponin less than 0.01. TSH mildly low at 0.31. On reassessment, patient remained in stable condition and had no recurrence of her symptoms. Is felt that her symptoms are likely secondary to low oral intake causing hypoglycemia. Patient encouraged to increase oral intake by drinking fluids with electrolytes/glucose and to eat well. She was encouraged to follow with her primary care physician. Return precautions were given. All questions were answered. She demonstrated understanding and was in agreement with this plan. She was then discharged from the emergency department in stable condition. Critical Care Critical Care Time Critical Care Time: No
--- NOTE | 2024-08-08 16:58 | PC.NURSE ---
DR GARCÍA AT BEDSIDE
--- NOTE | 2024-08-08 17:03 | ECG_ITS ---
APPROVED REPORT Exam: Resting ECG HR:59 bpm ECG Measurements Heart Rate 59 AXES SD 166 P 43 QRSd 108 QRS 22 QT 414 T 36 QTc 414 Conclusion SINUS BRADYCARDIA BORDERLINE ECG UNCONFIRMED REPORT Electronically signed by : OLVIN CARTER, 08/09/2024 06:52:24
--- NOTE | 2024-08-08 17:05 | PC.NURSE ---
glucose of 144
--- OUTSIDE RECORDS SUMMARY | 2024-08-08 17:07 | XMS_ITS | Encounter Summary ---
Author Organization Healthcare Address [address] [place] [address] Care Team Providers Care Freelance Designer Name Role Phone Lc Hancock MD Primary Care Provider [phone] Encounter Details Date Type Department Care Team [...] on filedocumented in this encounter Care Teams Freelance Designer Relationship Specialty Start Date End Date Lc Hancock MD [address] [place] [id number] PCP - General 02/05/21 documented as of this encounter
--- OUTSIDE RECORDS SUMMARY | 2024-08-08 17:07 | XMS_ITS | Encounter Summary ---
Author Organization [facility] Address [address] [place] [address] Care Team Providers Care Market Survey Representative Name Role Phone Provider, No Known Primary Care Provider Unavail able Reason for Visit * Reason Comments Rapid Heart Rate Encounter Details Date Type Department Care Team (Latest Contact Info) Description 06/15/2023 1:30 PM EDT Office Visit [facility] CARDIOLOGY [address] [phone] Diana Holland APRN [address] [place] [address] SVT (supraventricular tachycardia) (Primary Dx); Other [...] recently. She was previously followed by a gear design engineer in [place] but recently moved back to [place]. She reports that she was taking a beta-mercedes and a cholesterol medicine [facility] but has been out of that for several months. She also reports shortness of breath and occasional dizziness. She has had a full cardiac work-up in the past several years, including a left heart cath at [facility] that was reportedly normal. Holter monitor [...] hyperlipidemia documented in this encounter Care Teams Market Survey Representative Relationship Specialty Start Date End Date Provider, [place] [address] PCP - General 05/15/23 documented as of this encounter
--- OUTSIDE RECORDS SUMMARY | 2024-08-08 17:07 | XMS_ITS | Encounter Summary ---
Author Organization [facility] Address [address] [place] [address] Care Team Providers Care Slagger Name Role Phone Provider, No Known Primary Care Provider Unavail able Reason for Referral * Cardiac (Routine) - Closed Specialty Diagnoses / Procedures Referred By Skyler t Referred To Contact Diagnoses SVT (supraventricular tachycardia) Palpitations Procedures Holter Monitor - 72 Hour Up To 15 Days Diana Holland APRN [address] [place] [address] Phone: tel: fax: [employer] [facility] [address] [place] [address] Phone: tel: Referral ID Status Reason Start Date Expiration Date Visits Re quested Visits Authorized [id number] Closed 05/15/2023 05/14/2024 1 1 Reason for Visit * Reason Comments Establish Care * Consultation (Routine) - Closed Specialty Diagnoses / Procedures Referred By Contac t Referred To Contact Cardiology Diagnoses Irregular heart rate Referring, [place], [place] [id number] [place] [address] [place] [address] Phone: tel: fax: Referral ID Status Reason Start Date Expiration Date Visits Re quested Visits Authorized [id number] Closed 05/08/2023 05/07/2024 1 1 Encounter Details Date Type Department Care Team (Late st Contact Info) Description 05/15/2023 1:00 PM EDT Office Visit [facility] CARDIOLOGY [address] [phone] Diana Holland APRN [address] [place] [address] SVT (supraventricular tachycardia) (Primary Dx); Screening for [...] - We will obtain records from previous electronic scanner operator in [place]. Patient reportedly has had a full cardiac work-up in the last several years, including a left heart cath at [facility]. * Diana Holland APRN - 05/15/2023 [...] recently. She was previously followed by a electronic scanner operator in [place] but recently moved back to [place]. She reports that she was taking a beta-mercedes and a cholesterol medicine in the past but has been out of that for several months. She also reports shortness of breath and occasional dizziness. She has had a full cardiac work-up in the past several years, including a left heart cath at [facility] that was reportedly normal. Patient's mother [...] - We will obtain records from previous electronic scanner operator in [place]. Patient reportedly has had a full cardiac work-up in the last several years, including a left heart cath at [facility]. Orders: - Holter Monitor - 72 [...] T4 (05/25/2023) Blood us Diana E Trautwein MATERIAL CARRIER LAB BLOOD ORDERABLES Fin al Result Performing Organization Address [facility] Phone Number [facility]
[address] [place] [address], [place] [phone] * Lipid Panel (05/25/2023) Blood Diana E Trautwein MATERIAL CARRIER LAB BLOOD ORDERABLES Fin al Result Performing Organization Address [facility] Phone Number [facility]
[address] [place] [address], [place] [phone] * CBC & Differential (05/25/2023) Blood Diana E Trautwein MATERIAL CARRIER LAB BLOOD ORDERABLES Fin al Result Performing Organization Address [facility] Phone Number [facility]
[address] [place] [address], [place] [phone] * Comprehensive Metabolic Panel (05/25/2023) Blood Diana E Trautwein MATERIAL CARRIER LAB BLOOD ORDERABLES Fin al Result Performing Organization Address [facility] Phone Number [facility]
[address] [place] [address], [place] [phone] * HOLTER MONITOR >48HRS UP TO 7 [...] this exam include Supraventricular tachycardia. Total beats: 454190. Average HR: 86. Min HR: 46. Max [...] palpitations recently. She was previouslyfollowed by a electronic scanner operator in [place] but recently moved back to [place].She reports that she was taking a beta-mercedes and a cholesterol medicinein the past but has been out of that for several months. She also reportsshortness of breath and occasional dizziness. She has had a full cardiacwork-up in the past several years, including a left heart cath at [facility] that was reportedly normal. Patient's [...] (64 ) Wt 88.5 kg (195 lb) AoF048% BMI 33.47 kg/m?? Estimated body mass index [...] - We will obtain records from previous electronic scanner operator in [place].Patient reportedly has had a full cardiac work-up in the last severalyears, including a left heart cath at [facility]. Orders: - Holter Monitor - 72 [...] Palpitations documented in this encounter Care Teams Slagger Relationship Specialty Start Date End Date Provider, [place] [address] PCP - General 05/15/23 documented as of this encounter
--- OUTSIDE RECORDS SUMMARY | 2024-08-08 17:07 | XMS_ITS | Clinical Summary ---
Author Organization [facility] Address [address] [place] [address] Care Team Providers Care Cooler Man Name Role Phone Provider, No Known Primary [...] - We will obtain records from previous molding cutter in [place]. Patient reportedly has had a full cardiac work-up in the last several years, including a left heart cath at [facility]. Palpitations 05/15/2023 Screening for lipid disorders 05/15/2023 [...] APRN LAB BLOOD ORDERABLES Fin al Result [facility]
[address] [place] [address], from Last 3 Months or Most Recently Relevant to Health Maintenance Insurance [place] [address] Care Teams Cooler Man Relationship Specialty Start Date End Date Provider, No Known [facility] [place] [address] PCP - General 05/15/23
--- OUTSIDE RECORDS SUMMARY | 2024-08-08 17:07 | XMS_ITS | Clinical Summary ---
Author Organization Healthcare Address [address] [place] [address] Care Team Providers Care Rn Palliative Care Name Role Phone Lc Hancock MD Primary Care Provider [phone] Allergies No known active allergies Medications No [...] 2013 [facility]-Cervical Cancer Screening 2022 [facility]-HPV/Cotest 2022 [facility]-RYFBC-45 Vaccine (3 - 2022-24 season) 2024 02/24/2021, [...] Final Res ult [facility] [address] [place] [address] * (ABNORMAL) Hepatitis C Antibody - ED (11/21/2022 9:27 PM EST) Pathologist [facility] Hepatitis C Antibody Positive(A ) Negative 11/21/2022 10:31 PM EST [facility] Blood Venous blood specimen / Unknown Venipuncture / Unknown 11/21/2022 9:27 PM EST 11/21/2022 9:52 PM EST Trent Riddle MD LAB BLOOD ORDERABLES Final Res [facility] [address] [place] [address] from Last 3 Months or Most Recently Relevant to Health Maintenance Insurance MEDICAID Care Teams Rn Palliative Care Relationship Specialty Start Date End Date Lc Hancock MD [address] [id number] PCP - General 02/05/21
--- OUTSIDE RECORDS SUMMARY | 2024-08-08 17:07 | XMS_ITS | Encounter Summary ---
Author Organization Healthcare Address [address] [place] [address] Care Team Providers Care Animal Skinner Name Role Phone Lc Hancock MD Primary Care Provider [phone] Encounter Details Date Type Department Care Team [...] on filedocumented in this encounter Care Teams Animal Skinner Relationship Specialty Start Date End Date Lc Hancock MD [address] [place], [place] [id number] PCP - General 02/05/21 documented as of this encounter
--- OUTSIDE RECORDS SUMMARY | 2024-08-08 17:07 | XMS_ITS | Encounter Summary ---
Author Organization [facility] Address [address] [place] [address] Care Team Providers Care Commercial Subcontractor Name Role Phone Provider, No Known Primary Care Provider Unavail able Reason for Visit * Cardiac (Routine) - Closed Specialty Diagnoses / Procedures Referred By Contac t Referred To Contact Diagnoses SVT (supraventricular tachycardia) Palpitations Procedures Holter Monitor - 72 Hour Up To 15 Days Diana Holland APRN [address] [place] [address] Phone: tel: fax: [employer] [facility] [address] [facility] [address] Phone: tel: Referral ID Status Reason Start Date Expiration Date Visits Re quested Visits Authorized [id number] Closed 05/15/2023 05/14/2024 1 1 Encounter Details Date Type Department Care Team (Late st Contact Info) Description 05/15/2023 1:30 PM EDT Ancillary Procedure [facility] CARDIOLOGY [address] [id number] Social History Tobacco Use Types Packs/Day Years [...] this exam include Supraventricular tachycardia. Total beats: 387670. Average HR: 86. Min HR: 46. Max HR: 179. Study Impressions A relatively benign monitor study. Nonsustained SVT. See raw data for further information. us Diana Holland APRN [facility] Final Result documented in this encounter Visit Diagnoses Not on filedocumented in this encounter Care Teams Commercial Subcontractor Relationship Specialty Start Date End Date Provider, [place] [address] PCP - General 05/15/23 documented as of this encounter
--- OUTSIDE RECORDS SUMMARY | 2024-08-08 17:07 | XMS_ITS | Encounter Summary ---
Author Organization Healthcare Address [address] [place] [address] Care Team Providers Care Industrial Cleaner Name Role Phone Lc Hancock MD Primary Care Provider [phone] Reason for Visit * Reason Comments Wound Check Encounter Details Date Type Department Care Team (Late st Contact Info) Description 12/09/2023 9:32 PM EDT - 12/09/2023 10:45 PM EDT Emergency [facility] [address] [place] [address] Discharge Disposition: Left WIthout Being Seen Social [...] on filedocumented in this encounter Care Teams Industrial Cleaner Relationship Specialty Start Date End Date Lc Hancock MD [address] [place] [address] PCP - General 02/05/21 documented as of this encounter
--- OUTSIDE RECORDS SUMMARY | 2024-08-08 17:08 | XMS_ITS | Encounter Summary ---
Author Organization Healthcare Address [address] [place] [address] Care Team Providers Care Stuntman Name Role Phone Lc Hancock MD Primary Care Provider [phone] Reason for Visit * Reason Comments Seizures Shortness of Breath Encounter Details Date Type Department Care Team ([facility] st Contact Info) Description 11/21/2022 8:30 PM EST - 11/22/2022 2:42 AM EST Emergency [facility] A Emergency Department [address] [place] [address] Radha Riddle MD [address] [place] [phone] Teo Martin MD [address] [place] [phone] Seizure-like activity (CMS/HCC) (Primary Dx) Discharge [...] Disposition - Gregg Baldwin DO Resident 11/21/22 [id number] Cosigned by Radha Riddle MD at 11/23/2022 [...] for some time. Patient was seen at [facility] last night and discharged home, patient states she has an appointment with a web support engineer in the morning but does not know [...] WO IV CONTRAST ordered by RADHA RIDDLE, [id number] CLINICAL INDICATION: seizure TECHNIQUE: Routine contiguous axial [...] WO IV CONTRAST ordered by RADHA RIDDLE, [id number] CLINICAL INDICATION: seizure TECHNIQUE: Routine contiguous axial [...] <6 <14 ng/L 11/21/2022 11:[address] [facility] Troponin Delta Interpretation Not Calculated 11/21/2022 11:[address] [facility] Comment:Specimen not collect ed within acceptable timeframe. Delta will not be calculated. Blood Venous blood specimen / Unknown Venipuncture / Unknown 11/21/2022 11:25 PM EST 11/21/2022 11:28 PM EST Radha Riddle MD LAB BLOOD ORDERABLES Final Res ult Performing Organization Address City/[facility] Co de Phone Number [facility] [address] [place] [address] * Methadone Confirm LCMSMS (11/21/2022 9:56 PM EST) Methadone <50 <50 ng/mL 11/23/2022 2:[address] [facility] EDDP - Methadone Metabolite <50 <50 ng/mL 11/23/2022 2:[address] [facility] Urine Urine specimen obtained by clean catch procedure / Unknown Non-blood Collection / Unknown 11/21/2022 9:56 PM EST 11/21/2022 10:[address] [facility] - 11/23/2022 2:11 PM EST Drug analysis is confirmed by LC-MS/MS (LC Tandem Mass Spectrometry) on Urine specimens. ?? This test was developed and its performance characteristics determined by [facility]. It has not been cleared or approved by the FDA. The laboratory is regulated under CLIA as qualified to perform high-complexity testing. This test is used for clinical purposes. Testing is performed at the [facility]. Radha Riddle MD LAB URINE ORDERABLES Final Res ult Performing Organization Address [facility] Co de Phone Number [facility] [address] [place] [address] * (ABNORMAL) Cocaine Metabolite Confirm Urine (11/21/2022 9:56 PM EST) Benzoylecgonine >1,000(H) <50 ng/mL 2:[address] [facility] Urine Urine specimen obtained by clean catch procedure / Unknown Non-blood Collection / Unknown 11/21/2022 9:56 PM EST 11/21/2022 10:[address] [facility] - 11/23/2022 2:10 PM EST Drug analysis is confirmed by LC-MS/MS (LC Tandem Mass Spectrometry) on Urine specimens. ?? This test was developed and its performance characteristics determined by [facility]. It has not been cleared or approved by the FDA. The laboratory is regulated under CLIA as qualified to perform high-complexity testing. This test is used for clinical purposes. Testing is performed at the [facility]. Radha Riddle MD LAB URINE ORDERABLES Final Res ult Performing Organization Address [facility] de Phone Number [facility] [address] [place] [address] * (ABNORMAL) THC Urine Confirm LCMSMS (11/21/2022 9:56 PM EST) 9 Carboxy THC 22(H) <10 ng/mL 11/23/2022 2:[address] [facility] 9 Carboxy THC Glucuronide 330(H) <25 ng/mL 11/23/2022 2:[address] [facility] Urine Urine specimen obtained by clean catch procedure / Unknown Non-blood Collection / Unknown 11/21/2022 9:56 PM EST 11/21/2022 10:[address] [facility] - 11/23/2022 2:09 PM EST Drug analysis is confirmed by LC-MS/MS (LC Tandem Mass Spectrometry) on Urine specimens. ?? This test was developed and its performance characteristics determined by [facility]. It has not been cleared or approved by the FDA. The laboratory is regulated under CLIA as qualified to perform high-complexity testing. This test is used for clinical purposes. Testing is performed at the [facility]. us Radha Riddle MD LAB URINE ORDERABLES Final Res ult Performing Organization Address [facility] Co de Phone Number [facility] [address] [place] [address] * Urinalysis Microscopic Examination (11/21/2022 9:56 PM EST) Urine Urine specimen obtained by clean catch procedure / Unknown Non-blood Collection / Unknown 11/21/2022 9:56 PM EST 11/21/2022 10:01 PM EST Radha Riddle MD LAB URINE ORDERABLES Final Res ult [facility] [address] [place] [id number] * Drug abuse screen (11/21/2022 9:56 PM EST) Amphetamine Screen Urine Negative Cutoff: 500 ng/mL 11/21/2022 10:34 PM EST [facility] Benzodiazepines Screen Urine Negative Cutoff: 200 ng/mL 11/21/2022 10:[address] [facility] Cannabinoid Screen Urine Presumptive positive. Confirmation by LC-MS/MS to follow. Cutoff: 50 ng/mL 11/21/2022 10:[address] [facility] Cocaine Screen Urine Presumptive positive. Confirmation by LC-MS/MS to follow. Cutoff: 300 ng/mL 11/21/2022 10:[address] [facility] Barbiturate Screen Urine Negative Cutoff: 200 ng/mL 11/21/2022 10:[address] [facility] Opiate Screen Urine Negative Cutoff: 300 ng/mL 11/21/2022 10:[address] [facility] Methadone Screen Urine Presumptive positive. Confirmation by LC-MS/MS to follow. Cutoff: 300 ng/mL 11/21/2022 10:[address] [facility] Buprenorphine Screen Urine Negative Cutoff: 10 ng/mL 11/21/2022 10:[address] [facility] Fentanyl Screen Urine Negative Cutoff: 1 ng/mL 11/21/2022 10:[address] [facility] Oxycodone Screen Urine Negative Cutoff: 100 ng/mL 11/21/2022 10:[address] [facility] Urine Urine specimen obtained by clean catch procedure / Unknown Non-blood Collection / Unknown 11/21/2022 9:56 PM EST 11/21/2022 10:01 PM EST Radha Riddle MD LAB URINE ORDERABLES Final Res ult [facility] [address] [place] [address] * (ABNORMAL) Urinalysis with reflex microscopic (11/21/2022 9:56 PM EST) Color, Urine Yellow LAB URINALYSIS - AUTOMATED METHOD 11/21/2022 11:[address] [facility] Clarity, Urine Cloudy LAB URINALYSIS - AUTOMATED METHOD 11/21/2022 11:[address] [facility] Spec [place], Urine 1.011 <=1.005 to >=1.030 LAB URINALYSIS - AUTOMATED METHOD 11/21/2022 11:[address] [facility] pH, Urine 6.0 4.5 to 8 LAB URINALYSIS - AUTOMATED METHOD 11/21/2022 11:[address] [facility] Protein, Urine Negative Negative mg/dL LAB URINALYSIS - AUTOMATED METHOD 11/21/2022 11:[address] [facility] Glucose, Urine Negative Negative mg/dL LAB URINALYSIS - AUTOMATED METHOD 11/21/2022 11:[address] [facility] Ketones, Urine Negative Negative mg/dL LAB URINALYSIS - AUTOMATED METHOD 11/21/2022 11:[address] [facility] Blood, Urine Negative Negative LAB URINALYSIS - AUTOMATED METHOD 11/21/2022 11:[address] [facility] Bilirubin, Urine Negative Negative LAB URINALYSIS - AUTOMATED METHOD 11/21/2022 11:[address] [facility] Urobilinogen, Urine 1.0 0.2 to 1.0 mg/dL LAB URINALYSIS - AUTOMATED METHOD 11/21/2022 11:[address] [facility] Leukocytes, Urine Large(A) Negative LAB URINALYSIS - AUTOMATED METHOD 11/21/2022 11:[address] [facility] Nitrite, Urine Negative Negative LAB URINALYSIS - AUTOMATED METHOD 11/21/2022 11:[address] [facility] RBC, Urine 2 0 to 3 /HPF LAB URINALYSIS - AUTOMATED METHOD 11/21/2022 11:[address] [facility] Comment:This result was prev iously [...] Trichomonas Present Absent 11/21/2022 11:[address] [facility] Comment:This result was prev iously suppressed from the chart. Yeast (Budding and/or Pseudohyphae) Present(A) Absent 11/21/2022 11:46 PM EST [facility] Comment:This result was prev iously suppressed from the chart. Urine Urine specimen obtained by clean catch procedure / Unknown Non-blood Collection / Unknown 11/21/2022 9:56 PM EST 11/21/2022 10:[address] [facility] - 11/21/2022 11:46 PM EST Performed by manual method us Radha Riddle MD LAB URINE ORDERABLES Final Res ult [facility] [address] [place] [id number] * XR Chest 1 View (11/21/2022 9:31 [...] CHEST 1 VIEW ordered by RADHA RIDDLE, [id number] CLINICAL INDICATION: ? seizure TECHNIQUE: XR CHEST 1 VIEW COMPARISON: None. FINDINGS: No consolidation or evidence of a significant effusion. No appreciable pneumothorax. Borderline cardiomegaly, with unremarkable cardiac and mediastinal contours. No free subdiaphragmatic gas. No acute osseous findings. Procedure Note Carter Hanson MD - 11/21/2022 Exam/Procedure: XR CHEST 1 VIEW ordered by RADHA RIDDLE, [id number] CLINICAL INDICATION: ? seizure TECHNIQUE: XR CHEST [...] LAB - 11/22/2022 12:23 PM EST The [employer] M2000 HCV test is a Real Time [...] ORDERABLES Final Res ult Performing Organization Address [facility] de Phone Number [facility] [address] [place] [address] * Salicylate level (11/21/2022 9:27 PM EST) Salicylate, Quantitative, Plasma <1.0 <25 mg/dL mg/dL 11/21/2022 9:[address] [facility] Blood Venous blood specimen / Unknown Venipuncture / Unknown 11/21/2022 9:27 PM EST 11/21/2022 9:34 PM EST Narrative [facility] - 11/21/2022 9:56 PM EST Therapeutic Range: ? <25 mg/dL Supratherapeutic Level: ??>30 mg/dL Radha Riddle MD LAB BLOOD ORDERABLES Final Res ult Performing Organization Address [facility] de Phone Number [facility] [address] [place] [address] * (ABNORMAL) Acetaminophen, Quantitative, Plasma (11/21/2022 9:27 [...] ORDERABLES Final Res ult Performing Organization Address City/[facility]/ZIP Co de Phone Number [facility] [address] [place] [address] * HIV 1 & 2 Antibody/Antigen Screen (11/21/2022 9:27 PM EST) Pathologist [facility] HIV 1 & 2 Antibody/Antigen Screen Non Reactive Non Reactive 11/21/2022 10:28 PM EST [facility] Comment:Screening for HIV 1 & 2 antibodies, and P24 antigen is NONREACTIVE. No confirmatory testing is required. Blood Venous blood specimen / Unknown Venipuncture / Unknown 11/21/2022 9:27 PM EST 11/21/2022 9:52 PM EST Radha Riddle MD LAB BLOOD ORDERABLES Final Res ult Performing Organization Address [facility] Co de Phone Number [facility] [address] [place] [phone] * (ABNORMAL) CBC w/diff (11/21/2022 9:27 PM EST) Pathologist [facility] WBC Count 15.33(H) 3.70 - 10.30 10*3/uL LAB HEMATOLOGY METHOD 11/21/2022 9:[address] [facility] RBC Count 4.03 3.90 - 5.20 10*6/uL LAB HEMATOLOGY METHOD 11/21/2022 9:[address] [facility] HGB 12.3 11.2 - 15.7 g/dL LAB HEMATOLOGY METHOD 11/21/2022 9:[address] [facility] HCT 36.7 34.0 - 45.0 % LAB HEMATOLOGY METHOD 11/21/2022 9:[address] [facility] Platelet Count 332 155 - 369 10*3/uL LAB HEMATOLOGY METHOD 11/21/2022 9:[address] [facility] MCV 91 79 - 98 fL LAB HEMATOLOGY METHOD 11/21/2022 9:[address] [facility] MCH 30.5 26.0 - 32.0 pg LAB HEMATOLOGY METHOD 11/21/2022 9:[address] [facility] MCHC 33.5 30.7 - 35.5 g/dL LAB HEMATOLOGY METHOD 11/21/2022 9:[address] [facility] RDW 14.4 11.5 - 14.5 % LAB HEMATOLOGY METHOD 11/21/2022 9:[address] [facility] MPV 8.9 8.8 - 12.5 fL LAB HEMATOLOGY METHOD 11/21/2022 9:[address] [facility] nRBC 0.0 <=0.0 per 100 WBCs LAB HEMATOLOGY METHOD 11/21/2022 9:[address] [facility] Differential Type Automated LAB HEMATOLOGY METHOD 11/21/2022 9:[address] [facility] Neutrophils % 63.0 % LAB HEMATOLOGY METHOD 11/21/2022 9:[address] [facility] Lymphocytes % 29.0 % LAB HEMATOLOGY METHOD 11/21/2022 9:[address] [facility] Monocytes % 7.0 % LAB HEMATOLOGY METHOD 11/21/2022 9:[address] [facility] Eosinophils % 1.0 % LAB HEMATOLOGY METHOD 11/21/2022 9:[address] [facility] Basophils % 0.0 % LAB HEMATOLOGY METHOD 11/21/2022 9:36 PM [facility] Immature Granulocytes % 0.0 % LAB HEMATOLOGY METHOD 11/21/2022 9:36 PM [facility] Neutrophils Absolute 9.66(H) 1.60 - 6.10 10*3/uL LAB HEMATOLOGY METHOD 11/21/2022 9:[address] [facility] Lymphocytes Absolute 4.38(H) 1.20 - 3.90 10*3/uL LAB HEMATOLOGY METHOD 11/21/2022 9:[address] [facility] Monocytes Absolute 1.00(H) 0.30 - 0.90 10*3/uL LAB HEMATOLOGY METHOD 11/21/2022 9:36 PM [facility] Eosinophils Absolute 0.22 0.00 - 0.50 10*3/uL LAB HEMATOLOGY METHOD 11/21/2022 9:36 PM [facility] Basophils Absolute 0.03 0.00 - 0.10 10*3/uL LAB HEMATOLOGY METHOD 11/21/2022 9:36 PM [facility] Immature Granulocytes Absolute 0.04 0.00 - 0.06 10*3/uL LAB HEMATOLOGY METHOD 11/21/2022 9:36 PM [facility] Blood Venous blood specimen / Unknown Venipuncture / Unknown 11/21/2022 9:27 PM EST 11/21/2022 9:[address] [facility] - 11/21/2022 9:36 PM EST Therapeutic decision making should be based on absolute values, rather than percentages. Radha Riddle MD LAB BLOOD ORDERABLES Final Res ult [facility] [address] [place] [address] * (ABNORMAL) Blood gas panel, venous (11/21/2022 9:27 PM EST) pH, Venous 7.37 7.32 - 7.43 LAB HEMATOLOGY METHOD 11/21/2022 9:[address] [facility] pCO2, Venous 46 37 - 52 mmHg LAB HEMATOLOGY METHOD 11/21/2022 9:[address] [facility] pO2, Venous 22(L) 25 - 40 mmHg LAB HEMATOLOGY METHOD 11/21/2022 9:[address] [facility] SO2, Measured, Venous 39.5(L) 65 - 80 % LAB HEMATOLOGY METHOD 11/21/2022 9:[address] [facility] Base Excess, Venous 0.8 -2.0 - 3.0 mmol/L LAB HEMATOLOGY METHOD 11/21/2022 9:[address] [facility] Bicarbonate, Calculated, Venous 27(H) 22 - 26 mmol/L LAB HEMATOLOGY METHOD 11/21/2022 9:[address] [facility] Hematocrit, Whole Blood 39.3 34.0 - 45.0 % LAB HEMATOLOGY METHOD 11/21/2022 9:[address] [facility] Sodium, Whole Blood 146(H) 136 - 145 mmol/L LAB HEMATOLOGY METHOD 11/21/2022 9:[address] [facility] Potassium, Whole Blood 2.9(L) 3.6 - 4.9 mmol/L LAB HEMATOLOGY METHOD 11/21/2022 9:[address] [facility] Chloride, Whole Blood 111(H) 97 - 107 mmol/L LAB HEMATOLOGY METHOD 11/21/2022 9:[address] [facility] Glucose, Whole Blood 84 74 - 99 mg/dL LAB HEMATOLOGY METHOD 11/21/2022 9:[address] [facility] Lactate, Venous, Whole Blood 1.5 0.5 - 2.2 mmol/L LAB HEMATOLOGY METHOD 11/21/2022 9:[address] [facility] Ionized Calcium, Whole Blood 4.8 4.6 - 5.1 mg/dL LAB HEMATOLOGY METHOD 11/21/2022 9:[address] [facility] Blood Venous blood specimen / Unknown Venipuncture / Unknown 11/21/2022 9:27 PM EST 11/21/2022 9:34 PM EST Radha Riddle MD LAB BLOOD ORDERABLES Final Res ult Performing Organization Address [facility] de Phone Number [facility] [address] [place] [address] * hCG qualitative (11/21/2022 9:27 PM EST) Test Negative Negative 11/21/2022 10:[address] [facility] Blood Venous blood specimen / Unknown Venipuncture / Unknown 11/21/2022 9:27 PM EST 11/21/2022 9:[address] [facility] - 11/21/2022 10:06 PM EST Reference Range: Males and non- females: Negative. Radha Riddle MD LAB BLOOD ORDERABLES Final Res ult Performing Organization Address [facility] de Phone Number [facility] [address] [place] [address] * Ethyl Alcohol Plasma (11/21/2022 9:27 PM EST) Ethanol Plasma <10 <10 mg/dL 11/21/2022 10:[address] [facility] Blood Venous blood specimen / Unknown Venipuncture / Unknown 11/21/2022 9:27 PM EST 11/21/2022 9:52 PM EST Narrative [facility] - 11/21/2022 10:21 PM EST Test performed by Gas Chromatography at the [facility]. This test was developed and its performance characteristics determined by [facility]. It has not been cleared or approved by the FDA.The laboratory is regulated under CLIA as qualified to perform high-complexity testing. This test is used for clinical purposes only. us Radha Riddle MD LAB BLOOD ORDERABLES Final Res ult Performing Organization Address City/[facility] Co de Phone Number [facility] [address] [place] [address] * Free T4, Plasma (11/21/2022 9:27 PM [...] 3rd Trimester ??0.7??- 1.24 ng/dL Result [facility] Radha Riddle MD LAB BLOOD ORDERABLES Final Res ult Performing Organization Address [facility] de Phone Number [facility] [address] [place] [address] * Thyroid Stimulating Hormone, Plasma (11/21/2022 9:27 [...] 3rd Trimester ??0.3 ??- 3.[address] [facility] Radha Riddle MD LAB BLOOD ORDERABLES Final Res ult Performing Organization Address City/[facility] Co de Phone Number [facility] [address] [place] [address] * Troponin now and 120 min (11/21/2022 9:27 PM EST) [facility] Troponin T, High Sensitivity, 0 Hour <6 <14 ng/L 11/21/2022 10:06 PM EST [facility] Blood Venous blood specimen / Unknown Venipuncture / Unknown 11/21/2022 9:27 PM EST 11/21/2022 9:34 PM EST Radha Riddle MD LAB BLOOD ORDERABLES Final Res ult [facility] [address] [place] [address] * (ABNORMAL) Magnesium (11/21/2022 9:27 PM EST) [facility] Magnesium, Plasma 1.8(L) 1.9 - 2.4 mg/dL 11/21/2022 10:15 PM EST [facility] Blood Venous blood specimen / Unknown Venipuncture / Unknown 11/21/2022 9:27 PM EST 11/21/2022 9:34 PM EST Radha Riddle MD LAB BLOOD ORDERABLES Final Res ult Performing Organization Address City/[facility]/ZIP Co de Phone Number [facility] [address] [place] [address] * (ABNORMAL) Hepatitis C Antibody - ED (11/21/2022 9:27 PM EST) [facility] Hepatitis C Antibody Positive(A ) Negative 11/21/2022 10:31 PM EST [facility] Blood Venous blood specimen / Unknown Venipuncture / Unknown 11/21/2022 9:27 PM EST 11/21/2022 9:52 PM EST Radha Riddle MD LAB BLOOD ORDERABLES Final Res ult [facility] [address] [place] [address] * (ABNORMAL) CMP (11/21/2022 9:27 PM EST) [facility] Glucose, Plasma 84 74 - 99 mg/dL 11/21/2022 10:[address] [facility] BUN, Plasma 11 7 - 21 mg/dL 11/21/2022 10:15 PM [facility] Creatinine, Plasma 0.63 0.60 - 1.10 mg/dL 11/21/2022 10:15 PM [facility] BUN/Creatinine Ratio 17 11/21/2022 10:15 PM [facility] Sodium, Plasma 145 136 - 145 mmol/L 11/21/2022 10:15 PM [facility] Potassium, Plasma 3.1(L) 3.7 - 4.8 mmol/L 11/21/2022 10:15 PM [facility] Chloride, Plasma 111(H) 97 - 107 mmol/L 11/21/2022 10:15 PM [facility] CO2, Plasma 25 22 - 29 mmol/L 11/21/2022 10:15 PM [facility] Anion Gap 9 6 - 16 mmol/L 11/21/2022 10:15 PM [facility] Total Calcium, Plasma 8.9 8.9 - 10.2 mg/dL 11/21/2022 10:15 PM [facility] Total Protein 6.3 6.3 - 7.9 g/dL 11/21/2022 10:15 PM [facility] Albumin, Plasma 3.7 3.5 - 5.2 g/dL 11/21/2022 10:15 PM [facility] AST, Plasma 17 11 - 32 U/L 11/21/2022 10:15 PM [facility] ALT, Plasma 15 8 - 33 U/L 11/21/2022 10:15 PM [facility] Alkaline Phosphatase, Plasma 115(H) 35 - 104 U/L 11/21/2022 10:15 PM [facility] Total Bilirubin, Plasma <0.2(L) 0.2 - 1.1 mg/dL 11/21/2022 10:15 PM [facility] eGFRcr 122.6 mL/min/1.7 3m*2 11/21/2022 10:15 PM [facility] Comment: Reported eGFRcr in mL/min/1.73m2 is based the CKD-EPI 2020 equation that does not use a race coefficient. Effective 04/20/22 our laboratory changed the eGFR calculation to the CKD-EPI 2020 equation from the previously reported eGFR, based on the MDRD equation. ??For comparisons between the two equations, please see laboratory website: ??[email or web address] Blood Venous blood specimen / Unknown Venipuncture / Unknown 11/21/2022 9:27 PM EST 11/21/2022 9:34 PM EST us Radha Riddle MD LAB BLOOD ORDERABLES Final Res ult Performing Organization Address City/[facility]/ZIP Co de Phone Number [facility] [address] [place] [phone] * EKG now - STAT (adult) (11/21/2022 9:18 PM EST) EKG DIAGNOSIS CLASS Normal MUSE ECG Ventricular Rate 82 BPM MUSE ECG Atrial Rate 82 BPM MUSE ECG NV Interval 162 ms MUSE ECG QRSD Interval 92 ms MUSE ECG QT Interval 416 ms MUSE ECG QTC Interval 486 ms MUSE ECG P [place] 60 degrees MUSE ECG R [place] 52 degrees MUSE ECG T Wave [place] 38 degrees MUSE ECG Diagnosis Normal sinus rhythm MUSE ECG Diagnosis Normal ECG MUSE ECG Diagnosis Confirmed by Marcelina Pal ([id number]) on 11/22/2022 2:18:33 PM MUSE ECG 11/21/2022 9:18 PM EST 11/22/2022 2:18 PM EST Radha Riddle MD ECG ORDERABLES Final Result Performing Organization Address City/[facility]/ZIP Co de Phone Number MUSE ECG documented [...] Guerrero) documented in this encounter Care Teams Stuntman Relationship Specialty Start Date End Date Lc Hancock MD [address] [place] [address] PCP - General 02/05/21 documented as of this encounter
--- OUTSIDE RECORDS SUMMARY | 2024-08-08 17:08 | XMS_ITS | Encounter Summary ---
Author Organization Healthcare Address [address] [place] [address] Care Team Providers Care Linoleum Layer Apprentice Name Role Phone Lc Hancock MD Primary Care Provider [phone] Encounter Details Date Type Department Care Team [...] on filedocumented in this encounter Care Teams Linoleum Layer Apprentice Relationship Specialty Start Date End Date Lc Hancock MD [address] [place] [id number] PCP - General 02/05/21 documented as of this encounter
[2024-08-08 17:14] LABS: Anion Gap 10.2 mEq/L (5-15); Blood Urea Nitrogen 10 mg/dl (7-17); Calcium 9.2 mg/dl (8.4-10.2); Carbon Dioxide 26 mmol/L (22.0-30.0); Chloride 106 mmol/L (98-107); Creatinine Clearance Estimated 165 mL/min (50-200); Estimated Glomerular Filt Rate 97 ml/min (>60); GFR (African American) 117 ML/MIN (>60); Glucose 133 mg/dl (74-100); Potassium 3.2 mmoL/L (3.5-5.1); Sodium 139 mmol/L (136-145)
[2024-08-08 17:17] LABS: Basophils # 0.1 K/mm3 (0-0.2); Basophils % 0.8 % (0.1-2.0); Eosinophils # 0.4 K/mm3 (0.0-0.4); Eosinophils % 5.9 % (0.1-12.0); Hematocrit 40.1 % (37.0-47.0); Hemoglobin 13.6 g/dL (12.2-16.2); Lymphocytes # 2.4 K/mm3 (0.7-4.5); Lymphocytes % 40.7 % (10-50); Mean Corpuscular HGB Conc 33.9 g/dL (31.8-35.4); Mean Corpuscular Hemoglobin 31.9 pg (27.0-31.2); Mean Platelet Volume 6.9 fl (7.4-10.4); Monocytes # 0.2 K/mm3 (0.1-1.0); Monocytes % 4.1 % (1.7-9.3); Neutrophils # 2.9 K/mm3 (1.8-7.8); Neutrophils % 48.5 % (37.0-80.0); Platelet Count 322 K/mm3 (142-424); Red Blood Count 4.27 M/mm3 (4.20-5.40); Red Cell Distribution Width 13.8 % (11.5-17.5); White Blood Count 5.9 K/mm3 (4.8-10.8)
[2024-08-08 17:36] LABS: Troponin I < 0.01 ng/ml (0.00-0.034)
[2024-08-08 17:45] LABS: Thyroid Stimulating Hormone 0.31 uIU/mL (0.465-4.68)
[2024-08-08] MEDS: POTASSIUM CHLORIDE 20MEQ TAB 40 MEQ PO (18:01)
== END 2024-08-08 19:46 | disposition home or self-care (01) ==
PROVIDERS: Emergency Provider Student in an Organized Health Care Education/Training Program
DX: E16.2 Hypoglycemia, unspecified (principal); R53.1 Weakness; R42 Dizziness and giddiness
CPT/HCPCS: 80048; 84443; 84484; 85025; 93005; 99283

== ENCOUNTER 2024-08-09 10:49 | Outpatient (CLI) | payer MEDICAID, SELFPAY ==
--- OUTSIDE RECORDS SUMMARY | 2024-08-09 10:51 | XMS_ITS | Encounter Summary ---
Author Organization Healthcare Address [address] [place] [address] Care Team Providers Care White Kid Buffer Name Role Phone Lc Hancock MD Primary Care Provider [phone] Encounter Details Date Type Department Care Team [...] on filedocumented in this encounter Care Teams White Kid Buffer Relationship Specialty Start Date End Date Lc Hancock MD [address] [place], [place] [id number] PCP - General 02/05/21 documented as of this encounter
--- OUTSIDE RECORDS SUMMARY | 2024-08-09 10:51 | XMS_ITS | Encounter Summary ---
Author Organization Healthcare Address [address] [place] [address] Care Team Providers Care Clinical Assistant Name Role Phone Lc Hancock MD Primary Care Provider [phone] Reason for Visit * Reason Comments Wound Check Encounter Details Date Type Department Care Team (Late st Contact Info) Description 12/09/2023 9:32 PM EDT - 12/09/2023 10:45 PM EDT Emergency [facility] [address] [place] [address] Discharge Disposition: Left WIthout Being Seen Social [...] on filedocumented in this encounter Care Teams Clinical Assistant Relationship Specialty Start Date End Date Lc Hancock MD [address] [place] [address] PCP - General 02/05/21 documented as of this encounter
--- OUTSIDE RECORDS SUMMARY | 2024-08-09 10:51 | XMS_ITS | Encounter Summary ---
Author Organization [facility] Address [address] [place] [address] Care Team Providers Care Cable Reeler Name Role Phone Provider, No Known Primary Care Provider Unavail able Reason for Visit * Cardiac (Routine) - Closed Specialty Diagnoses / Procedures Referred By Contac t Referred To Contact Diagnoses SVT (supraventricular tachycardia) Palpitations Procedures Holter Monitor - 72 Hour Up To 15 Days Diana Holland APRN [address] [place] [address] Phone: tel: fax: [employer] [facility] [address] [place] [address] Phone: tel: Referral ID Status Reason Start Date Expiration Date Visits Re quested Visits Authorized [id number] Closed 05/15/2023 05/14/2024 1 1 Encounter Details Date Type Department Care Team (Late st Contact Info) Description 05/15/2023 1:30 PM EDT Ancillary Procedure [facility] [address] [id number] Social History Tobacco Use Types Packs/Day Years [...] this exam include Supraventricular tachycardia. Total beats: 706314. Average HR: 86. Min HR: 46. Max HR: 179. Study Impressions A relatively benign monitor study. Nonsustained SVT. See raw data for further information. us Diana Holland APRN [facility] Final Result documented in this encounter Visit Diagnoses Not on filedocumented in this encounter Care Teams Cable Reeler Relationship Specialty Start Date End Date Provider, [place] [address] PCP - General 05/15/23 documented as of this encounter
--- OUTSIDE RECORDS SUMMARY | 2024-08-09 10:51 | XMS_ITS | Encounter Summary ---
Author Organization Healthcare Address [address] [place] [address] Care Team Providers Care Director Appointment Name Role Phone Lc Hancock MD Primary Care Provider [phone] Reason for Visit * Reason Comments Seizures Shortness of Breath Encounter Details Date Type Department Care Team ([facility] st Contact Info) Description 11/21/2022 8:30 PM EST - 11/22/2022 2:42 AM EST Emergency PAV A Emergency Department [address] [place] [address] Radha Riddle MD [address] [place] [phone] Teo Martin MD [address] [place] [phone] Seizure-like activity (CMS/HCC) (Primary Dx) Discharge [...] Disposition - Gregg Baldwin DO Resident 11/21/22 1759 Cosigned by Radha Riddle MD at 11/23/2022 [...] for some time. Patient was seen at [facility] last night and discharged home, patient states she has an appointment with a forestry adviser in the morning but does not know [...] WO IV CONTRAST ordered by RADHA RIDDLE, [id number] CLINICAL INDICATION: seizure TECHNIQUE: Routine contiguous axial [...] WO IV CONTRAST ordered by RADHA RIDDLE, [id number] CLINICAL INDICATION: seizure TECHNIQUE: Routine contiguous axial [...] <6 <14 ng/L 11/21/2022 11:49 PM EST [facility] Troponin Delta Interpretation Not Calculated 11/21/2022 11:49 PM EST [facility] Comment:Specimen not collect ed within acceptable timeframe. Delta will not be calculated. Blood Venous blood specimen / Unknown Venipuncture / Unknown 11/21/2022 11:25 PM EST 11/21/2022 11:28 PM EST Radha Riddle MD LAB BLOOD ORDERABLES Final Res ult Performing Organization Address City/[facility] Co de Phone Number [facility] [address] [place] [address] * Methadone Confirm LCMSMS (11/21/2022 9:56 PM EST) Methadone <50 <50 ng/mL 11/23/2022 2:11 PM EST [facility] EDDP - Methadone Metabolite <50 <50 ng/mL 11/23/2022 2:11 PM EST [facility] Urine Urine specimen obtained by clean catch procedure / Unknown Non-blood Collection / Unknown 11/21/2022 9:56 PM EST 11/21/2022 10:01 PM EST Narrative [facility] - 11/23/2022 2:11 PM EST Drug analysis is confirmed by LC-MS/MS (LC Tandem Mass Spectrometry) on Urine specimens. ?? This test was developed and its performance characteristics determined by [facility]. It has not been cleared or approved by the FDA. The laboratory is regulated under CLIA as qualified to perform high-complexity testing. This test is used for clinical purposes. Testing is performed at the [facility]. Radha Riddle MD LAB URINE ORDERABLES Final Res ult Performing Organization Address [facility] Co de Phone Number [facility] [address] [place] [address] * (ABNORMAL) Cocaine Metabolite Confirm Urine (11/21/2022 9:56 PM EST) Benzoylecgonine >1,000(H) <50 ng/mL 2:10 PM EST [facility] Urine Urine specimen obtained by clean catch procedure / Unknown Non-blood Collection / Unknown 11/21/2022 9:56 PM EST 11/21/2022 10:01 PM EST Narrative [facility] - 11/23/2022 2:10 PM EST Drug analysis is confirmed by LC-MS/MS (LC Tandem Mass Spectrometry) on Urine specimens. ?? This test was developed and its performance characteristics determined by [facility]. It has not been cleared or approved by the FDA. The laboratory is regulated under CLIA as qualified to perform high-complexity testing. This test is used for clinical purposes. Testing is performed at the [facility]. Radha Riddle MD LAB URINE ORDERABLES Final Res ult Performing Organization Address [facility] de Phone Number [facility] [address] [place] [address] * (ABNORMAL) THC Urine Confirm LCMSMS (11/21/2022 9:56 PM EST) 9 Carboxy THC 22(H) <10 ng/mL 11/23/2022 2:09 PM EST [facility] 9 Carboxy THC Glucuronide 330(H) <25 ng/mL 11/23/2022 2:09 PM EST [facility] Urine Urine specimen obtained by clean catch procedure / Unknown Non-blood Collection / Unknown 11/21/2022 9:56 PM EST 11/21/2022 10:01 PM EST Narrative [facility] - 11/23/2022 2:09 PM EST Drug analysis is confirmed by LC-MS/MS (LC Tandem Mass Spectrometry) on Urine specimens. ?? This test was developed and its performance characteristics determined by [facility]. It has not been cleared or approved by the FDA. The laboratory is regulated under CLIA as qualified to perform high-complexity testing. This test is used for clinical purposes. Testing is performed at the [facility]. us Radha Riddle MD LAB URINE ORDERABLES Final Res ult Performing Organization Address [facility] Co de Phone Number [facility] [address] [place] [address] * Urinalysis Microscopic Examination (11/21/2022 9:56 PM EST) Urine Urine specimen obtained by clean catch procedure / Unknown Non-blood Collection / Unknown 11/21/2022 9:56 PM EST 11/21/2022 10:01 PM EST Radha Riddle MD LAB URINE ORDERABLES Final Res ult [facility] [address] [place] [id number] * Drug abuse screen (11/21/2022 9:56 PM EST) Amphetamine Screen Urine Negative Cutoff: 500 ng/mL 11/21/2022 10:34 PM EST [facility] Benzodiazepines Screen Urine Negative Cutoff: 200 ng/mL 11/21/2022 10:34 PM EST [facility] Cannabinoid Screen Urine Presumptive positive. Confirmation by LC-MS/MS to follow. Cutoff: 50 ng/mL 11/21/2022 10:34 PM EST [facility] Cocaine Screen Urine Presumptive positive. Confirmation by LC-MS/MS to follow. Cutoff: 300 ng/mL 11/21/2022 10:34 PM EST [facility] Barbiturate Screen Urine Negative Cutoff: 200 ng/mL 11/21/2022 10:34 PM EST [facility] Opiate Screen Urine Negative Cutoff: 300 ng/mL 11/21/2022 10:34 PM EST [facility] Methadone Screen Urine Presumptive positive. Confirmation by LC-MS/MS to follow. Cutoff: 300 ng/mL 11/21/2022 10:34 PM EST [facility] Buprenorphine Screen Urine Negative Cutoff: 10 ng/mL 11/21/2022 10:34 PM EST [facility] Fentanyl Screen Urine Negative Cutoff: 1 ng/mL 11/21/2022 10:34 PM EST [facility] Oxycodone Screen Urine Negative Cutoff: 100 ng/mL 11/21/2022 10:34 PM EST [facility] Urine Urine specimen obtained by clean catch procedure / Unknown Non-blood Collection / Unknown 11/21/2022 9:56 PM EST 11/21/2022 10:01 PM EST Radha Riddle MD LAB URINE ORDERABLES Final Res ult [facility] [address] [place] [address] * (ABNORMAL) Urinalysis with reflex microscopic (11/21/2022 9:56 PM EST) Color, Urine Yellow LAB URINALYSIS - AUTOMATED METHOD 11/21/2022 11:46 PM EST [facility] Clarity, Urine Cloudy LAB URINALYSIS - AUTOMATED METHOD 11/21/2022 11:46 PM EST [facility] Spec [place], Urine 1.011 <=1.005 to >=1.030 LAB URINALYSIS - AUTOMATED METHOD 11/21/2022 11:46 PM EST [facility] pH, Urine 6.0 4.5 to 8 LAB URINALYSIS - AUTOMATED METHOD 11/21/2022 11:46 PM EST [facility] Protein, Urine Negative Negative mg/dL LAB URINALYSIS - AUTOMATED METHOD 11/21/2022 11:46 PM EST [facility] Glucose, Urine Negative Negative mg/dL LAB URINALYSIS - AUTOMATED METHOD 11/21/2022 11:46 PM EST [facility] Ketones, Urine Negative Negative mg/dL LAB URINALYSIS - AUTOMATED METHOD 11/21/2022 11:46 PM EST [facility] Blood, Urine Negative Negative LAB URINALYSIS - AUTOMATED METHOD 11/21/2022 11:46 PM EST [facility] Bilirubin, Urine Negative Negative LAB URINALYSIS - AUTOMATED METHOD 11/21/2022 11:46 PM EST [facility] Urobilinogen, Urine 1.0 0.2 to 1.0 mg/dL LAB URINALYSIS - AUTOMATED METHOD 11/21/2022 11:46 PM EST [facility] Leukocytes, Urine Large(A) Negative LAB URINALYSIS - AUTOMATED METHOD 11/21/2022 11:46 PM EST [facility] Nitrite, Urine Negative Negative LAB URINALYSIS - AUTOMATED METHOD 11/21/2022 11:46 PM EST [facility] RBC, Urine 2 0 to 3 /HPF LAB URINALYSIS - AUTOMATED METHOD 11/21/2022 11:46 PM EST [facility] Comment:This result was prev [...] Trichomonas Present Absent 11/21/2022 11:46 PM EST [facility] Comment:This result was prev iously suppressed from the chart. Yeast (Budding and/or Pseudohyphae) Present(A) Absent 11/21/2022 11:46 PM EST [facility] Comment:This result was prev iously suppressed from the chart. Urine Urine specimen obtained by clean catch procedure / Unknown Non-blood Collection / Unknown 11/21/2022 9:56 PM EST 11/21/2022 10:01 PM EST Narrative [facility] - 11/21/2022 11:46 PM EST Performed by manual method us Radha Riddle MD LAB URINE ORDERABLES Final Res ult [facility] [address] [place] [id number] * XR Chest 1 View (11/21/2022 9:31 [...] CHEST 1 VIEW ordered by RADHA RIDDLE, [id number] CLINICAL INDICATION: ? seizure TECHNIQUE: XR CHEST 1 VIEW COMPARISON: None. FINDINGS: No consolidation or evidence of a significant effusion. No appreciable pneumothorax. Borderline cardiomegaly, with unremarkable cardiac and mediastinal contours. No free subdiaphragmatic gas. No acute osseous findings. Procedure Note Carter Hanson MD - 11/21/2022 Exam/Procedure: XR CHEST 1 VIEW ordered by RADHA RIDDLE, [id number] CLINICAL INDICATION: ? seizure TECHNIQUE: XR CHEST [...] LAB - 11/22/2022 12:23 PM EST The [email or web address] M2000 HCV test is a Real Time [...] ORDERABLES Final Res ult Performing Organization Address [facility] de Phone Number [facility] [address] [place] [address] * Salicylate level (11/21/2022 9:27 PM EST) Salicylate, Quantitative, Plasma <1.0 <25 mg/dL mg/dL 11/21/2022 9:56 PM EST [facility] Blood Venous blood specimen / Unknown Venipuncture / Unknown 11/21/2022 9:27 PM EST 11/21/2022 9:34 PM EST Narrative [facility] - 11/21/2022 9:56 PM EST Therapeutic Range: ? <25 mg/dL Supratherapeutic Level: ??>30 mg/dL Radha Riddle MD LAB BLOOD ORDERABLES Final Res ult Performing Organization Address [facility] de Phone Number [facility] [address] [place] [address] * (ABNORMAL) Acetaminophen, Quantitative, Plasma (11/21/2022 9:27 [...] ORDERABLES Final Res ult Performing Organization Address City/[facility]/ZIP Co de Phone Number [facility] [address] [place] [address] * HIV 1 & 2 Antibody/Antigen Screen (11/21/2022 9:27 PM EST) Pathologist [facility] HIV 1 & 2 Antibody/Antigen Screen Non Reactive Non Reactive 11/21/2022 10:28 PM EST [facility] Comment:Screening for HIV 1 & 2 antibodies, and P24 antigen is NONREACTIVE. No confirmatory testing is required. Blood Venous blood specimen / Unknown Venipuncture / Unknown 11/21/2022 9:27 PM EST 11/21/2022 9:52 PM EST Radha Riddle MD LAB BLOOD ORDERABLES Final Res ult Performing Organization Address [facility] Co de Phone Number [facility] [address] [place] [phone] * (ABNORMAL) CBC w/diff (11/21/2022 9:27 PM EST) Pathologist [facility] WBC Count 15.33(H) 3.70 - 10.30 10*3/uL LAB HEMATOLOGY METHOD 11/21/2022 9:36 PM EST [facility] RBC Count 4.03 3.90 - 5.20 10*6/uL LAB HEMATOLOGY METHOD 11/21/2022 9:36 PM EST [facility] HGB 12.3 11.2 - 15.7 g/dL LAB HEMATOLOGY METHOD 11/21/2022 9:36 PM EST [facility] HCT 36.7 34.0 - 45.0 % LAB HEMATOLOGY METHOD 11/21/2022 9:36 PM EST [facility] Platelet Count 332 155 - 369 10*3/uL LAB HEMATOLOGY METHOD 11/21/2022 9:36 PM EST [facility] MCV 91 79 - 98 fL LAB HEMATOLOGY METHOD 11/21/2022 9:36 PM EST [facility] MCH 30.5 26.0 - 32.0 pg LAB HEMATOLOGY METHOD 11/21/2022 9:36 PM EST [facility] MCHC 33.5 30.7 - 35.5 g/dL LAB HEMATOLOGY METHOD 11/21/2022 9:36 PM EST [facility] RDW 14.4 11.5 - 14.5 % LAB HEMATOLOGY METHOD 11/21/2022 9:36 PM EST [facility] MPV 8.9 8.8 - 12.5 fL LAB HEMATOLOGY METHOD 11/21/2022 9:36 PM EST [facility] nRBC 0.0 <=0.0 per 100 WBCs LAB HEMATOLOGY METHOD 11/21/2022 9:36 PM EST [facility] Differential Type Automated LAB HEMATOLOGY METHOD 11/21/2022 9:36 PM EST [facility] Neutrophils % 63.0 % LAB HEMATOLOGY METHOD 11/21/2022 9:36 PM EST [facility] Lymphocytes % 29.0 % LAB HEMATOLOGY METHOD 11/21/2022 9:36 PM EST [facility] Monocytes % 7.0 % LAB HEMATOLOGY METHOD 11/21/2022 9:36 PM EST [facility] Eosinophils % 1.0 % LAB HEMATOLOGY METHOD 11/21/2022 9:36 PM EST [facility] Basophils % 0.0 % LAB HEMATOLOGY METHOD 11/21/2022 9:36 PM [facility] Immature Granulocytes % 0.0 % LAB HEMATOLOGY METHOD 11/21/2022 9:36 PM [facility] Neutrophils Absolute 9.66(H) 1.60 - 6.10 10*3/uL LAB HEMATOLOGY METHOD 11/21/2022 9:36 PM EST [facility] Lymphocytes Absolute 4.38(H) 1.20 - 3.90 10*3/uL LAB HEMATOLOGY METHOD 11/21/2022 9:36 PM EST [facility] Monocytes Absolute 1.00(H) 0.30 - 0.90 10*3/uL LAB HEMATOLOGY METHOD 11/21/2022 9:36 PM [facility] Eosinophils Absolute 0.22 0.00 - 0.50 10*3/uL LAB HEMATOLOGY METHOD 11/21/2022 9:36 PM [facility] Basophils Absolute 0.03 0.00 - 0.10 10*3/uL LAB HEMATOLOGY METHOD 11/21/2022 9:36 PM [facility] Immature Granulocytes Absolute 0.04 0.00 - 0.06 10*3/uL LAB HEMATOLOGY METHOD 11/21/2022 9:36 PM [facility] Blood Venous blood specimen / Unknown Venipuncture / Unknown 11/21/2022 9:27 PM EST 11/21/2022 9:34 PM EST Narrative [facility] - 11/21/2022 9:36 PM EST Therapeutic decision making should be based on absolute values, rather than percentages. Radha Riddle MD LAB BLOOD ORDERABLES Final Res ult [facility] [address] [place] [address] * (ABNORMAL) Blood gas panel, venous (11/21/2022 9:27 PM EST) pH, Venous 7.37 7.32 - 7.43 LAB HEMATOLOGY METHOD 11/21/2022 9:36 PM EST [facility] pCO2, Venous 46 37 - 52 mmHg LAB HEMATOLOGY METHOD 11/21/2022 9:36 PM EST [facility] pO2, Venous 22(L) 25 - 40 mmHg LAB HEMATOLOGY METHOD 11/21/2022 9:36 PM EST [facility] SO2, Measured, Venous 39.5(L) 65 - 80 % LAB HEMATOLOGY METHOD 11/21/2022 9:36 PM EST [facility] Base Excess, Venous 0.8 -2.0 - 3.0 mmol/L LAB HEMATOLOGY METHOD 11/21/2022 9:36 PM EST [facility] Bicarbonate, Calculated, Venous 27(H) 22 - 26 mmol/L LAB HEMATOLOGY METHOD 11/21/2022 9:36 PM EST [facility] Hematocrit, Whole Blood 39.3 34.0 - 45.0 % LAB HEMATOLOGY METHOD 11/21/2022 9:36 PM EST [facility] Sodium, Whole Blood 146(H) 136 - 145 mmol/L LAB HEMATOLOGY METHOD 11/21/2022 9:36 PM EST [facility] Potassium, Whole Blood 2.9(L) 3.6 - 4.9 mmol/L LAB HEMATOLOGY METHOD 11/21/2022 9:36 PM EST [facility] Chloride, Whole Blood 111(H) 97 - 107 mmol/L LAB HEMATOLOGY METHOD 11/21/2022 9:36 PM EST [facility] Glucose, Whole Blood 84 74 - 99 mg/dL LAB HEMATOLOGY METHOD 11/21/2022 9:36 PM EST [facility] Lactate, Venous, Whole Blood 1.5 0.5 - 2.2 mmol/L LAB HEMATOLOGY METHOD 11/21/2022 9:36 PM EST [facility] Ionized Calcium, Whole Blood 4.8 4.6 - 5.1 mg/dL LAB HEMATOLOGY METHOD 11/21/2022 9:36 PM EST [facility] Blood Venous blood specimen / Unknown Venipuncture / Unknown 11/21/2022 9:27 PM EST 11/21/2022 9:34 PM EST Radha Riddle MD LAB BLOOD ORDERABLES Final Res ult Performing Organization Address [facility] de Phone Number [facility] [address] [place] [address] * hCG qualitative (11/21/2022 9:27 PM EST) Test Negative Negative 11/21/2022 10:06 PM EST [facility] Blood Venous blood specimen / Unknown Venipuncture / Unknown 11/21/2022 9:27 PM EST 11/21/2022 9:34 PM EST Narrative [facility] - 11/21/2022 10:06 PM EST Reference Range: Males and non- females: Negative. Radha Riddle MD LAB BLOOD ORDERABLES Final Res ult Performing Organization Address [facility] de Phone Number [facility] [address] [place] [address] * Ethyl Alcohol Plasma (11/21/2022 9:27 PM EST) Ethanol Plasma <10 <10 mg/dL 11/21/2022 10:21 PM EST [facility] Blood Venous blood specimen / Unknown Venipuncture / Unknown 11/21/2022 9:27 PM EST 11/21/2022 9:52 PM EST Narrative [facility] - 11/21/2022 10:21 PM EST Test performed by Gas Chromatography at the [facility]. This test was developed and its performance characteristics determined by [facility]. It has not been cleared or approved by the FDA.The laboratory is regulated under CLIA as qualified to perform high-complexity testing. This test is used for clinical purposes only. us Radha Riddle MD LAB BLOOD ORDERABLES Final Res ult Performing Organization Address City/[facility] Co de Phone Number [facility] [address] [place] [address] * Free T4, Plasma (11/21/2022 9:27 PM [...] ng/dL 3rd Trimester ??0.7??- 1.24 ng/dL Result [facility] Radha Riddle MD LAB BLOOD ORDERABLES Final Res ult Performing Organization Address [facility] de Phone Number [facility] [address] [place] [address] * Thyroid Stimulating Hormone, Plasma (11/21/2022 9:27 [...] 4.06 3rd Trimester ??0.3 ??- 3.7 Result [facility] Radha Riddle MD LAB BLOOD ORDERABLES Final Res ult Performing Organization Address City/[facility] Co de Phone Number [facility] [address] [place] [address] * Troponin now and 120 min (11/21/2022 9:27 PM EST) [facility] Troponin T, High Sensitivity, 0 Hour <6 <14 ng/L 11/21/2022 10:06 PM EST [facility] Blood Venous blood specimen / Unknown Venipuncture / Unknown 11/21/2022 9:27 PM EST 11/21/2022 9:34 PM EST Radha Riddle MD LAB BLOOD ORDERABLES Final Res ult [facility] [address] [place] [address] * (ABNORMAL) Magnesium (11/21/2022 9:27 PM EST) [facility] Magnesium, Plasma 1.8(L) 1.9 - 2.4 mg/dL 11/21/2022 10:15 PM EST [facility] Blood Venous blood specimen / Unknown Venipuncture / Unknown 11/21/2022 9:27 PM EST 11/21/2022 9:34 PM EST Radha Riddle MD LAB BLOOD ORDERABLES Final Res ult Performing Organization Address City/[facility]/ZIP Co de Phone Number [facility] [address] [place] [address] * (ABNORMAL) Hepatitis C Antibody - ED (11/21/2022 9:27 PM EST) [facility] Hepatitis C Antibody Positive(A ) Negative 11/21/2022 10:31 PM EST [facility] Blood Venous blood specimen / Unknown Venipuncture / Unknown 11/21/2022 9:27 PM EST 11/21/2022 9:52 PM EST Radha Riddle MD LAB BLOOD ORDERABLES Final Res ult [facility] [address] [place] [address] * (ABNORMAL) CMP (11/21/2022 9:27 PM EST) [facility] Glucose, Plasma 84 74 - 99 mg/dL 11/21/2022 10:15 PM EST [facility] BUN, Plasma 11 7 - 21 mg/dL 11/21/2022 10:15 PM [facility] Creatinine, Plasma 0.63 0.60 - 1.10 mg/dL 11/21/2022 10:15 PM [facility] BUN/Creatinine Ratio 17 11/21/2022 10:15 PM [facility] Sodium, Plasma 145 136 - 145 mmol/L 11/21/2022 10:15 PM [facility] Potassium, Plasma 3.1(L) 3.7 - 4.8 mmol/L 11/21/2022 10:15 PM [facility] Chloride, Plasma 111(H) 97 - 107 mmol/L 11/21/2022 10:15 PM [facility] CO2, Plasma 25 22 - 29 mmol/L 11/21/2022 10:15 PM [facility] Anion Gap 9 6 - 16 mmol/L 11/21/2022 10:15 PM [facility] Total Calcium, Plasma 8.9 8.9 - 10.2 mg/dL 11/21/2022 10:15 PM [facility] Total Protein 6.3 6.3 - 7.9 g/dL 11/21/2022 10:15 PM [facility] Albumin, Plasma 3.7 3.5 - 5.2 g/dL 11/21/2022 10:15 PM [facility] AST, Plasma 17 11 - 32 U/L 11/21/2022 10:15 PM [facility] ALT, Plasma 15 8 - 33 U/L 11/21/2022 10:15 PM [facility] Alkaline Phosphatase, Plasma 115(H) 35 - 104 U/L 11/21/2022 10:15 PM [facility] Total Bilirubin, Plasma <0.2(L) 0.2 - 1.1 mg/dL 11/21/2022 10:15 PM [facility] eGFRcr 122.6 mL/min/1.7 3m*2 11/21/2022 10:15 PM [facility] Comment: Reported eGFRcr in mL/min/1.73m2 is based the CKD-EPI 2020 equation that does not use a race coefficient. Effective 04/20/22 our laboratory changed the eGFR calculation to the CKD-EPI 2020 equation from the previously reported eGFR, based on the MDRD equation. ??For comparisons between the two equations, please see laboratory website: ??[email or web address] Blood Venous blood specimen / Unknown Venipuncture / Unknown 11/21/2022 9:27 PM EST 11/21/2022 9:34 PM EST us Radha Riddle MD LAB BLOOD ORDERABLES Final Res ult Performing Organization Address City/[facility]/ZIP Co de Phone Number [facility] [address] [place] [phone] * EKG now - STAT (adult) (11/21/2022 9:18 PM EST) EKG DIAGNOSIS CLASS Normal MUSE ECG Ventricular Rate 82 BPM MUSE ECG Atrial Rate 82 BPM MUSE ECG NE Interval 162 ms MUSE ECG QRSD Interval 92 ms MUSE ECG QT Interval 416 ms MUSE ECG QTC Interval 486 ms MUSE ECG P Corinth 60 degrees MUSE ECG R [place] 52 degrees MUSE ECG T Wave [place] 38 degrees MUSE ECG Diagnosis Normal sinus rhythm MUSE ECG Diagnosis Normal ECG MUSE ECG Diagnosis Confirmed by Marcelina Pal ([id number]) on 11/22/2022 2:18:33 PM MUSE ECG 11/21/2022 9:18 PM EST 11/22/2022 2:18 PM EST Radha Riddle MD ECG ORDERABLES Final Result Performing Organization Address City/[facility]/ZIP Co de Phone Number MUSE ECG documented [...] Guerrero) documented in this encounter Care Teams Director Appointment Relationship Specialty Start Date End Date Lc Hancock MD [address] [place] [address] PCP - General 02/05/21 documented as of this encounter
--- OUTSIDE RECORDS SUMMARY | 2024-08-09 10:51 | XMS_ITS | Encounter Summary ---
Author Organization Healthcare Address [address] [place] [address] Care Team Providers Care Smelter Operator Name Role Phone Lc Hancock MD Primary Care Provider [phone] Encounter Details Date Type Department Care Team [...] on filedocumented in this encounter Care Teams Smelter Operator Relationship Specialty Start Date End Date Lc Hancock MD [address] [place] [id number] PCP - General 02/05/21 documented as of this encounter
--- OUTSIDE RECORDS SUMMARY | 2024-08-09 10:51 | XMS_ITS | Encounter Summary ---
Author Organization [facility] Address [address] [place] [address] Care Team Providers Care Director New Product Name Role Phone Provider, No Known Primary Care Provider Unavail able Reason for Referral * Cardiac (Routine) - Closed Specialty Diagnoses / Procedures Referred By Skyler t Referred To Contact Diagnoses SVT (supraventricular tachycardia) Palpitations Procedures Holter Monitor - 72 Hour Up To 15 Days Diana Holland APRN [address] [place] [address] Phone: tel: fax: [facility] [address] [place] [address] Phone: tel: Referral ID Status Reason Start Date Expiration Date Visits Re quested Visits Authorized [id number] Closed 05/15/2023 05/14/2024 1 1 Reason for Visit * Reason Comments Establish Care * Consultation (Routine) - Closed Specialty Diagnoses / Procedures Referred By Contac t Referred To Contact Cardiology Diagnoses Irregular heart rate Referring, [place], [place] [id number] [place] [address] [place] [address] Phone: tel: fax: Referral ID Status Reason Start Date Expiration Date Visits Re quested Visits Authorized [id number] Closed 05/08/2023 05/07/2024 1 1 Encounter Details Date Type Department Care Team (Late st Contact Info) Description 05/15/2023 1:00 PM EDT Office Visit [facility] [address] [phone] Diana Holland APRN [address] [place] [address] SVT (supraventricular tachycardia) (Primary Dx); Screening for [...] - We will obtain records from previous oracle programmer analyst in [place]. Patient reportedly has had a full cardiac work-up in the last several years, including a left heart cath at [facility]. * Diana Holland APRN - 05/15/2023 [...] recently. She was previously followed by a oracle programmer analyst in [place] but recently moved back to [place]. She reports that she was taking a beta-mercedes and a cholesterol medicine in the past but has been out of that for several months. She also reports shortness of breath and occasional dizziness. She has had a full cardiac work-up in the past several years, including a left heart cath at [facility] that was reportedly normal. Patient's mother [...] - We will obtain records from previous oracle programmer analyst in [place]. Patient reportedly has had a full cardiac work-up in the last several years, including a left heart cath at [facility]. Orders: - Holter Monitor - 72 [...] T4 (05/25/2023) Blood us Diana E Trautwein LEARNING AND DEVELOPMENT COORDINATOR LAB BLOOD ORDERABLES Fin al Result Performing Organization Address [facility] Phone Number [facility]
[address] [place] [address], [place] [phone] * Lipid Panel (05/25/2023) Blood Diana E Trautwein LEARNING AND DEVELOPMENT COORDINATOR LAB BLOOD ORDERABLES Fin al Result Performing Organization Address [facility] Phone Number [facility]
[address] [place] [address], [place] [phone] * CBC & Differential (05/25/2023) Blood Diana E Trautwein LEARNING AND DEVELOPMENT COORDINATOR LAB BLOOD ORDERABLES Fin al Result Performing Organization Address [facility] Phone Number [facility]
[address] [place] [address], [place] [phone] * Comprehensive Metabolic Panel (05/25/2023) Blood Diana E Trautwein LEARNING AND DEVELOPMENT COORDINATOR LAB BLOOD ORDERABLES Fin al Result Performing Organization Address [facility] de Phone Number [facility]
[address] [place] [address], [place] [phone] * HOLTER MONITOR >48HRS UP TO 7 [...] this exam include Supraventricular tachycardia. Total beats: [id number]. Average HR: 86. Min HR: 46. Max [...] palpitations recently. She was previouslyfollowed by a oracle programmer analyst in [place] but recently moved back to [place].She reports that she was taking a beta-mercedes and a cholesterol medicinein the past but has been out of that for several months. She also reportsshortness of breath and occasional dizziness. She has had a full cardiacwork-up in the past several years, including a left heart cath at [facility] that was reportedly normal. Patient's mother [...] (66 ) Wt 88.5 kg (195 lb) OzG911% BMI 33.47 kg/m?? Estimated body mass index [...] - We will obtain records from previous oracle programmer analyst in [place].Patient reportedly has had a full cardiac work-up in the last severalyears, including a left heart cath at [facility]. Orders: - Holter Monitor - 72 [...] Palpitations documented in this encounter Care Teams Director New Product Relationship Specialty Start Date End Date Provider, [place] [address] PCP - General 05/15/23 documented as of this encounter
--- OUTSIDE RECORDS SUMMARY | 2024-08-09 10:51 | XMS_ITS | Clinical Summary ---
Author Organization [facility] Address [address] [place] [address] Care Team Providers Care Reliability Technologist Name Role Phone Provider, No Known Primary [...] - We will obtain records from previous encephalographer in [place]. Patient reportedly has had a full cardiac work-up in the last several years, including a left heart cath at [facility]. Palpitations 05/15/2023 Screening for lipid disorders [...] APRN LAB BLOOD ORDERABLES Fin al Result [facility]
[address] [place] [address], from Last 3 Months or Most Recently Relevant to Health Maintenance Insurance [employer] Care Teams Reliability Technologist Relationship Specialty Start Date End Date Provider, No Known [facility] [place] [address] PCP - General 05/15/23
--- OUTSIDE RECORDS SUMMARY | 2024-08-09 10:51 | XMS_ITS | Encounter Summary ---
Author Organization Healthcare Address [address] [place] [address] Care Team Providers Care Cloth Bleaching Range Back Tender Name Role Phone Lc Hancock MD Primary Care Provider [phone] Encounter Details Date Type Department Care Team [...] on filedocumented in this encounter Care Teams Cloth Bleaching Range Back Tender Relationship Specialty Start Date End Date Lc Hancock MD [address] [place] [address] PCP - General 02/05/21 documented as of this encounter
--- OUTSIDE RECORDS SUMMARY | 2024-08-09 10:51 | XMS_ITS | Encounter Summary ---
Author Organization [facility] Address [address] [place] [address] Care Team Providers Care Road Cutter Name Role Phone Provider, No Known Primary Care Provider Unavail able Reason for Visit * Reason Comments Rapid Heart Rate Encounter Details Date Type Department Care Team (Latest Contact Info) Description 06/15/2023 1:30 PM EDT Office Visit [facility] [address] [...] recently. She was previously followed by a bankruptcy law specialist in [place] but recently moved back to [place]. She reports that she was taking a beta-mercedes and a cholesterol medicine in [facility] but has been out of that for several months. She also reports shortness of breath and occasional dizziness. She has had a full cardiac work-up in the past several years, including a left heart cath at [facility] that was reportedly normal. Holter monitor [...] hyperlipidemia documented in this encounter Care Teams Road Cutter Relationship Specialty Start Date End Date Provider, [place] [address] PCP - General 05/15/23 documented as of this encounter
--- OUTSIDE RECORDS SUMMARY | 2024-08-09 10:51 | XMS_ITS | Clinical Summary ---
Author Organization Healthcare Address [address] [place] [address] Care Team Providers Care Nursing Clinical Director Name Role Phone Lc Hancock MD Primary Care Provider [phone] Allergies No known active allergies Medications No [...] 2013 [facility]-Cervical Cancer Screening 2022 [facility]HPV/Cotest 2022 [facility]-PWOGL-51 Vaccine (3 - 2022-24 season) 2024 02/24/2021, [...] Final Res ult [facility] [address] [place] [address] * (ABNORMAL) Hepatitis C Antibody - ED (11/21/2022 9:27 PM EST) Pathologist [facility] Hepatitis C Antibody Positive(A ) Negative 11/21/2022 10:31 PM EST [facility] Blood Venous blood specimen / Unknown Venipuncture / Unknown 11/21/2022 9:27 PM EST 11/21/2022 9:52 PM EST Trent Riddle MD LAB BLOOD ORDERABLES Final Res ult [facility] [address] [place] [address] from Last 3 Months or Most Recently Relevant to Health Maintenance Insurance MEDICAID Care Teams Nursing Clinical Director Relationship Specialty Start Date End Date Lc Hancock MD [address] [id number] PCP - General 02/05/21
[2024-08-09] MEDS: DAPTOmycin 500 MG in 0.9 % SODIUM CHLORIDE 50 ML 100 MG IV (11:01)
[2024-08-09] MEDS: 0.9 % SODIUM CHLORIDE 50 ML 100 ML IV (11:02)
[2024-08-09 11:05] VITALS: BP 97/60; PULSE 58; RESP 18; O2SAT 100
[2024-08-09 11:40] VITALS: BP 104/47; PULSE 84; RESP 18
== END 2024-08-09 11:40 | disposition home or self-care (01) ==
LOC: INF 10:50
PROVIDERS: PCP Nurse Practitioner Family; Visit Provider Nurse Practitioner Family
DX: L02.214 Cutaneous abscess of groin (principal)
CPT/HCPCS: 96365; J0878

== ENCOUNTER 2024-08-14 10:03 | Outpatient (CLI) | payer MEDICAID, SELFPAY | END 2024-08-14 23:59 | disposition home or self-care (01) | LOC: LAB.DROPOF 08-15 10:03 | PROVIDERS: PCP Nurse Practitioner Family; Visit Provider Nurse Practitioner Family | DX: L02.91 Cutaneous abscess, unspecified (principal) | CPT/HCPCS: 87070; 87077; 87205 ==

== ENCOUNTER 2024-09-11 08:47 | Outpatient (CLI) | payer MEDICAID, SELFPAY ==
[2024-09-11 09:03] VITALS: BMI 34.3
[2024-09-11 09:41] LABS: Chloride 111 mmol/L (98-107); Potassium 3.5 mmoL/L (3.5-5.1); Sodium 136 mmol/L (136-145)
[2024-09-11 09:44] LABS: Anion Gap 3.5 mEq/L (5-15); Basophils % 0.2 % (0.1-2.0); Blood Urea Nitrogen 15 mg/dl (7-17); Carbon Dioxide 25 mmol/L (22.0-30.0); Creatinine Clearance Estimated 193 mL/min (50-200); Eosinophils % 2.3 % (0.1-12.0); Estimated Glomerular Filt Rate 116 ml/min (>60); GFR (African American) 140 ML/MIN (>60); Hematocrit 41.1 % (37.0-47.0); Hemoglobin 14.2 g/dL (12.2-16.2); Lymphocytes % 23.3 % (10-50); Mean Corpuscular HGB Conc 34.5 g/dL (31.8-35.4); Mean Corpuscular Hemoglobin 31.3 pg (27.0-31.2); Mean Corpuscular Volume 90.7 fl (81-99); Mean Platelet Volume 9.5 fl (7.4-10.4); Monocytes % 6.8 % (1.7-9.3); Neutrophils % 67.1 % (37.0-80.0); Platelet Count 302 K/mm3 (142-424); Red Blood Count 4.53 M/mm3 (4.20-5.40); Red Cell Distribution Width 12.5 % (11.5-17.5); White Blood Count 10.5 K/mm3 (4.8-10.8)
[2024-09-11 09:45] LABS: Calcium 9.3 mg/dl (8.4-10.2); Eosinophils # 0.2 K/mm3 (0.0-0.4); Glucose 96 mg/dl (74-100); Lymphocytes # 2.5 K/mm3 (0.7-4.5); Monocytes # 0.7 K/mm3 (0.1-1.0); Neutrophils # 7.1 K/mm3 (1.8-7.8)
[2024-09-11 09:46] LABS: Urine Pregnancy, HCG Qual. Negative (Negative)
== END 2024-09-11 23:59 | disposition home or self-care (01) ==
LOC: PREOP 08:47
PROVIDERS: PCP Nurse Practitioner Family; Visit Provider Surgery
DX: L02.416 Cutaneous abscess of left lower limb (principal)
CPT/HCPCS: 80048; 81025; 85025

== ENCOUNTER 2024-09-16 07:10 | Day surgery (SDC) | payer MEDICAID, SELFPAY ==
[2024-09-11 09:18] VITALS: BMI 34.3
[2024-09-16] VITALS (11 sets, daily range): BP systolic 107–125; BP diastolic 51–92; PULSE 62–84; RESP 12–18; TEMP 36.1–36.5; O2SAT 95–100
[2024-09-16] MEDS: 0.9 % SODIUM CHLORIDE 1000ML 1,000 ML 25 ML IV (07:33)
[2024-09-16] MEDS: CLINDAMYCIN PHOSPHATE/D5W 900 MG/50 ML PIGGYBACK 100 MG IV (09:05)
--- NOTE | 2024-09-16 09:32 | EXP.OP.NOTE ---
Date of procedure: 09/16/24 Pre-op Diagnosis:: Abscess left groin hidradenitis suppurativa Post-op Diagnosis:: Same Procedure performed:: Incision and drainage left groin hidradenitis debridement of subdermal tissues Surgeon:: Zaire Inman MD RESIDENTIAL SERVICE TECHNICIAN:: Basim Villalba Anesthesia: local and LMA Estimated blood loss (mL): 5 Clinical Note:: Patient presents for incision and debridement of left groin hidradenitis. She is a 34-year-old female with history of hepatitis C referred by [facility] for left groin abscess. She states that the area has been present for several months. It has had intermittent exacerbation with drainage. She had been started on oral antibiotics initially. She did not see any improvement and was seen in the [facility] on 07/29/24. She did have cultures performed which revealed Staph cohnii ssp cohnii and Staph haemolyticus. Based on culture she was given a course of intravenous daptomycin. She followed up with her primary care provider on 08/14/2024. She had cultures performed on 08/14/2024 which revealed corynebacterium amycolatum/min and Dermatobacter hominis. She was sent for general surgical consultation and seen in the office on 09/03/2024. She had what appeared to be abscessed hidradenitis in the left groin area. Given its refractory nature I felt that incision and drainage with unroofing and debridement of granulation tissue would be warranted. . Operative findings:: Consistent with subdermal hidradenitis with purulent granulation tissue Operative note:: Consent was obtained patient was taken to the operating room. She was positioned supine position. General anesthesia was induced via LMA. She was positioned in somewhat of a frog-leg position with abduction of left thigh to expose the area. It was prepped and draped in the standard surgical fashion. There is an area of scar tissue with mild fluctuance. There were a couple of punctate areas 1 which had a drop of purulent drainage with pressure. Attempt was made to probe this without success. Limited incision was then made with electrocautery at this site. There was an underlying cavity of purulent granulation tissue. Probe was used to delineate the boundaries and it was opened for a couple of centimeters exposing the chronically infected granulation tissue. This was then debrided using a small curette. There was good hemostasis. Local anesthetic was infiltrated. The wound was packed with dry gauze and covered with clean dry sterile dressing. Condition: stable Disposition: PACU Complications:: None immediately apparent
--- NOTE | 2024-09-16 09:39 | EXP.ANES.I ---
[facility] Anesthesia Record Part I Anesthesia Record I Intake, IV Amount: 1,100 Hydration: Not Adequate Estimated blood loss (mL): 3 Urine output (mL): 0 Blood Products used (#): none Blood Pressure: 125/59 SaO2: 96 Pulse Rate: 84 Airway Patency: Patent Respiratory Rate: 12 Temperature: 97.7 F Patient is:: Drowsy and Stable Stable to PACU at:: 09:35
--- NOTE | 2024-09-16 09:42 | P.PNANES_ITS ---
[facility] Anesthesia Record Part I Anesthesia Record I Intake, IV Amount: 1,100 Hydration: Adequate Estimated blood loss (mL): 3 Urine output (mL): 0 Blood Products used (#): none Blood Pressure: 125/51 SaO2: 95 Pulse Rate: 74 Airway Patency: Patent Respiratory Rate: 12 Temperature: 97.7 F Patient is:: Drowsy and Stable Stable to PACU at:: 09:35
--- NOTE | 2024-09-16 09:43 | EXP.ANES.CKL ---
[facility] Disclaimer: The information contained in this section may have been updated after the patient was seen, as this information can be updated by other users. Medical History History of hepatitis C Sinus bradycardia Syncope HTN (hypertension) Bipolar 1 disorder Surgical History History of tooth extraction History of tubal ligation History of appendectomy Family History Other Family history of cancer Social History Smoking Status: Current every day smoker alcohol intake: never substance use type: marijuana, crack/cocaine and IV drugs current occupational status: employed Travel in the last 8 weeks: None Have you lived/traveled outside US in past 30 days?: No Contact w/someone who lives/traveled outside US past 30 days?: No Exposure to someone with infectious disease in past 14 days?: No Do you have a fever (greater than 100.4 F or 38 C)?: No Have you tested positive for COVID-19: No Exposed to someone with COVID-19 in past 14 days?: No Do you have a sore throat?: No Do you have a cough?: No Do you have any weakness?: No Do you have any diarrhea?: No Are you experiencing any unusual bleeding?: No Do you have any muscle aches/pain?: No Do you have any abdominal pain?: No Are you experiencing loss of taste or smell?: No [facility] Anesthesia Checklist Patient Identification Patient Identification: Verbal (Name & ) Structural Data Admitted From: Home Planned Operative Procedure/s: i/d groin abcess NPO Status Verified Time NPO: 00:00 Additional verifications Anesthesia Reactions: No Hx Blood Transfusions: No Blood Transfusion Reaction: No Airway Assessment Mallampati Score:: Class II C-Spine Mobility Assessed: Yes TMJ Mobility Assessed: Yes Dentition: Edentulous Neurological Assessment Level of Consciousness: Awake, Alert and Appropriate Anesthesia Plan Anesthesia Risk discussed: Yes Anesthesia Plan: Verified ASA Class: II Anesthesia Type: General
[2024-09-16] MEDS: MORPHINE 2MG/ML SYRINGE 2 MG IV ×2 (10:00→10:10)
--- NOTE | 2024-09-16 11:28 | EXP.ANES.II ---
[facility] Anesthesia Record Part II Anesthesia Record Part II Discharge Time: 10:15 Destination: Surgical Day Care (OP Surgery) PACU nurse assessment reviewed?: Yes Patient Condition:: Good Anesthesia Complications:: None Swallowing reflex intact?: Yes Airway Patency: Patent Cyanosis?: No Blood Pressure: 111/92 SaO2: 100 Respiratory Rate: 18 Pulse Rate: 81 Temperature: 97.7 F Mental Status: Alert & Oriented Pain level:: 5 Nausea and/or vomitting:: None Intake, IV Amount: 0 Hydration: Adequate
== END 2024-09-16 10:45 | disposition home or self-care (01) ==
PROVIDERS: PCP Nurse Practitioner Family; Visit Provider Surgery
PROC: (CPT 10060; principal; 2024-09-16 09:15)
DX: L02.214 Cutaneous abscess of groin (principal); B96.89 Other specified bacterial agents as the cause of diseases classified elsewhere
CPT/HCPCS: 10060; 96374; J0736; J2250; J2270; J3010; J7030

== ENCOUNTER 2024-09-18 17:01 | Emergency (ER) | payer MEDICAID, SELFPAY ==
[2024-09-18 17:10] VITALS: BP 114/79; PULSE 114; RESP 18; TEMP 36.8; O2SAT 100; BMI 34.3
--- NOTE | 2024-09-18 17:23 | HMH.EDGENADL ---
Discharge Plan Disposition Patient Disposition: Home, Self-Care Condition: Good Chief Complaint: Skin/Abscess/Foreign Body Prescriptions Prescriptions: No Action metoprolol succinate 50 mg tablet extended release 24 hr 50 mg PO DAILY Qty: 90 3RF Trintellix 5 mg tablet 5 mg PO DAILY ondansetron 8 mg tablet,disintegrating 8 mg PO Q12H Qty: 30 0RF furosemide 20 mg tablet 20 mg PO DAILY Qty: 30 5RF oxcarbazepine 300 mg tablet 300 mg PO DAILY amitriptyline 25 mg tablet 25 mg PO HS Patient Comments: TAKE 1 TABLET BY MOUTH ONCE DAILY AT BEDTIME mirtazapine 30 mg tablet 30 mg PO HS Patient Comments: TAKE 1 TABLET BY MOUTH ONCE DAILY AT BEDTIME aripiprazole 10 mg tablet 10 mg PO DAILY Patient Comments: TAKE 1 TABLET BY MOUTH ONCE DAILY sofosbuvir-velpatasvir 400-100 mg tablet 1 tab PO DAILY Patient Comments: TAKE ONE TABLET BY MOUTH EVERY DAY Caplyta 42 mg capsule 42 mg PO DAILY Patient Comments: TAKE 1 CAPSULE BY MOUTH ONCE DAILY Referrals Follow up/Referrals: Pj Hoover APRN [Primary Care Provider] - See instructions Zaire Inman MD [Staff Physician] - See instructions Activity Restrictions/Add. Instructions Additional Instructions/Restrictions: You were evaluated in the emergency department today. At this time, your wound looks good. Please continue keeping it clean and dry as instructed by general surgery. Do not submerge underwater. Expect some clear to blood-tinged drainage, as this is normal. Return to the emergency department for new or worsening symptoms, such as significant redness or warmth, pus draining from the wound, or significant increase in pain and swelling. Follow-up outpatient with Dr. Inman as scheduled. Clinical Impressions Clinical Impression: Encounter for postoperative wound check Instructions Patient Instructions: Hidradenitis Suppurativa, DI for Incision and Drainage Print Language Print Language: Slovenian Discharge ED Provider: Neema Rich General Adult HPI General Chief complaint: Skin/Abscess/Foreign Body Stated complaint: packing leaking from surgery Monday Time Seen by Provider: 09/18/24 17:10 Mode of Arrival: Ambulatory Source of Information: Patient Limitations: No Limitations Description of Symptoms (Recalled from ER Triage Doc. by RN): pt states that she had surgery to abscess on inner left thigh on monday. bandage in draining and would like to have it looked at. History of Present Illness HPI narrative: This patient is a 34-year-old female with a history of hidradenitis suppurativa status post incision and drainage of cutaneous abscess 09/16/2024 presenting with concern that she is having drainage from the lesion. She states the drainage is clear to blood-tinged and she was concerned that something could be wrong. She states that she has burning pain at the site but no other concerns or complaints. No fevers or other systemic symptoms. Related Data Home Medications ?Medication ?Instructions ?Recorded ?Confirmed amitriptyline 25 mg tablet 25 mg PO HS 07/23/24 09/16/24 aripiprazole 10 mg tablet 10 mg PO DAILY 07/23/24 09/16/24 lumateperone 42 mg capsule 42 mg PO DAILY 07/23/24 09/16/24 (Caplyta) mirtazapine 30 mg tablet 30 mg PO HS 07/23/24 09/16/24 oxcarbazepine 300 mg tablet 300 mg PO DAILY 07/23/24 09/16/24 sofosbuvir 400 mg-velpatasvir 100 1 tab PO DAILY 07/23/24 09/16/24 mg tablet vortioxetine 5 mg tablet 5 mg PO DAILY 09/03/24 09/16/24 (Trintellix) Previous Rx's ?Medication ?Instructions ?Recorded ondansetron 8 mg disintegrating 8 mg PO Q12H n/v #30 tabs 08/05/24 tablet furosemide 20 mg tablet 20 mg PO DAILY #30 tabs 08/19/24 metoprolol succinate 50 mg 50 mg PO DAILY #90 tabs 08/19/24 tablet,extended release 24 hr Allergies Allergy/AdvReac Type Severity Reaction Status Date / Time No Known Allergies Allergy Verified 09/03/24 10:22 [facility] Disclaimer: The information contained in this section may have been updated after the patient was seen, as this information can be updated by other users. Medical History History of hepatitis C Sinus bradycardia Syncope HTN (hypertension) Bipolar 1 disorder Surgical History History of tooth extraction History of tubal ligation History of appendectomy Family History Other Family history of cancer Social History Smoking Status: Current every day smoker alcohol intake: never substance use type: marijuana, crack/cocaine and IV drugs current occupational status: employed Travel in the last 8 weeks: None Have you lived/traveled outside US in past 30 days?: No Contact w/someone who lives/traveled outside US past 30 days?: No Exposure to someone with infectious disease in past 14 days?: No Do you have a fever (greater than 100.4 F or 38 C)?: No Have you tested positive for COVID-19: No Exposed to someone with COVID-19 in past 14 days?: No Do you have a sore throat?: No Do you have a cough?: No Do you have any weakness?: No Do you have any diarrhea?: No Are you experiencing any unusual bleeding?: No Do you have any muscle aches/pain?: No Do you have any abdominal pain?: No Are you experiencing loss of taste or smell?: No Other Medical History Have you received the Flu Vaccine for this season: No Have you received the Pneumonia Vaccine: No ROS Obtained: Yes All systems reviewed & no additional complaints except as documented Physical Exam General General appearance: alert and in no apparent distress Head Head exam: atraumatic and normocephalic Eye Eye exam: Present normal appearance, PERRL and EOMI ENT ENT exam: Present normal exam, normal oropharynx, mucous membranes moist and normal external ear exam Neck Neck exam: Present normal inspection, full ROM and trachea midline; Absent tenderness Chest Chest inspection: Present normal inspection and symmetric chest wall rise; Absent tenderness Respiratory Respiratory exam: Present normal lung sounds bilaterally; Absent respiratory distress, wheezes, stridor or accessory muscle use Cardiovascular Cardiovascular exam: Present regular rate and normal rhythm Abdominal Exam Abdominal exam: Present soft; Absent distention, tenderness or guarding Extremities Exam Extremities exam: Present normal inspection, full ROM and normal capillary refill; Absent tenderness or edema Back Exam Back exam: Present normal inspection and full ROM; Absent tenderness Neurological Exam Neurological exam: Present alert, oriented X3, CN II-XII intact and normal gait; Absent motor sensory deficit Psychiatric Psychiatric exam: Present normal affect and normal mood Skin Skin exam: Present warm, dry and other (site of I&D in left groin is clean and dry with healthy pink granulation tissue inside wound. No pus, purlenece, necrosis. No surrounding erythema or warmth.) Medical Decision Making Medical Records Medical records reviewed: Yes I reviewed the patient's medical records. Screening: Per USPSTF and CDC recommendations, given the prevalence of disease in our region, it is our hospital?s policy to screen for HIV and viral Hepatitis for all patients aged 18 and over and those with ongoing risk factors. Shayan Inquiry Pt receiving controlled substance: No Vital Signs: 09/18/24 17:10 Temperature 98.3 F Temperature Source Oral Pulse Rate [Right Radial] 114 H Respiratory Rate 18 Blood Pressure [Right Arm] 114/79 Blood Pressure Mean [Right Arm] 90 02 Sat by Pulse Oximetry 100 Oxygen Delivery Method Room Air Lab Data Lab results reviewed: Yes I reviewed the patient's lab results. Medical Decision Narrative: In summary, this patient is a 34-year-old female presenting to the Emergency Department for evaluation of drainage from left groin incision and drainage site. Differential diagnoses considered include but are not limited to infected wound, normal post I&D fluid drainage. Ruling out the most morbid conditions drove assessment. It should be noted patient's history includes hidradenitis suppurativa, hepatitis C which likely are not at goal therapy. This complicates all aspects of care by increasing patient's risk for morbidity. I reviewed patient's past medical records and noted surgical incision and drainage 2 days ago as detailed in HPI. On exam, the patient is well-appearing. Her surgical site is clean, dry, and has healthy pink granulation tissue with no purulence, redness, or warmth. I considered repacking the wound, however at this time he looks very good and I do not feel that this is indicated. I feel she has appropriate serosanguineous drainage based on my assessment of the bandage that was on her wound. New sterile bandage was placed. At this time, I feel that she department for discharge home with continued plan for outpatient follow-up with general surgery. She was given strict return precautions and instructions for wound care at home. She was discharged after all questions were answered Critical Care Critical Care Time Critical Care Time: No
[2024-09-18 17:35] VITALS: BP 114/78; PULSE 114; RESP 18; TEMP 36.8; O2SAT 100
== END 2024-09-18 17:36 | disposition home or self-care (01) ==
PROVIDERS: Emergency Provider Emergency Medicine; PCP Nurse Practitioner Family
DX: Z48.89 Encounter for other specified surgical aftercare (principal); R10.2 Pelvic and perineal pain
CPT/HCPCS: 99281

== ENCOUNTER 2025-01-04 08:01 | Emergency (ER) | payer MEDICAID, SELFPAY ==
[2025-01-04 08:01] VITALS: BP 118/78; PULSE 66; RESP 18; TEMP 36.7; O2SAT 99; BMI 31.0
--- NOTE | 2025-01-04 08:12 | PC.NURSE ---
dr jorge at bedside
[2025-01-04] MEDS: LIDOCAINE 2% UROJET 10ML TP (08:23)
[2025-01-04] MEDS: KETOROLAC 30MG/ML VIAL 30 MG IM (08:25)
[2025-01-04] MEDS: ACETAMINOPHEN 500MG TAB 1000 MG PO (08:25)
[2025-01-04 08:31] VITALS: BP 118/78; PULSE 66; RESP 18; TEMP 36.6; O2SAT 99
--- NOTE | 2025-01-04 08:39 | ED_ITS ---
Discharge Plan Disposition Patient Disposition: Home, Self-Care Condition: Good Prescriptions Prescriptions: New mcyabtqwg-dgdatutbskieod-pewx 3-2.5 % (7 gram) kit 1 applic RI HS PRN (Reason: pain) Qty: 1 2RF hydrocortisone [Anusol-HC] 2.5 % cream with perineal applicator 1 applic RI BID PRN (Reason: hemorrhoids) Qty: 30 0RF polyethylene glycol 3350 [Miralax] 17 gram/dose powder 17 g PO DAILY Qty: 510 0RF No Action dicyclomine 20 mg tablet 20 mg PO QID Qty: 120 2RF Lactobacillus rhamnosus GG 10 billion cell capsule 1 cap PO BID Qty: 60 0RF metoprolol succinate 50 mg tablet extended release 24 hr 50 mg PO DAILY Qty: 90 3RF Trintellix 5 mg tablet 5 mg PO DAILY ondansetron 8 mg tablet,disintegrating 8 mg PO Q12H Qty: 30 0RF furosemide 20 mg tablet 20 mg PO DAILY Qty: 30 5RF sofosbuvir-velpatasvir 400-100 mg tablet See Rx Instructions .ROUTE .COMPLEX Qty: 28 2RF Dose Instruction: TAKE ONE TABLET BY MOUTH EVERY DAY Rx Instructions: TAKE ONE TABLET BY MOUTH EVERY DAY oxcarbazepine 300 mg tablet 300 mg PO DAILY amitriptyline 25 mg tablet 25 mg PO HS Patient Comments: TAKE 1 TABLET BY MOUTH ONCE DAILY AT BEDTIME mirtazapine 30 mg tablet 30 mg PO HS Patient Comments: TAKE 1 TABLET BY MOUTH ONCE DAILY AT BEDTIME aripiprazole 10 mg tablet 10 mg PO DAILY Patient Comments: TAKE 1 TABLET BY MOUTH ONCE DAILY Caplyta 42 mg capsule 42 mg PO DAILY Patient Comments: TAKE 1 CAPSULE BY MOUTH ONCE DAILY Referrals Follow up/Referrals: Zaire Inman MD [Staff Physician] - See instructions Pj Hoover APRN [Primary Care Provider] - See instructions Devang Stanley II, MD [Staff Physician] - See instructions Merlin Flores MD [Staff Physician] - See instructions Activity Restrictions/Add. Instructions Additional Instructions/Restrictions: You were evaluated in the emergency department today. At this time, we are p rescribing you medications to treat your symptoms. Also recommend sitz bath's to help with the pain and swelling. I am prescribing you MiraLAX to make sure you maintain soft stools, as any sort of straining can make your hemorrhoids worse. Take Tylenol and ibuprofen every 4-6 hours as needed for pain. Return to the emergency department for new or worsening symptoms Clinical Impressions Clinical Impression: Prolapsed external hemorrhoids Stand Alone Forms Stand Alone Forms: Work/School Release Instructions Patient Instructions: DI for Hemorrhoids Print Language Print Language: Jordanian Discharge ED Provider: Neema Rich General Adult HPI General Chief complaint: Skin/Abscess/Foreign Body Stated complaint: Hem Time Seen by Provider: 01/04/25 08:05 Mode of Arrival: Ambulatory Source of Information: Patient Description of Symptoms (Recalled from ER Triage Doc. by RN): Pt reports a hemorrhoid that is buldging out. Pt reports no bleeding noted. Pt reports painful, states she has tried to push it back in but it will not stay in. Pt states no bleeding noted. Pt reports using hemorroid cream to help with pain. History of Present Illness HPI narrative: This patient is a 34-year-old female with a history of hepatitis C status posttreatment presenting to the emergency department for evaluation with concern for hemorrhoid. Patient states that she has a hemorrhoid that is bulging out. She notes history of difficult and painful hemorrhoids in the past. Patient states that the hemorrhoid is painful and she is try to push it back in but it will not stand. She bought pcnx-owm-ubcbuxy cream without good improvement. Sh e denies any fevers, chills, abdominal pain, nausea, vomiting, blood in stools, dark tarry stools, or other concerns. Related Data Home Medications ?Medication ?Instructions ?Recorded ?Confirmed amitriptyline 25 mg tablet 25 mg PO HS 07/23/24 12/24/24 aripiprazole 10 mg tablet 10 mg PO DAILY 07/23/24 12/24/24 lumateperone 42 mg capsule 42 mg PO DAILY 07/23/24 12/24/24 (Caplyta) mirtazapine 30 mg tablet 30 mg PO HS 07/23/24 12/24/24 oxcarbazepine 300 mg tablet 300 mg PO DAILY 07/23/24 12/24/24 vortioxetine 5 mg tablet 5 mg PO DAILY 09/03/24 12/24/24 (Trintellix) Previous Rx's ?Medication ?Instructions ?Recorded ondansetron 8 mg disintegrating 8 mg PO Q12H n/v #30 tabs 08/05/24 tablet furosemide 20 mg tablet 20 mg PO DAILY #30 tabs 08/19/24 metoprolol succinate 50 mg 50 mg PO DAILY #90 tabs 08/19/24 tablet,extended release 24 hr sofosbuvir 400 mg-velpatasvir 100 See Rx Instructions .Route 09/19/24 mg tablet .COMPLEX #28 tabs Lactobacillus rhamnosus GG 10 1 cap PO BID #60 caps 12/24/24 billion cell capsule dicyclomine 20 mg tablet 20 mg PO QID #120 tabs 12/24/24 hydrocortisone 2.5 % topical cream 1 applic RI BID PRN hemorrhoids 01/04/25 with perineal applicator #30 grams (Anusol-HC) aukeszazi-unewslnftccgdt-heej vera 1 applic RI HS PRN pain #1 ea 01/04/25 3 %-2.5 % (7 gram) rectal kit polyethylene glycol 3350 17 17 g PO DAILY #510 grams 01/04/25 gram/dose oral powder (Miralax) Allergies Allergy/AdvReac Type Severity Reaction Status Date / Time No Known Allergies Allergy Verified 12/24/24 15:30 [facility] Disclaimer: The information contained in this section may have been updated after the patient was seen, as this information can be updated by other users. Medical History History of hepatitis C Sinus bradycardia Syncope HTN (hypertension) Bipolar 1 disorder Surgical History History of tooth extraction History of tubal ligation History of appendectomy Family History Other Family history of cancer Social History Smoking Status: Current every day smoker alcohol intake: never substance use type: marijuana, crack/cocaine and IV drugs current occupational status: employed Travel in the last 8 weeks: None Have you lived/traveled outside US in past 30 days?: No Contact w/someone who lives/traveled outside US past 30 days?: No Exposure to someone with infectious disease in past 14 days?: No Do you have a fever (greater than 100.4 F or 38 C)?: No Have you tested positive for COVID-19: No Exposed to someone with COVID-19 in past 14 days?: No Do you have a sore throat?: No Do you have a cough?: No Do you have any weakness?: No Do you have any diarrhea?: No Are you experiencing any unusual bleeding?: No Do you have any muscle aches/pain?: No Do you have any abdominal pain?: No Are you experiencing loss of taste or smell?: No Other Medical History Have you received the Flu Vaccine for this season: No Have you received the Pneumonia Vaccine: No ROS Obtained: Yes All systems reviewed & no additional complaints except as documented Physical Exam General General appearance: alert and in no apparent distress Head Head exam: atraumatic and normocephalic Eye Eye exam: Present normal appearance, PERRL and EOMI ENT ENT exam: Present normal exam, normal oropharynx, mucous membranes moist and normal external ear exam Neck Neck exam: Present normal inspection, full ROM and trachea midline; Absent tenderness Chest Chest inspection: Present normal inspection and symmetric chest wall rise; Absent tenderness Respiratory Respiratory exam: Present normal lung sounds bilaterally; Absent respiratory distress, wheezes, stridor or accessory muscle use Cardiovascular Cardiovascular exam: Present regular rate and normal rhythm Abdominal Exam Abdominal exam: Present soft; Absent distention, tenderness or guarding Rectal Exam Rectal exam: Present hemorrhoids comment: Large external hemorrhoid that is not thrombosed, significant tenderness to palpation Extremities Exam Extremities exam: Present normal inspection, full ROM and normal capillary refill; Absent tenderness or edema Back Exam Back exam: Present normal inspection and full ROM; Absent tenderness Neurological Exam Neurological exam: Present alert, oriented X3, CN II-XII intact and normal gait; Absent motor sensory deficit Psychiatric Psychiatric exam: Present normal affect and normal mood Skin Skin exam: Present warm and dry Medical Decision Making Medical Records Medical records reviewed: Yes I reviewed the patient's medical records. Screening: Per USPSTF and CDC recommendations, given the prevalence of disease in our region, it is our hospital?s policy to screen for HIV and viral Hepatitis for all patients aged 18 and over and those with ongoing risk factors. Shayan Inquiry Pt receiving controlled substance: No Vital Signs: 01/04/25 08:01 01/04/25 08:31 Temperature 98.0 F 97.9 F Temperature Source Oral Pulse Rate 66 Pulse Rate [Right Radial] 66 Respiratory Rate 18 18 Blood Pressure 118/78 Blood Pressure [Right Arm] 118/78 Blood Pressure Mean [Right Arm] 91 Blood Pressure Source [Right Arm] Automatic Cuff Blood Pressure Position [Right Arm] Sitting 02 Sat by Pulse Oximetry 99 Oxygen Delivery Method Room Air Room Air Lab Data Lab results reviewed: Yes I reviewed the patient's lab results. Orders (Tests/Meds): ED MEDICATIONS Discontinued Medications Generic Name Dose Route Start Last Admin Trade Name Dolly PRN Reason Stop Dose Admin Acetaminophen 1,000 mg 01/04/25 08:17 01/04/25 08:25 Acetaminophen 500mg Tab PO 01/04/25 08:18 1,000 mg ONCE ONE Administration Cocaine HCl 1 ml 01/04/25 08:16 Cocaine 4% Topical Soln 4ml Bottle TP 01/04/25 08:17 ONCE ONE Epinephrine HCl 1 mg 01/04/25 08:16 Epinephrine 1 Mg/Ml Ampul TP 01/04/25 08:17 ONCE ONE Ketorolac Tromethamine 30 mg 01/04/25 08:16 01/04/25 08:25 Ketorolac 30mg/Ml Vial IM 01/04/25 08:17 30 mg ONCE ONE Administration Lidocaine HCl 1 ml 01/04/25 08:16 01/04/25 08:23 Lidocaine 2% Urojet 10ml TP 01/04/25 08:17 1 ml ONCE ONE Administration Medical Decision Narrative: In summary, this patient is a 34-year-old female presenting to the Emergency Department for evaluation of large bulging hemorrhoid that is painful. Differential diagnoses considered include but are not limited to external hemorrhoid, internal hemorrhoids with prolapse, thrombosed hemorrhoid, perianal abscess, perirectal abscess. Ruling out the most morbid conditions drove assessment. It should be noted patient's history includes hepatitis C which is reportedly at goal therapy. This complicates all aspects of care by increasing patient's risk for morbidity. I reviewed patient's past medical records and noted prior to PCP evaluations for maintenance of health issues, including anxiety and issues with abdominal pain. On exam, the patient has a large external hemorrhoid that is tender to palpation. It is not thrombosed. No evidence of perianal or perirectal abscess. At this time, I feel patient is appropriate for discharge with treatment of Anusol and topical rectal lidocaine to have as needed for pain. I also prescribed MiraLAX to help keep stools soft and prevent worsening of hemorrhoid. I gave her instructions for close follow-up with either GI or general surgery and gave strict return precautions. She was discharged after all questions were answered. Critical Care Critical Care Time Critical Care Time: No
== END 2025-01-04 08:35 | disposition home or self-care (01) ==
PROVIDERS: Emergency Provider Emergency Medicine; PCP Nurse Practitioner Family
DX: K64.8 Other hemorrhoids (principal); K62.89 Other specified diseases of anus and rectum
CPT/HCPCS: 96372; 99283; J1885

== ENCOUNTER 2025-01-07 17:09 | Emergency (ER) | payer MEDICAID, SELFPAY ==
[2025-01-07 18:32] VITALS: BP 111/62; PULSE 67; RESP 16; TEMP 36.8; O2SAT 100; BMI 30.9
--- NOTE | 2025-01-07 19:11 | ED_ITS ---
<Statement entered by Neema Rich DO - 01/07/25 23:35> I was consulted by the DANITA, and we discussed the complexity of the problems being addressed. I approved the treatment and management plan for this patient's care in the emergency department, thus performing a substantive portion of the medical decision making. Neema Rich DO Discharge Plan Disposition Patient Disposition: Home, Self-Care Condition: Good Prescriptions Prescriptions: No Action dicyclomine 20 mg tablet 20 mg PO QID Qty: 120 2RF Lactobacillus rhamnosus GG 10 billion cell capsule 1 cap PO BID Qty: 60 0RF metoprolol succinate 50 mg tablet extended release 24 hr 50 mg PO DAILY Qty: 90 3RF Trintellix 5 mg tablet 5 mg PO DAILY ondansetron 8 mg tablet,disintegrating 8 mg PO Q12H Qty: 30 0RF furosemide 20 mg tablet 20 mg PO DAILY Qty: 30 5RF sofosbuvir-velpatasvir 400-100 mg tablet See Rx Instructions .ROUTE .COMPLEX Qty: 28 2RF Dose Instruction: TAKE ONE TABLET BY MOUTH EVERY DAY Rx Instructions: TAKE ONE TABLET BY MOUTH EVERY DAY oxcarbazepine 300 mg tablet 300 mg PO DAILY amitriptyline 25 mg tablet 25 mg PO HS Patient Comments: TAKE 1 TABLET BY MOUTH ONCE DAILY AT BEDTIME mirtazapine 30 mg tablet 30 mg PO HS Patient Comments: TAKE 1 TABLET BY MOUTH ONCE DAILY AT BEDTIME aripiprazole 10 mg tablet 10 mg PO DAILY Patient Comments: TAKE 1 TABLET BY MOUTH ONCE DAILY Caplyta 42 mg capsule 42 mg PO DAILY Patient Comments: TAKE 1 CAPSULE BY MOUTH ONCE DAILY qarothwfm-lxgheprzxwzgvp-mkpe 3-2.5 % (7 gram) kit 1 applic RI HS PRN (Reason: pain) Qty: 1 2RF hydrocortisone [Anusol-HC] 2.5 % cream with perineal applicator 1 applic RI BID PRN (Reason: hemorrhoids) Qty: 30 0RF polyethylene glycol 3350 [Miralax] 17 gram/dose powder 17 g PO DAILY Qty: 510 0RF Referrals Follow up/Referrals: Zaire Inman MD [Staff Physician] - See instructions Pj Hoover APRN [Primary Care Provider] - See instructions Activity Restrictions/Add. Instructions Additional Instructions/Restrictions: Return to the emergency department any worsening signs or symptoms, worsening bleeding, any discharge or drainage from the area, please follow-up with general surgery. Clinical Impressions Clinical Impression: External prolapsed hemorrhoids Instructions Patient Instructions: DI for Hemorrhoids Print Language Print Language: Estonian Discharge ED Provider: Neema Rich General Adult HPI General Chief complaint: GI Bleed Stated complaint: boil in rectum area bleeding Time Seen by Provider: 01/07/25 19:02 Mode of Arrival: Ambulatory Source of Information: Patient Limitations: No Limitations Description of Symptoms (Recalled from ER Triage Doc. by RN): pt to the ED with bleeding from her rectum. pt reports she was diagnosed with a hemorrhoid 3 days ago in the ED and was given cream but this morning she was using the bathroom and belives she busted the hemorrhiod when wiping. pt also reports a green/yellow drainage coming from the area as well. pt denies fevers or chills History of Present Illness HPI narrative: 34-year-old female presents the emergency department with pain, and episode of rectal bleeding. She states that she has an area on her rectum that she believes popped , today. Patient was seen in the emergency department for similar complaint on 01/04/2025 was diagnosed with a prolapsed hemorrhoid, other past medical history is consistent with hepatitis C, status posttreatment, she does have other past medical history consistent with hemorrhoids, she denies any fever chills chest pain shortness of breath nausea vomiting, admits to constipation, denies any urinary type symptomatology. Denies any melena, does admit to hematochezia at times, but denies any hemoptysis or hematemesis. Patient was treated with lidocaine/hydrocortisone cream with some relief to her symptomatology, however she is unable to get this medication due to needing a prior authorization . Hemorrhoid upon evaluation several days ago was noted to be prolapsed, not thrombosed, no infectious etiology. Triage vital grossly unremarkable, patient is a current everyday smoker, denies any alcohol or drug use. Onset (ago): day(s) Related Data Home Medications ?Medication ?Instructions ?Recorded ?Confirmed amitriptyline 25 mg tablet 25 mg PO HS 07/23/24 12/24/24 aripiprazole 10 mg tablet 10 mg PO DAILY 07/23/24 12/24/24 lumateperone 42 mg capsule 42 mg PO DAILY 07/23/24 12/24/24 (Caplyta) mirtazapine 30 mg tablet 30 mg PO HS 07/23/24 12/24/24 oxcarbazepine 300 mg tablet 300 mg PO DAILY 07/23/24 12/24/24 vortioxetine 5 mg tablet 5 mg PO DAILY 09/03/24 12/24/24 (Trintellix) Previous Rx's ?Medication ?Instructions ?Recorded ondansetron 8 mg disintegrating 8 mg PO Q12H n/v #30 tabs 08/05/24 tablet furosemide 20 mg tablet 20 mg PO DAILY #30 tabs 08/19/24 metoprolol succinate 50 mg 50 mg PO DAILY #90 tabs 08/19/24 tablet,extended release 24 hr sofosbuvir 400 mg-velpatasvir 100 See Rx Instructions .Route 09/19/24 mg tablet .COMPLEX #28 tabs Lactobacillus rhamnosus GG 10 1 cap PO BID #60 caps 12/24/24 billion cell capsule dicyclomine 20 mg tablet 20 mg PO QID #120 tabs 12/24/24 hydrocortisone 2.5 % topical cream 1 applic RI BID PRN hemorrhoids 01/04/25 with perineal applicator #30 grams (Anusol-HC) ebpyteipr-ephqeegkefdvbr-xbkt vera 1 applic RI HS PRN pain #1 ea 01/04/25 3 %-2.5 % (7 gram) rectal kit polyethylene glycol 3350 17 17 g PO DAILY #510 grams 01/04/25 gram/dose oral powder (Miralax) Allergies Allergy/AdvReac Type Severity Reaction Status Date / Time No Known Allergies Allergy Verified 12/24/24 15:30 [facility] Disclaimer: The information contained in this section may have been updated after the patient was seen, as this information can be updated by other users. Medical History History of hepatitis C Sinus bradycardia Syncope HTN (hypertension) Bipolar 1 disorder Surgical History History of tooth extraction History of tubal ligation History of appendectomy Family History Other Family history of cancer Social History Smoking Status: Current every day smoker alcohol intake: never substance use type: marijuana, crack/cocaine and IV drugs current occupational status: employed Travel in the last 8 weeks: None Have you lived/traveled outside US in past 30 days?: No Contact w/someone who lives/traveled outside US past 30 days?: No Exposure to someone with infectious disease in past 14 days?: No Do you have a fever (greater than 100.4 F or 38 C)?: No Have you tested positive for COVID-19: No Exposed to someone with COVID-19 in past 14 days?: No Do you have a sore throat?: No Do you have a cough?: No Do you have any weakness?: No Do you have any diarrhea?: No Are you experiencing any unusual bleeding?: No Do you have any muscle aches/pain?: No Do you have any abdominal pain?: Yes Are you experiencing loss of taste or smell?: No Other Medical History Have you received the Flu Vaccine for this season: No Have you received the Pneumonia Vaccine: No ROS Obtained: Yes All systems reviewed & no additional complaints except as documented Physical Exam General General appearance: alert and in no apparent distress Head Head exam: atraumatic and normocephalic Eye Eye exam: Present PERRL and EOMI ENT ENT exam: Present mucous membranes moist Neck Neck exam: Present normal inspection Chest Chest inspection: Present normal inspection and symmetric chest wall rise Respiratory Respiratory exam: Present normal lung sounds bilaterally; Absent respiratory distress Cardiovascular Cardiovascular exam: Present regular rate and normal rhythm Abdominal Exam Abdominal exam: Present soft; Absent tenderness Rectal Exam Rectal exam: Present hemorrhoids comment: I along with female nurse external auditor performed rectal exam, patient has an obvious prolapsed large hemorrhoid located approximately 12 PM, it is somewhat reducible, however attempt to reduction was attempted, patient had significant pain with this, patient did get significant relief from woqi-fqn-snrgibq//hydrocortisone cream. There is no active bleeding, no erythema, no evidence of thrombosed hemorrhoid at this time, no evidence of any wound dehiscence or drainage. Extremities Exam Extremities exam: Present normal inspection Neurological Exam Neurological exam: Present alert and oriented X3 Psychiatric Psychiatric exam: Present normal affect Skin Skin exam: Present warm and dry Medical Decision Making Medical Records Medical records reviewed: Yes I reviewed the patient's medical records. Screening: Per USPSTF and CDC recommendations, given the prevalence of disease in our region, it is our hospital?s policy to screen for HIV and viral Hepatitis for all patients aged 18 and over and those with ongoing risk factors. Shayan Inquiry Pt receiving controlled substance: No Shayan was queried for this patient: No Vital Signs: 01/07/25 18:32 01/07/25 19:47 Temperature 98.3 F 98.1 F Temperature Source Oral Pulse Rate 57 L Pulse Rate [Left Radial] 67 Respiratory Rate 16 20 Blood Pressure 107/69 L Blood Pressure [Right Arm] 111/62 Blood Pressure Mean [Right Arm] 78 Blood Pressure Source [Right Arm] Automatic Cuff Blood Pressure Position [Right Arm] Sitting 02 Sat by Pulse Oximetry 100 Oxygen Delivery Method Room Air Room Air Orders (Tests/Meds): ED MEDICATIONS Discontinued Medications Generic Name Dose Route Start Last Admin Trade Name Freq PRN Reason Stop Dose Admin Hydrocortisone Acetate 30 mg 01/07/25 19:28 01/07/25 19:38 Hydrocortisone 30mg Suppository RC 01/07/25 19:29 30 mg ONCE ONE Administration ORDERS Category Date Time Status HIV Combo Stat Lab 01/07/25 19:04 Ordered Medical Decision Narrative: 34-year-old female presents emergency department with rectal pain, differential diagnosis could include, anal fissure, internal hemorrhoid, external hemorrhoid, prolapsed hemorrhoid, thrombosed hemorrhoid, perirectal abscess. I discussed patient case with Dr. Rich. Patient does not have a perirectal/anal abscess, there is no evidence of erythema, no evidence of wound dehiscence or drainage, patient does have large prolapsed hemorrhoid, with no evidence of bleeding at this time, will give patient hydrocortisone cream (Anusol) here in the emergency department. Recommend further evaluation with general surgery. Strict ED return precautions given. Patient voiced understanding to the current treatment plan/discharge plan. Also recommend further treatment with cvja-zuu-fcqzvlz hemorrhoidal creams. Patient voiced understanding of current plan/discharge plan. I was notified upon discharge of the patient and unfortunately at this facility we do not have HC rectal cream as stated above, will do a small dose of Uro-Jet for symptomatic relief of the patient's hemorrhoid, recommend drhb-soe-wgybxgw relief of her hemorrhoids. Patient voiced understanding. Critical Care Critical Care Time Critical Care Time: No
[2025-01-07] MEDS: HYDROCORTISONE 30MG SUPPOSITORY 30 MG RC (19:38)
[2025-01-07 19:47] VITALS: BP 107/69; PULSE 57; RESP 20; TEMP 36.7; O2SAT 97
== END 2025-01-07 20:13 | disposition home or self-care (01) ==
PROVIDERS: Emergency Provider Emergency Medicine; PCP Nurse Practitioner Family
DX: K64.8 Other hemorrhoids (principal)
CPT/HCPCS: 99283

== ENCOUNTER 2025-09-02 18:21 | Emergency (ER) | payer MEDICAID, SELFPAY ==
[2025-09-02 18:34] VITALS: BP 158/76; PULSE 104; RESP 20; TEMP 36.9; O2SAT 100; BMI 25.4
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
[2025-09-02] MEDS: ACETAMINOPHEN 500MG TAB 1000 MG PO (18:50)
[2025-09-02] MEDS: IBUPROFEN 800 MG TABLET PO (18:51)
--- OUTSIDE RECORDS SUMMARY | 2025-09-02 18:54 | XMS_ITS | Clinical Summary ---
Author Organization [facility] [place] [address] Phone Care Team Providers Care Sleep Medicine Physician Name Role Phone No Pcp, Provider Not In [facility] Primary Care Provid er Unavailable Allergies No known active allergies Medications No known medications Surgical History Surgery Date Site/Laterality Comments TUBAL LIGATION Bilateral Medical History Medical History Date Comments Hx of cholecystectomy Social History Tobacco Use Types Packs/Day Years Used Date Smoking Tobacco: Every Day Cigarettes Smokeless Tobacco: Never Tobacco Cessation:Ready to Q uit: Not Asked; Counseling Given: Not Answered Alcohol Use Standard Drinks/Week Comments Not Currently 0 (1 standard drink = 0.6 oz pur e alcohol) Comments No Sex and Gender Information Value Date Recorded Sex Assigned at Not on file Legal Sex Female 5:10 PM EDT Gender Identity Not on file Sexual Orientation Not on file Last Filed Vital Signs Vital Sign Reading Time Taken Comments Blood Pressure 117/64 12/19/2024 5:39 PM EDT Pulse 74 12/19/2024 5:39 PM EDT Temperature 37.4 C (99.3 F) 12/19/2024 5:53 PM EDT Respiratory Rate 20 12/19/2024 5:12 PM EDT Oxygen Saturation 95% 12/19/2024 5:12 PM EDT Inhaled Oxygen Concentration - - Weight 82.1 kg (181 lb) 12/19/2024 5:51 PM EDT Height 162.6 cm (5' 4 ) 12/19/2024 5:51 PM EDT Body Mass Index 31.07 12/19/2024 5:51 PM EDT Plan of Treatment Health Maintenance Due Date Last Done Comments Annual Wellness Exam 1995 Cervical Cancer Screening 2013 Pap Smear 2013 HPV/Pap Cotest 2022 COVID-19 Vaccine (2024- season) 2025 06/15/2024, 02/24/2021, 01/27/2021 Influenza Vaccine (#1) 2025 04/27/2024 DTaP/TDaP/Td (4 - Td or Tdap) 04/27/2034 04/27/2024, 02/01/2017, 06/14/2004, Additional history exists Pneumococcal Vaccine 0-49 Completed 04/27/2024, 09/2022 Hepatitis B Vaccine Completed 06/15/2024, 04/27/2024, 06/14/2004, Additional history exists Meningococcal B Vaccine Aged Out No l onger eligible based on patient's age to complete this topic Insurance [facility] [id number] [facility] Care Teams Sleep Medicine Physician Relationship Specialty Start Date End Date No Pcp, Provider Not In Epic PCP - General 12/19/24
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
[2025-09-02 20:33] VITALS: BP 148/77; PULSE 89; RESP 18; TEMP 36.4; O2SAT 99
[2025-09-02] MEDS: LIDOCAINE 5% TRANSDERMAL PATCH 1 EACH TD (20:36)
== END 2025-09-02 20:37 | disposition home or self-care (01) ==
PROVIDERS: Emergency Provider Student in an Organized Health Care Education/Training Program; PCP Nurse Practitioner Family
DX: R07.81 Pleurodynia (principal); M25.511 Pain in right shoulder
CPT/HCPCS: 71100; 73030; 99283; 99284